=== PATIENT | male | born 1960 | race Hispanic/Latino ===

== ENCOUNTER 2018-01-20 12:41 | Emergency (ER) | payer BC ==
[2018-01-20] MEDS ORDERED: ASPIRIN 81 MG CHEWABLE TABLET ONE (13:36)
[2018-01-20] MEDS ORDERED: NA CHLORIDE 0.9% 500 ML ONE (13:36)
[2018-01-20 13:39] LABS: Absolute Lymphocytes (CBC) 4.4 K/uL (0.7-4.9); Absolute Monocytes 0.9 K/uL (0.1-1.3); Absolute Neutrophil 7.6 K/uL (1.8-8.0); Basophils % 0.7 % (0-1.3); Eosinophils % 0.7 % (0-4.4); Hematocrit 41.3 % (39.6-49.0); Lymphocytes % 33.6 % (15.3-44.8); MCH 30.2 pg (27.0-35.0); MCV 91.1 fL (80-100); MPV 8.7 fL (7.6-11.3); RBC Red Blood Cell Count 4.53 M/uL (4.33-5.43)
[2018-01-20 13:49] LABS: Bicarbonate 28 mEq/L (21-31); Glucose Level 115 mg/dL (65-120); Potassium 3.1 mEq/L (3.6-5.0); Sodium Level 141 mEq/L (135-145)
[2018-01-20 13:56] LABS: ALT/SGPT 17 IU/L (10-60); AST/SGOT 15 IU/L (10-42); Albumin 3.5 g/dL (3.2-5.5); Alkaline Phosphatase 59 IU/L (42-121); BUN Blood Urea Nitrogen 14 mg/dL (6-20); Bilirubin Direct < 0.1 mg/dL (0-0.2); Bilirubin Total 0.6 mg/dL (0.3-1.2); Creatine Phosphokinase 59 IU/L (22-269); Magnesium 1.8 mg/dL (1.8-2.5); Protein, Total 6.3 g/dL (6.0-8.3)
--- NOTE | 2018-01-20 14:26 | RAD REPORT ---
EXAM DESCRIPTION: RAD - Chest Single View - 01/20/2018 1:35 pm CLINICAL HISTORY: Chest pain COMPARISON: None. TECHNIQUE: AP portable chest image was obtained 1332 hours . FINDINGS: Lungs are clear. Heart and vasculature are normal. No measurable pleural effusion and no p neumothorax. No gross bony abnormality seen. No acute aortic findings suspected. IMPRESSION: No acute cardiopulmonary process.
[2018-01-20 16:11] LABS: Urine Blood TRACE (NEG); Urine Glucose NEGATIVE (NEG); Urine Protein NEGATIVE (NEG); Urine Specific Gravity >1.030 (1.005-1.030); Urine pH 5.5 (5.0-7.0)
--- NOTE | 2018-01-20 18:24 | ER ---
Nurse's Notes [facility] Name: Goyo Correa Jr Age: 57 yrs Sex: Male : 1960 Arrival Date: 01/20/2018 Time: 12:45 Bed 30 Private MD: None, None Diagnosis: Chest pain, unspecified;Hypertensive heart disease-not controlled Presentation: 01/20 12:49 Presenting complaint: Patient states: Chest pain that started 2 days ago after given aj steroid injection for allergic reaction. Patient reports chest pain was worse after doing yard work this AM. Transition of care: patient was not received from another setting of care. Onset of symptoms was January 20, 2018. Care prior to arrival: None. 12:49 Method Of Arrival: Ambulatory aj 12:49 Acuity: BELLE 3 aj 13:05 Risk Assessment: Do you want to hurt yourself or someone else? Patient reports no kr2 desire to harm self or others. Initial Sepsis Screen: Does the patient meet any 2 criteria? No. Patient's initial sepsis screen is negative. Does the patient have a suspected source of infection? No. Patient's initial sepsis screen is negative. Triage Assessment: 12:50 General: Appears in no apparent distress. comfortable, Behavior is calm, cooperative, aj appropriate for age. Pain: Complains of pain in right clavicle, left clavicle, anterior aspect of right upper chest and anterior aspect of left upper chest. Neuro: Level of Consciousness is awake, alert, obeys commands, Oriented to person, place, time, situation, Appropriate for age. Cardiovascular: Reports chest pain. Respiratory: Airway is patent Respiratory effort is even, unlabored, Respiratory pattern is regular, symmetrical. Derm: Skin is intact, is healthy with good turgor, Skin is pink, warm \T\ dry. normal. Historical: - Allergies: 12:50 Bees; aj - Home Meds: 12:50 prednisone Oral [Active]; aj - PMHx: 12:50 Hypertension; aj - PSHx: 12:50 None; aj - Immunization history:: Adult Immunizations up to date. - Social history:: Smoking status: Patient uses tobacco products, smokes one pack cigarettes per day. Patient uses alcohol, on a daily basis. - Ebola Screening: : No symptoms or risks identified at this time. Screenin:05 Abuse screen: Denies threats or abuse. Denies injuries from another. Nutritional kr2 screening: No deficits noted. Tuberculosis screening: No symptoms or risk factors identified. Fall Risk None identified. Assessment: 13:03 General: Appears in no apparent distress. comfortable, well groomed, well developed, kr2 well nourished, Behavior is calm, cooperative, appropriate for age. Pain: Complains of pain in anterior aspect of right upper chest, anterior aspect of left upper chest and mid-sternal area Pain does not radiate. Pain currently is 0 out of 10 on a pain scale. at worst was 8 out of 10 on a pain scale. Quality of pain is described as sharp, Pain began 1 day ago. Is intermittent, Alleviated by rest, Aggravated by increased activity. Neuro: Level of Consciousness is awake, alert, obeys commands, Oriented to person, place, time, situation. Cardiovascular: Capillary refill < 3 seconds in bilateral fingers Patient's skin is warm and dry. Rhythm is sinus rhythm. Respiratory: Airway is patent Respiratory effort is even, unlabored, Respiratory pattern is regular, symmetrical. GI: Abdomen is flat, non-distended. : No signs and/or symptoms were reported regarding the genitourinary system. EENT: Oral mucosa is moist. Derm: Skin is intact, is healthy with good turgor, Skin is pink, warm \T\ dry. Musculoskeletal: Circulation, motion, and sensation intact. 14:00 Reassessment: Patient appears in no apparent distress at this time. Patient and/or kr2 family updated on plan of care and expected duration. Pain level reassessed. Patient is alert, oriented x 3, equal unlabored respirations, skin warm/dry/pink. Patient denies pain at this time. 15:00 Reassessment: Patient appears in no apparent distress at this time. Patient and/or kr2 family updated on plan of care and expected duration. Pain level reassessed. Patient is alert, oriented x 3, equal unlabored respirations, skin warm/dry/pink. Patient states feeling better. 16:14 Reassessment: Patient appears in no apparent distress at this time. Patient and/or kr2 family updated on plan of care and expected duration. Pain level reassessed. Patient is alert, oriented x 3, equal unlabored respirations, skin warm/dry/pink. Patient denies pain at this time. 16:15 Reassessment: Called lab to check on results of blood work, laboratory tech reports they had a kr2 machine down and so they got behind on chemistries and are now working to catch up. Patient and family notified. 17:15 Reassessment: Patient appears in no apparent distress at this time. Patient and/or kr2 family updated on plan of care and expected duration. Pain level reassessed. Patient is alert, oriented x 3, equal unlabored respirations, skin warm/dry/pink. Patient denies pain at this time. Patient states feeling better. 18:39 Reassessment: Patient appears in no apparent distress at this time. Patient and/or kr2 family updated on plan of care and expected duration. Pain level reassessed. Patient is alert, oriented x 3, equal unlabored respirations, skin warm/dry/pink. Patient denies pain at this time. Patient states feeling better. Vital Signs: 12:50 BP 161 / 106; Pulse 62; Resp 19; Temp 98.3; Pulse Ox 98% on R/A; Weight 95.25 kg; aj Height 5 ft. 9 in. (175.26 cm); 13:40 BP 155 / 78; Pulse 58; Resp 18; Pulse Ox 98% on R/A; kr2 15:00 BP 132 / 77; Pulse 58; Resp 17; Pulse Ox 100% on R/A; kr2 16:16 BP 134 / 85; Pulse 63; Resp 17; Pulse Ox 99% on R/A; kr2 17:44 BP 157 / 85; Pulse 90; Resp 18; Pulse Ox 99% on R/A; mh5 12:50 Body Mass Index 31.01 (95.25 kg, 175.26 cm) ED Course: 12:45 Patient arrived in ED. mr 12:45 None, None is Private Physician. mr 12:49 Triage completed. aj 12:50 Arm band placed on right wrist. Patient placed in an exam room. EKG completed in triage. Results shown to MD. 12:55 Anthony Zamudio PA is PHCP. cp 12:55 Himanshu Aparicio MD is Attending Physician. cp 12:55 EKG done, by county program technician. reviewed by Anthony BAIRES. at1 13:03 Taylor Pa, RN is Primary Nurse. kr2 13:06 Patient has correct armband on for positive identification. Bed in low position. Call kr2 light in reach. Side rails up X 1. Adult w/ patient. bulk clerk on. Pulse ox on. NIBP on. Door closed. Warm blanket given. Head of bed elevated. 13:06 Patient maintains SpO2 saturation greater than 95% on room air. kr2 13:25 Inserted saline lock: 20 gauge in right antecubital area, using aseptic technique. kr2 Blood collected. 13:34 X-ray completed. Portable x-ray completed in exam room. Patient tolerated procedure mh1 well. 13:35 XRAY Chest (1 view) In Process Unspecified. EDMS 16:58 EKG done, by county program technician. reviewed by Anthony BAIRES. 3 18:23 Jose Raul Wu MD is Referral Physician. cp 18:39 No provider procedures requiring assistance completed. IV discontinued, intact, kr2 bleeding controlled, No redness/swelling at site. Pressure dressing applied. Administered Medications: 13:40 Drug: NS 0.9% 500 ml Route: IV; Rate: bolus; Site: right antecubital; kr2 15:00 Follow up: Response: No adverse reaction; IV Status: Completed infusion kr2 13:40 Drug: Aspirin Chewable Tablet 324 mg Route: PO; kr2 14:41 Follow up: Response: No adverse reaction kr2 18:37 Drug: Potassium Chloride 40 mEq Route: PO; kr2 18:38 Follow up: Response: Medication administered at discharge. kr2 18:37 Drug: Norvasc 10 mg Route: PO; kr2 18:38 Follow up: Response: No adverse reaction; Medication administered at discharge. kr2 Outcome: 18:23 Discharge ordered by MD. cp 18:40 Discharged to home ambulatory, with family. kr2 18:40 Condition: good 18:40 Discharge instructions given to patient, family, Instructed on discharge instructions, follow up and referral plans. medication usage, Demonstrated understanding of instructions, follow-up care, medications, Prescriptions given X 1. 18:40 Patient left the ED. kr2 Signatures: Dispatcher [employer] EDMS Gianna Torrez RN RN aj Rivera, Maria García Gloriaha mh1 Gianna correa, blanket weaver EKG Tat1 Anthony Zamudio PA PA cp Martinez, Maria 5 Taylor Pa RN RN kr2 Angélica Lawton 3 Corrections: (The following items were deleted from the chart) 12:52 12:50 Arm band placed on right wrist. Patient placed in waiting room, Patient notified aj of wait time aj
--- NOTE | 2018-01-20 18:24 | EDPHYS ---
Physician Documentation [facility] Name: Goyo Correa Jr Age: 57 yrs Sex: Male : 1960 Arrival Date: 01/20/2018 Time: 12:45 Bed 30 Private MD: None, None ED Physician Himanshu Aparicio HPI: 01/20 13:09 This 57 yrs old Male presents to ER via Ambulatory with complaints of Chest cp Pain. Historical: - Allergies: 12:50 Bees; aj - Home Meds: 12:50 prednisone Oral [Active]; aj - PMHx: 12:50 Hypertension; aj - PSHx: 12:50 None; aj - Immunization history:: Adult Immunizations up to date. - Social history:: Smoking status: Patient uses tobacco products, smokes one pack cigarettes per day. Patient uses alcohol, on a daily basis. - Ebola Screening: : No symptoms or risks identified at this time. ROS: 13:10 Constitutional: Negative for body aches, chills, fever, poor PO intake. cp 13:10 Eyes: Negative for injury, pain, redness, and discharge. cp Exam: 13:10 ECG was reviewed by the Attending Physician. cp 13:15 Constitutional: The patient appears in no acute distress, alert, awake, comfortable, cp non-diaphoretic, non-toxic, well developed, well nourished. 13:15 Head/Face: Normocephalic, atraumatic. cp 16:45 ECG was reviewed by the Attending Physician. cp Vital Signs: 12:50 BP 161 / 106; Pulse 62; Resp 19; Temp 98.3; Pulse Ox 98% on R/A; Weight 95.25 kg; aj Height 5 ft. 9 in. (175.26 cm); 13:40 BP 155 / 78; Pulse 58; Resp 18; Pulse Ox 98% on R/A; kr2 15:00 BP 132 / 77; Pulse 58; Resp 17; Pulse Ox 100% on R/A; kr2 16:16 BP 134 / 85; Pulse 63; Resp 17; Pulse Ox 99% on R/A; kr2 17:44 BP 157 / 85; Pulse 90; Resp 18; Pulse Ox 99% on R/A; mh5 12:50 Body Mass Index 31.01 (95.25 kg, 175.26 cm) aj MDM: 12:55 Patient medically screened. 18:22 Data reviewed: vital signs, nurses notes, lab test result(s), EKG, radiologic studies, cp plain films. 18:22 Test interpretation: by ED physician or midlevel provider: ECG, plain radiologic cp studies. Counseling: I had a detailed discussion with the patient and/or guardian regarding: the historical points, exam findings, and any diagnostic results supporting the discharge/admit diagnosis, lab results, radiology results, the need for outpatient follow up, a slip caster. 01/20 13:09 Order name: Basic Metabolic Panel cp 01/20 16:27 Interpretation: Normal except: K 3.1. cp 01/20 13:09 Order name: BNP; Complete Time: 15:54 cp 01/20 15:54 Interpretation: Abnormal: BNP 161. cp 01/20 13:09 Order name: CBC with Diff; Complete Time: 14:38 cp 01/20 14:39 Interpretation: Normal except: WBC 13.1. cp 01/20 13:09 Order name: Ckmb cp 01/20 13:09 Order name: CPK cp 01/20 13:09 Order name: LFT's cp 01/20 13:09 Order name: Magnesium cp 01/20 13:09 Order name: PT-INR; Complete Time: 14:38 cp 01/20 13:09 Order name: Ptt, Activated; Complete Time: 14:38 cp 01/20 13:09 Order name: Troponin (emerg Dept Use Only); Complete Time: 15:54 cp 01/20 16:27 Interpretation: TROPED < 0.03; Reviewed. 01/20 13:09 Order name: XRAY Chest (1 view); Complete Time: 14:38 cp 01/20 15:55 Order name: Urine Dipstick--Ancillary (enter results); Complete Time: 16:27 bd 01/20 16:27 Interpretation: Normal except: USPGR >1.030; UBLD TRACE. cp 01/20 16:33 Order name: Troponin I; Complete Time: 18:21 cp 01/20 12:55 Order name: EKG; Complete Time: 12:56 cp 01/20 12:55 Order name: EKG - Nurse/Tech; Complete Time: 13:31 cp 01/20 13:09 Order name: Cardiac monitoring; Complete Time: 13:31 cp 01/20 13:09 Order name: IV Saline Lock; Complete Time: 13: 01/20 13:09 Order name: Labs collected and sent; Complete Time: : 01/20 13: Order name: O2 Per Protocol; Complete Time: : 01/20 13:09 Order name: O2 Sat Monitoring; Complete Time: 13: 01/20 13:09 Order name: Urine Dipstick-Ancillary (obtain specimen); Complete Time: 16:17 01/20 16:33 Order name: EKG; Complete Time: 16:34 01/20 16:33 Order name: EKG - Nurse/Tech cp EC:10 Rate is 63 beats/min. Rhythm is regular. AR interval is normal. QRS interval is cp prolonged at 104 msec. QT interval is normal. No ST changes noted. Interpreted by me. Reviewed by me. 16:45 Rate is 49 beats/min. Rhythm is regular. AR interval is normal. QRS interval is normal. cp QT interval is normal. No ST changes noted. Interpreted by me. Reviewed by me. Administered Medications: 13:40 Drug: NS 0.9% 500 ml Route: IV; Rate: bolus; Site: right antecubital; kr2 15:00 Follow up: Response: No adverse reaction; IV Status: Completed infusion kr2 13:40 Drug: Aspirin Chewable Tablet 324 mg Route: PO; kr2 14:41 Follow up: Response: No adverse reaction kr2 18:37 Drug: Potassium Chloride 40 mEq Route: PO; kr2 18:38 Follow up: Response: Medication administered at discharge. kr2 18:37 Drug: Norvasc 10 mg Route: PO; kr2 18:38 Follow up: Response: No adverse reaction; Medication administered at discharge. kr2 Disposition: 19:21 Co-signature as Attending Physician, Himanshu Aparicio MD I agree with the assessment and kdr plan of care. Disposition: 01/20/18 18:23 Discharged to Home. Impression: Chest pain, unspecified, Hypertensive heart disease - not controlled. - Condition is Stable. - Discharge Instructions: Nonspecific Chest Pain, Hypertension, How to Take Your Blood Pressure, [id number], Aspirin and Your Heart, Managing Your High Blood Pressure. - Prescriptions for Norvasc 5 mg Oral Tablet - take 1 tablet by ORAL route once daily; 20 tablet. - Medication Reconciliation Form, Thank You Letter, Antibiotic Education, Prescription Opioid Use form. - Follow up: Jose Raul Wu MD; When: 2 - 3 days; Reason: Recheck today's complaints. - Problem is new. - Symptoms have improved. Signatures: Dispatcher [employer] EDGianna Olsen RN RN Himanshu Cuello MD MD kdr Anthony Zamudio PA PA cp Taylor Pa RN RN kr2 Corrections: (The following items were deleted from the chart) 18:40 18:23 01/20/2018 18:23 Discharged to Home. Impression: Chest pain, unspecified; kr2 Hypertensive heart disease - not controlled. Condition is Stable. Forms are Medication Reconciliation Form, Thank You Letter, Antibiotic Education, Prescription Opioid Use. Follow up: Jose Raul Wu; When: 2 - 3 days; Reason: Recheck today's complaints. Problem is new. Symptoms have improved. cp
[2018-01-20] MEDS ORDERED: POTASSIUM CL SA 10 MEQ TAB PO ONE (18:30)
[2018-01-20] MEDS ORDERED: AMLODIPINE 5 MG TAB ONE (18:30)
[2018-01-20 19:10] LABS: CKMB Creatine Kinase MB 1.3 ng/ml (0.3-4.0)
--- NOTE | 2018-01-21 06:57 | EKG ---
Test Date: 2018-01-20 Test Time: 12:55:59 Capacitor Assembler: MARIYA MEASUREMENT RESULTS: Intervals: Rate: 63 AL: 136 QRSD: 104 QT: 422 QTc: 431 [place]: P: 73 AL: 136 QRS: 53 T: 53 INTERPRETIVE STATEMENTS: Normal sinus rhythm with sinus arrhythmia Normal ECG No previous ECG available for comparison Electronically Signed On 01-21-18 06:55:27 CDT by Jose Raul Wu
--- NOTE | 2018-01-21 06:57 | EKG ---
Test Date: 2018-01-20 Test Time: 16:38:18 File Clerk: MARIYA MEASUREMENT RESULTS: Intervals: Rate: 49 NE: 142 QRSD: 98 QT: 496 QTc: 448 [place]: P: 53 NE: 142 QRS: 43 T: 48 INTERPRETIVE STATEMENTS: Sinus bradycardia Nonspecific T wave abnormality Abnormal ECG Compared to ECG 01/20/2018 12:55:59 T-wave abnormality now present Sinus rhythm no longer present Sinus arrhythmia no longer present Electronically Signed On 01-21-18 06:55:15 CDT by Jose Raul Wu
== END 2018-01-20 18:40 | disposition home or self-care (01) ==
LOC: ER 12:41
DX: I11.9 Hypertensive heart disease without heart failure (principal); F17.210 Nicotine dependence, cigarettes, uncomplicated
CPT/HCPCS: 36415; 71045; 80048; 80076; 81003; 82550; 82553; 83735; 83880; 84484; 85025; 85610; 85730; 93005; 96360; 99285

== ENCOUNTER 2018-01-26 03:04 | Emergency (ER) | payer BC ==
[2018-01-26] MEDS ORDERED: FAMOTIDINE 20 MG/2 ML VIAL IV ONE (03:38)
[2018-01-26] MEDS ORDERED: METHYLPREDNISOLONE 125 MG INJ ONE (03:38)
[2018-01-26] MEDS ORDERED: DIPHENHYDRAMINE 50 MG/ML VIAL ONE (03:38)
--- NOTE | 2018-01-26 06:15 | ER ---
Nurse's Notes [facility] Name: Goyo Correa Jr Age: 57 yrs Sex: Male : 1960 Arrival Date: 01/26/2018 Time: 03:05 Bed 7 Private MD: None, None Diagnosis: Angioedema Presentation: 01/26 03:16 Presenting complaint: Patient states: I have swelling on the left side of my mouth and tl2 my left hand. Denies difficulty breathing. Reports stopping his amlodipine yesterday due to feet swelling. Pt reports having a swollen tongue 2 weeks ago. Transition of care: patient was not received from another setting of care. Onset of symptoms was January 26, 2018 at 02:00. Risk Assessment: Do you want to hurt yourself or someone else? Patient reports no desire to harm self or others. Initial Sepsis Screen: Does the patient meet any 2 criteria? No. Patient's initial sepsis screen is negative. Does the patient have a suspected source of infection? No. Patient's initial sepsis screen is negative. Care prior to arrival: None. 03:16 Method Of Arrival: Ambulatory tl2 03:16 Acuity: BELLE 3 tl2 Triage Assessment: 03:18 General: Appears in no apparent distress. comfortable, Behavior is calm, cooperative, tl2 appropriate for age. Pain: Denies pain. Neuro: Level of Consciousness is awake, alert, obeys commands, Oriented to person, place, time, situation. Cardiovascular: Denies chest pain. Respiratory: Airway is patent Respiratory effort is even, unlabored, Respiratory pattern is regular, symmetrical. GI: No signs and/or symptoms were reported involving the gastrointestinal system. : No signs and/or symptoms were reported regarding the genitourinary system. Derm: Skin is pink, warm \T\ dry. Reports itching. Musculoskeletal: Swelling present in left hand. Historical: - Allergies: 03:18 Bees; tl2 - Home Meds: 03:18 Prednisone Oral [Active]; tl2 - PMHx: 03:18 Hypertension; tl2 - Immunization history:: Adult Immunizations up to date. - Social history:: Smoking status: Patient/guardian denies using tobacco. - Ebola Screening: : No symptoms or risks identified at this time. - Family history:: not pertinent. - Hospitalizations: : No recent hospitalization is reported. Screenin:25 Abuse screen: Denies threats or abuse. Nutritional screening: No deficits noted. tl2 Tuberculosis screening: No symptoms or risk factors identified. Fall Risk None identified. Assessment: 03:46 General: see triage assessment. tl2 04:40 Reassessment: Patient appears in no apparent distress at this time. No changes from tl2 previously documented assessment. Patient and/or family updated on plan of care and expected duration. Pain level reassessed. Patient is alert, oriented x 3, equal unlabored respirations, skin warm/dry/pink. 05:34 Reassessment: Patient appears in no apparent distress at this time. Patient and/or tl2 family updated on plan of care and expected duration. Pain level reassessed. Patient is alert, oriented x 3, equal unlabored respirations, skin warm/dry/pink. Swelling in face and hand have not changed. Pt denies any pain or breathing difficulty. MD notified. 06:43 Reassessment: Patient appears in no apparent distress at this time. Patient and/or tl2 family updated on plan of care and expected duration. Pain level reassessed. Patient is alert, oriented x 3, equal unlabored respirations, skin warm/dry/pink. Pt and family verbalized understanding of discharge instructions, need for follow up and prescription usage Patient states feeling better. Vital Signs: 03:18 BP 109 / 54; Pulse 77; Resp 18; Temp 98.3(O); Pulse Ox 100% on R/A; Weight 95.25 kg; tl2 Height 5 ft. 9 in. (175.26 cm); Pain 0/10; 04:39 BP 119 / 77; Pulse 54; Resp 18; Pulse Ox 96% on R/A; tl2 05:34 BP 111 / 73; Pulse 52; Resp 18; Pulse Ox 97% on R/A; tl2 06:43 BP 129 / 91; Pulse 56; Resp 18; Pulse Ox 97% on R/A; tl2 03:18 Body Mass Index 31.01 (95.25 kg, 175.26 cm) tl2 ED Course: 03:05 Patient arrived in ED. ds1 03:05 None, None is Private Physician. ds1 03:06 Dominic Velazquez MD is Attending Physician. rn 03:16 Shanta Carrillo RN is Primary Nurse. tl2 03:17 Triage completed. tl2 03:18 Arm band placed on right wrist. tl2 03:25 Patient has correct armband on for positive identification. Bed in low position. Call tl2 light in reach. Side rails up X 1. Adult w/ patient. 03:45 Inserted saline lock: 20 gauge in left antecubital area, using aseptic technique. tl2 06:43 No provider procedures requiring assistance completed. IV discontinued, intact, tl2 bleeding controlled, No redness/swelling at site. Pressure dressing applied. Administered Medications: 03:46 Drug: SOLU-Medrol 125 mg Route: IVP; Site: left antecubital; tl2 06:45 Follow up: Response: No adverse reaction; No change in condition tl2 03:46 Drug: Pepcid 20 mg Route: IVP; Site: left antecubital; tl2 06:46 Follow up: Response: No adverse reaction; No change in condition tl2 03:46 Drug: Benadryl 25 mg Route: IVP; Site: left antecubital; tl2 06:46 Follow up: Response: No adverse reaction; No change in condition tl2 Outcome: 06:15 Discharge ordered by . rn 06:43 Discharged to home ambulatory, with family. tl2 06:43 Condition: stable 06:43 Discharge instructions given to patient, family, Instructed on discharge instructions, follow up and referral plans. medication usage, Demonstrated understanding of instructions, follow-up care, medications, Prescriptions given X 2. 06:46 Patient left the ED. tl2 Signatures: Erin Diallo ds1 Dominic Velazquez MD MD rn Knox, Taylor, RN RN tl2
--- NOTE | 2018-01-26 06:16 | EDPHYS ---
Physician Documentation [facility] Name: Goyo Correa Jr Age: 57 yrs Sex: Male : 1960 Arrival Date: 01/26/2018 Time: 03:05 Bed 7 Private MD: None, None ED Physician Dominic Velazquez HPI: 01/26 05:15 This 57 yrs old Male presents to ER via Ambulatory with complaints of Swelling.rn 05:15 The patient or guardian reports swelling. The complaints affect the left hand rn diffusely. Onset: The symptoms/episode began/occurred yesterday. Modifying factors: The symptoms are alleviated by nothing, the symptoms are aggravated by nothing. Severity of symptoms: At their worst the symptoms were moderate, in the emergency department the symptoms are unchanged. The patient has experienced a previous episode. Reports hand and left face swelling, began today, had happen to right hand a few weeks ago, then had tongue swelling last week, felt fine when went to bed, woke up with swelling. No oral or tongue swelling. No fever. No trauma. . Historical: - Allergies: 03:18 Bees; tl2 - Home Meds: 03:18 Prednisone Oral [Active]; tl2 - PMHx: 03:18 Hypertension; tl2 - Immunization history:: Adult Immunizations up to date. - Social history:: Smoking status: Patient/guardian denies using tobacco. - Ebola Screening: : No symptoms or risks identified at this time. - Family history:: not pertinent. - Hospitalizations: : No recent hospitalization is reported. ROS: 05:15 Constitutional: Negative for fever, chills, and weight loss, Eyes: Negative for injury, rn pain, redness, and discharge, Neck: Negative for injury, pain, and swelling, Cardiovascular: Negative for chest pain, palpitations, and edema, Respiratory: Negative for shortness of breath, cough, wheezing, and pleuritic chest pain, Abdomen/GI: Negative for abdominal pain, nausea, vomiting, diarrhea, and constipation, Back: Negative for injury and pain, MS/Extremity: Negative for injury and deformity, Skin: Negative for injury, rash, and discoloration, Neuro: Negative for headache, weakness, numbness, tingling, and seizure. Exam: 05:15 Constitutional: This is a well developed, well nourished patient who is awake, alert, rn and in no acute distress. Head/Face: Mild swelling to left buccal space, no warmth or fluctuance Eyes: Pupils equal round and reactive to light, extra-ocular motions intact. Lids and lashes normal. Conjunctiva and sclera are non-icteric and not injected. Cornea within normal limits. Periorbital areas with no swelling, redness, or edema. ENT: No oral or tongue swelling, no stridor Cardiovascular: Regular rate and rhythm with a normal S1 and S2. No gallops, murmurs, or rubs. Normal PMI, no JVD. No pulse deficits. Respiratory: Lungs have equal breath sounds bilaterally, clear to auscultation and percussion. No rales, rhonchi or wheezes noted. No increased work of breathing, no retractions or nasal flaring. Abdomen/GI: Soft, non-tender, with normal bowel sounds. No distension or tympany. No guarding or rebound. No evidence of tenderness throughout. MS/ Extremity: Pulses equal, no cyanosis. Neurovascular intact. Full, normal range of motion. + mild diffuse swelling of left hand without signs of infection, no fluctuance, no break in skin. swelling extends just proximal to left wrist. Neuro: Awake and alert, GCS 15, oriented to person, place, time, and situation. Cranial nerves II-XII grossly intact. Motor strength 5/5 in all extremities. Sensory grossly intact. Cerebellar exam normal. Normal gait. Vital Signs: 03:18 BP 109 / 54; Pulse 77; Resp 18; Temp 98.3(O); Pulse Ox 100% on R/A; Weight 95.25 kg; tl2 Height 5 ft. 9 in. (175.26 cm); Pain 0/10; 04:39 BP 119 / 77; Pulse 54; Resp 18; Pulse Ox 96% on R/A; tl2 05:34 BP 111 / 73; Pulse 52; Resp 18; Pulse Ox 97% on R/A; tl2 06:43 BP 129 / 91; Pulse 56; Resp 18; Pulse Ox 97% on R/A; tl2 03:18 Body Mass Index 31.01 (95.25 kg, 175.26 cm) tl2 MDM: 03:06 Patient medically screened. rn 06:13 Differential diagnosis: angioedema. Data reviewed: vital signs, nurses notes, and as a rn result, I will discharge patient. Counseling: I had a detailed discussion with the patient and/or guardian regarding: the historical points, exam findings, and any diagnostic results supporting the discharge/admit diagnosis, the need for outpatient follow up, to return to the emergency department if symptoms worsen or persist or if there are any questions or concerns that arise at home. Response to treatment: There is no appreciated change of the patient's symptoms at this time, and as a result, I will discharge patient. Special discussion: I discussed with the patient/guardian in detail that at this point there is no indication for admission to the hospital. It is understood, however, that if the symptoms persist or worsen the patient needs to return immediately for re-evaluation. Special discussion: Based on the history and exam findings, there is no indication for further emergent testing or inpatient evaluation. I discussed with the patient/guardian the need to see the deck scaler for further evaluation of the symptoms. ED course: Pt not getting worse, + swelling to left cheek and left hand, has had separate tongue and right hand swelling in past, most likely angioedema not related to allergic reaction, return precautions given, no airway involvement like previous, will dc home with steroids. . 06:13 ED course: Has f/u appt with pcp today for reeval.. rn 01/26 03:25 Order name: IV Start; Complete Time: 03:36 rn Administered Medications: 03:46 Drug: SOLU-Medrol 125 mg Route: IVP; Site: left antecubital; tl2 06:45 Follow up: Response: No adverse reaction; No change in condition tl2 03:46 Drug: Pepcid 20 mg Route: IVP; Site: left antecubital; tl2 06:46 Follow up: Response: No adverse reaction; No change in condition tl2 03:46 Drug: Benadryl 25 mg Route: IVP; Site: left antecubital; tl2 06:46 Follow up: Response: No adverse reaction; No change in condition tl2 Disposition: 01/26/18 06:15 Discharged to Home. Impression: Angioedema. - Condition is Stable. - Discharge Instructions: Angioedema. - Prescriptions for Prednisone 20 mg Oral Tablet - take 3 tablet by ORAL route once daily for 5 days; 15 tablet. EpiPen 0.3 mg Injection auto- injector - inject 1 pen by INTRAMUSCULAR route one time Inject into the outer portion of the thigh, through clothing if necessary. Indicated in the emergency treatment of allergic reactions; 1 packet. - Medication Reconciliation Form, Thank You Letter, Antibiotic Education, Prescription Opioid Use form. - Follow up: Private Physician; When: Today; Reason: Recheck today's complaints, Re-evaluation by your physician. - Problem is new. - Symptoms have improved. Signatures: Dominic Velazquez MD MD rn Knox, Taylor, RN RN tl2 Corrections: (The following items were deleted from the chart) 06:46 06:15 01/26/2018 06:15 Discharged to Home. Impression: Angioedema. Condition is Stable. tl2 Forms are Medication Reconciliation Form, Thank You Letter, Antibiotic Education, Prescription Opioid Use. Follow up: Private Physician; When: Today; Reason: Recheck today's complaints, Re-evaluation by your physician. Problem is new. Symptoms have improved. rn
== END 2018-01-26 06:46 | disposition home or self-care (01) ==
LOC: ER 03:04
DX: T78.3XXA Angioneurotic edema, initial encounter (principal); I10 Essential (primary) hypertension; Z91.030 Bee allergy status
CPT/HCPCS: 96374; 96375; 99283; J2930

== ENCOUNTER 2018-07-27 08:18 | Emergency (ER) | payer BC ==
[2018-07-27] MEDS ORDERED: METHYLPREDNISOLONE 125 MG INJ ONE (09:47)
[2018-07-27] MEDS ORDERED: DIPHENHYDRAMINE 50 MG/ML VIAL ONE (09:47)
[2018-07-27] MEDS ORDERED: FAMOTIDINE 20 MG/2 ML VIAL IV ONE (09:48)
[2018-07-27] MEDS ORDERED: NA CHLORIDE 0.9% 1,000 ML ONE (09:48)
[2018-07-27] MEDS ORDERED: predniSONE 20 MG TAB ONE (09:48)
[2018-07-27 10:14] LABS: Absolute Lymphocytes (CBC) 2.6 K/uL (0.7-4.9); Absolute Monocytes 1.2 K/uL (0.1-1.3); Absolute Neutrophil 12.6 K/uL (1.8-8.0); Basophils % 0.4 % (0-1.3); Eosinophils % 1.5 % (0-4.4); Hematocrit 46.6 % (39.6-49.0); Lymphocytes % 15.5 % (15.3-44.8); MCH 30.8 pg (27.0-35.0); MCV 91.5 fL (80-100); MPV 8.2 fL (7.6-11.3); Monocytes % 7.2 % (3.3-12.3); RBC Red Blood Cell Count 5.09 M/uL (4.33-5.43)
[2018-07-27 10:24] LABS: Protime INR 1.01
[2018-07-27 10:33] LABS: ALT/SGPT 44 U/L (12-78); AST/SGOT 27 U/L (15-37); Albumin 4.1 g/dL (3.4-5.0); Alkaline Phosphatase 95 U/L (45-117); BUN Blood Urea Nitrogen 12 mg/dL (7-18); Bicarbonate 24 mmol/L (21-32); Bilirubin Direct 0.2 mg/dL (0-0.2); Bilirubin Total 0.5 mg/dL (0.2-1.0); Glucose Level 81 mg/dL (74-106); Magnesium 2.2 mg/dL (1.8-2.4); NT PRO-BNP 27 pg/mL (<125); Protein, Total 8.2 g/dL (6.4-8.2); Sodium Level 140 mmol/L (136-145); Troponin (Emerg Dept Use Only) < 0.02 ng/mL (0.0-0.045)
--- NOTE | 2018-07-27 11:00 | ER ---
Nurse's Notes [facility] Name: Goyo Correa Jr Age: 58 yrs Sex: Male : 1960 Arrival Date: 07/27/2018 Time: 08:23 Bed 18 Private MD: Abner Oconnor T Diagnosis: Angioneurotic edema;Elevated white blood cell count Presentation: 07/27 08:29 Presenting complaint: Patient states: yesterday evening, feet were swollen real bad, iw last night right arm swelling, this morning woke up with swollen tongue, had similar reaction in January, unknown allergen. Transition of care: patient was not received from another setting of care. Onset: The symptoms/episode began/occurred yesterday. Anaphylaxis evaluation, no signs or symptoms of anaphylaxis were noted. Onset of symptoms was July 26, 2018. Risk Assessment: Do you want to hurt yourself or someone else? Patient reports no desire to harm self or others. Initial Sepsis Screen: Does the patient meet any 2 criteria? No. Patient's initial sepsis screen is negative. Does the patient have a suspected source of infection? No. Patient's initial sepsis screen is negative. Care prior to arrival: None. 08:29 Method Of Arrival: Ambulatory iw 08:29 Acuity: BELLE 3 iw Historical: - Allergies: 08:33 Bees; iw - Home Meds: 08:33 Bactrim DS 800-160 mg Oral tab 1 tab 2 times per day [Active]; rifampin Oral 2 times iw per day [Active]; metoprolol tartrate 25 mg Oral tab 1 tab once daily [Active]; montelukast 10 mg oral tab 1 tab once daily [Active]; Clare 180 mg Oral tab 1 tab once daily [Active]; - PMHx: 08:33 Hypertension; iw - PSHx: 08:33 left knee; iw - Immunization history:: Adult Immunizations not up to date. - Social history:: Smoking status: Patient uses tobacco products, smokes one pack cigarettes per day. - Ebola Screening: : Patient negative for fever greater than or equal to 101.5 degrees Fahrenheit, and additional compatible Ebola Virus Disease symptoms Patient denies exposure to infectious person Patient denies travel to an Ebola-affected area in the 21 days before illness onset No symptoms or risks identified at this time. - Family history:: not pertinent. Screenin:15 Abuse screen: Denies threats or abuse. Denies injuries from another. Nutritional sg screening: No deficits noted. Tuberculosis screening: No symptoms or risk factors identified. Never had TB. Fall Risk None identified. Assessment: 10:13 General: Appears in no apparent distress. comfortable, well groomed, well developed, sg well nourished, Behavior is calm, cooperative, appropriate for age. Pain: Denies pain. Neuro: Level of Consciousness is awake, alert, obeys commands, Oriented to person, place, time, Project Manager Industrial are equal bilaterally Moves all extremities. Full function Speech is normal, Facial symmetry appears normal. Cardiovascular: Capillary refill is brisk in bilateral fingers Patient's skin is warm and dry. Chest pain is denied. Respiratory: Airway is patent Respiratory effort is even, unlabored, Respiratory pattern is regular, symmetrical, Breath sounds are clear. GI: No signs and/or symptoms were reported involving the gastrointestinal system. : No signs and/or symptoms were reported regarding the genitourinary system. EENT: Oral mucosa is moist. Throat is clear mild swelling noted to the tongue. Derm: Skin is pink, warm \T\ dry. Musculoskeletal: No signs and/or symptoms reported regarding the musculoskeletal system. 11:00 Reassessment: Patient appears in no apparent distress at this time. Patient and/or hb family updated on plan of care and expected duration. Pain level reassessed. Patient is alert, oriented x 3, equal unlabored respirations, skin warm/dry/pink. Patient denies pain at this time. Patient states feeling better. Patient states symptoms have improved. General: Appears. Vital Signs: 08:33 BP 151 / 77; Pulse 64; Resp 16; Temp 98.3(TE); Pulse Ox 100% on R/A; Weight 95.25 kg; iw Height 5 ft. 9 in. (175.26 cm); Pain 8/10; 10:15 BP 158 / 76; Pulse 66; Resp 17; Pulse Ox 100% on R/A; Pain 8/10; sg 08:33 Body Mass Index 31.01 (95.25 kg, 175.26 cm) iw ED Course: 08:23 Patient arrived in ED. mr 08:23 Abner Oconnor MD is Private Physician. mr 08:31 Triage completed. iw 08:33 Arm band placed on. iw 09:05 Anthony Malone MD is Attending Physician. kalli 09:36 Lillian Blair, ZOË is Primary Nurse. hb 09:45 Patient has correct armband on for positive identification. Placed in gown. Bed in low hb position. Call light in reach. Side rails up X 1. 09:45 Inserted saline lock: 20 gauge in left antecubital area, using aseptic technique. Blood hb collected. 09:49 EKG done, by emergency medical technician basic. reviewed by Anthony Malone MD. at1 10:13 Missed attempt(s): 20 gauge in right antecubital area. Bleeding controlled, band aid sg applied, catheter tip intact. 10:59 Abner Oconnor MD is Referral Physician. kalli 11:06 X-ray completed. Portable x-ray completed in exam room. Patient tolerated procedure jb2 well. 11:10 XRAY Chest (1 view) In Process Unspecified. EDMS 11:17 No provider procedures requiring assistance completed. IV discontinued, intact, hb bleeding controlled, No redness/swelling at site. Pressure dressing applied. Administered Medications: 10:15 Drug: NS 0.9% 1000 ml Route: IV; Rate: 1 bolus; Site: left antecubital; hb 11:17 Follow up: Response: No change in condition; IV Status: Completed infusion hb 10:15 Drug: Pepcid 40 mg Route: IVP; Site: left antecubital; hb 10:33 Follow up: Response: No adverse reaction hb 10:15 Drug: SOLU-Medrol 125 mg Route: IVP; Site: left antecubital; hb 10:33 Follow up: Response: No adverse reaction hb 10:15 Drug: predniSONE 60 mg Route: PO; hb 10:33 Follow up: Response: No adverse reaction hb 10:15 Drug: Benadryl 50 mg Route: IVP; Site: left antecubital; hb 10:45 Follow up: Response: No adverse reaction hb Outcome: 11:00 Discharge ordered by . kalli 11:17 Discharged to home ambulatory. hb 11:17 Condition: stable 11:17 Discharge instructions given to patient, Instructed on discharge instructions, follow up and referral plans. medication usage, Demonstrated understanding of instructions, follow-up care, medications, Prescriptions given X 4. 11:18 Patient left the ED. hb Signatures: Dispatcher [employer] EDMS Jose Dubon RN RN sg Anderson, Corey, MD MD cha Rivera, Emily mr Yanethnoelle, Jean jb2 Maureen Ordonez, RN RN iw Gianna Correa, air pollution control engineer EKG Tat1 Lillian Blair, ZOË RN hb
--- NOTE | 2018-07-27 11:01 | EDPHYS ---
Physician Documentation [facility] Name: Goyo Correa Jr Age: 58 yrs Sex: Male : 1960 Arrival Date: 07/27/2018 Time: 08:23 Bed 18 Private MD: Abner Oconnor T ED Physician Anthony Malone HPI: 07/27 09:22 This 58 yrs old Male presents to ER via Ambulatory with complaints of Allergic kalli Reaction. 09:22 The patient presents with itching, localized swelling, redness of skin, swelling of the kalli tongue. Onset: The symptoms/episode began/occurred 2 day(s) ago. Associated signs and symptoms: The patient has no apparent associated signs or symptoms. Possible causes: The patient has no known obvious cause for the symptoms. At home the patient or guardian has treated the symptoms with nothing. Severity of symptoms: At their worst the symptoms were mild in the emergency department the symptoms are unchanged. The patient has experienced a previous episode, last year, but today's symptoms are worse. Historical: - Allergies: 08:33 Bees; iw - Home Meds: 08:33 Bactrim DS 800-160 mg Oral tab 1 tab 2 times per day [Active]; rifampin Oral 2 times iw per day [Active]; metoprolol tartrate 25 mg Oral tab 1 tab once daily [Active]; montelukast 10 mg oral tab 1 tab once daily [Active]; Clare 180 mg Oral tab 1 tab once daily [Active]; - PMHx: 08:33 Hypertension; iw - PSHx: 08:33 left knee; iw - Immunization history:: Adult Immunizations not up to date. - Social history:: Smoking status: Patient uses tobacco products, smokes one pack cigarettes per day. - Ebola Screening: : Patient negative for fever greater than or equal to 101.5 degrees Fahrenheit, and additional compatible Ebola Virus Disease symptoms Patient denies exposure to infectious person Patient denies travel to an Ebola-affected area in the 21 days before illness onset No symptoms or risks identified at this time. - Family history:: not pertinent. ROS: 09:22 Constitutional: Negative for fever, chills, and weight loss, Eyes: Negative for injury, kalli pain, redness, and discharge, Neck: Negative for injury, pain, and swelling, Cardiovascular: Negative for chest pain, palpitations, and edema, Respiratory: Negative for shortness of breath, cough, wheezing, and pleuritic chest pain, Abdomen/GI: Negative for abdominal pain, nausea, vomiting, diarrhea, and constipation, Back: Negative for injury and pain, : Negative for injury, bleeding, discharge, and swelling, MS/Extremity: Negative for injury and deformity, Skin: Negative for injury, rash, and discoloration, Neuro: Negative for headache, weakness, numbness, tingling, and seizure. 09:22 ENT: Positive for difficulty swallowing, of the tongue. Exam: :22 Constitutional: This is a well developed, well nourished patient who is awake, alert, kalli and in no acute distress. Head/Face: Normocephalic, atraumatic. Eyes: Pupils equal round and reactive to light, extra-ocular motions intact. Lids and lashes normal. Conjunctiva and sclera are non-icteric and not injected. Cornea within normal limits. Periorbital areas with no swelling, redness, or edema. Neck: Trachea midline, no thyromegaly or masses palpated, and no cervical lymphadenopathy. Supple, full range of motion without nuchal rigidity, or vertebral point tenderness. No Meningismus. Chest/axilla: Normal chest wall appearance and motion. Nontender with no deformity. No lesions are appreciated. Cardiovascular: Regular rate and rhythm with a normal S1 and S2. No gallops, murmurs, or rubs. Normal PMI, no JVD. No pulse deficits. Respiratory: Lungs have equal breath sounds bilaterally, clear to auscultation and percussion. No rales, rhonchi or wheezes noted. No increased work of breathing, no retractions or nasal flaring. Abdomen/GI: Soft, non-tender, with normal bowel sounds. No distension or tympany. No guarding or rebound. No evidence of tenderness throughout. Back: No spinal tenderness. No costovertebral tenderness. Full range of motion. Male : Normal genitalia with no discharge or lesions. Skin: Warm, dry with normal turgor. Normal color with no rashes, no lesions, and no evidence of cellulitis. MS/ Extremity: Pulses equal, no cyanosis. Neurovascular intact. Full, normal range of motion. Neuro: Awake and alert, GCS 15, oriented to person, place, time, and situation. Cranial nerves II-XII grossly intact. Motor strength 5/5 in all extremities. Sensory grossly intact. Cerebellar exam normal. Normal gait. Psych: Awake, alert, with orientation to person, place and time. Behavior, mood, and affect are within normal limits. 09:22 ENT: Mouth: Oral mucosa: normal, Gums: normal with healthy appearance, Tongue: is swollen, abscess, is not appreciated, drooling, is not appreciated. Vital Signs: 08:33 BP 151 / 77; Pulse 64; Resp 16; Temp 98.3(TE); Pulse Ox 100% on R/A; Weight 95.25 kg; iw Height 5 ft. 9 in. (175.26 cm); Pain 8/10; 10:15 BP 158 / 76; Pulse 66; Resp 17; Pulse Ox 100% on R/A; Pain 8/10; sg 08:33 Body Mass Index 31.01 (95.25 kg, 175.26 cm) iw MDM: 09:05 Patient medically screened. [facility] 09:22 Data reviewed: vital signs, nurses notes, lab test result(s), EKG, radiologic studies, kalli plain films. 07/27 09:22 Order name: Basic Metabolic Panel; Complete Time: 10:58 [facility] 07/27 09:22 Order name: CBC with Diff; Complete Time: 10:58 [facility] 07/27 09:22 Order name: LFT's; Complete Time: 10:58 [facility] 07/27 09:22 Order name: Magnesium; Complete Time: 10:58 [facility] 07/27 09:22 Order name: NT PRO-BNP; Complete Time: 10:58 [facility] 07/27 09:22 Order name: PT-INR; Complete Time: 10:58 [facility] 07/27 09:22 Order name: Troponin (emerg Dept Use Only); Complete Time: 10:58 [facility] 07/27 09:22 Order name: XRAY Chest (1 view) [facility] 07/27 11:01 Order name: Urine Dipstick--Ancillary (enter results) 07/27 09:22 Order name: EKG; Complete Time: 09:23 [facility] 07/27 09:22 Order name: Cardiac monitoring; Complete Time: 10:16 [facility] 07/27 09:22 Order name: EKG - Nurse/Tech; Complete Time: 10:16 [facility] 07/27 09:22 Order name: IV Saline Lock; Complete Time: 10:16 [facility] 07/27 09:22 Order name: Labs collected and sent; Complete Time: 10:16 [facility] 07/27 09:22 Order name: O2 Per Protocol; Complete Time: 10:16 [facility] 07/27 09:22 Order name: O2 Sat Monitoring; Complete Time: 10:16 [facility] 07/27 09:22 Order name: Urine Dipstick-Ancillary (obtain specimen); Complete Time: 11:17 [facility] Administered Medications: 10:15 Drug: NS 0.9% 1000 ml Route: IV; Rate: 1 bolus; Site: left antecubital; hb 11:17 Follow up: Response: No change in condition; IV Status: Completed infusion hb 10:15 Drug: Pepcid 40 mg Route: IVP; Site: left antecubital; hb 10:33 Follow up: Response: No adverse reaction hb 10:15 Drug: SOLU-Medrol 125 mg Route: IVP; Site: left antecubital; hb 10:33 Follow up: Response: No adverse reaction hb 10:15 Drug: predniSONE 60 mg Route: PO; hb 10:33 Follow up: Response: No adverse reaction hb 10:15 Drug: Benadryl 50 mg Route: IVP; Site: left antecubital; hb 10:45 Follow up: Response: No adverse reaction hb Disposition: 07/27/18 11:00 Discharged to Home. Impression: Angioneurotic edema, Elevated white blood cell count. - Condition is Stable. - Discharge Instructions: Allergies, Adult, Angioedema, Angioedema, [id number]. - Prescriptions for Benadryl 25 mg Oral Capsule - take 1 capsule by ORAL route every 6 hours As needed; 30 tablet. Pepcid 20 mg Oral Tablet - take 1 tablet by ORAL route every 12 hours for 10 days; 20 tablet. Prednisone 20 mg Oral Tablet - take 2 tablet by ORAL route once daily for 5 days; 10 tablet. EpiPen 0.3 mg Injection auto- injector - inject 1 pen by INTRAMUSCULAR route one time Inject into the outer portion of the thigh, through clothing if necessary. Indicated in the emergency treatment of allergic reactions; 1 Container. - Medication Reconciliation Form, Thank You Letter, Antibiotic Education, Prescription Opioid Use form. - Follow up: Abner Oconnor; When: 2 - 3 days; Reason: Recheck today's complaints, Continuance of care, Re-evaluation by your physician. - Problem is new. - Symptoms have improved. Signatures: Dispatcher [employer] EDMS Anthony Malone MD MD cha Williams, Irene, RN RN Lillian Pradhan, RN RN hb Corrections: (The following items were deleted from the chart) 11:18 11:00 07/27/2018 11:00 Discharged to Home. Impression: Angioneurotic edema; Elevated hb white blood cell count. Condition is Stable. Discharge Instructions: Allergies, Adult, Angioedema, Angioedema, [id number]. Prescriptions for Benadryl 25 mg Oral Capsule - take 1 capsule by ORAL route every 6 hours As needed; 30 tablet, Pepcid 20 mg Oral Tablet - take 1 tablet by ORAL route every 12 hours for 10 days; 20 tablet, Prednisone 20 mg Oral Tablet - take 2 tablet by ORAL route once daily for 5 days; 10 tablet, EpiPen 0.3 mg Injection auto-injector - inject 1 pen by INTRAMUSCULAR route one time Inject into the outer portion of the thigh, through clothing if necessary. Indicated in the emergency treatment of allergic reactions; 1 Container. and Forms are Medication Reconciliation Form, Thank You Letter, Antibiotic Education, Prescription Opioid Use. Follow up: Abner Oconnor; When: 2 - 3 days; Reason: Recheck today's complaints, Continuance of care, Re-evaluation by your physician. Problem is new. Symptoms have improved. kalli
[2018-07-27 11:31] LABS: Urine Blood NEGATIVE (NEG); Urine Glucose NEGATIVE (NEG); Urine Protein NEGATIVE (NEG); Urine Specific Gravity 1.015 (1.005-1.030)
--- NOTE | 2018-07-27 11:45 | EKG ---
Test Date: 2018-07-27 Test Time: 09:39:30 Tourist Guide: BLANCA MEASUREMENT RESULTS: Intervals: Rate: 59 OR: 140 QRSD: 98 QT: 462 QTc: 457 [place]: P: 60 OR: 140 QRS: 33 T: 54 INTERPRETIVE STATEMENTS: Sinus bradycardia Otherwise normal ECG Compared to ECG 01/20/2018 16:38:18 T-wave abnormality no longer present Electronically Signed On 07-27-18 11:44:15 ANALYTICS LEADER by Billy Jett
--- NOTE | 2018-07-27 13:14 | RAD REPORT ---
EXAM DESCRIPTION: Peter Single View07/27/2018 11:09 am CLINICAL HISTORY: Cough COMPARISON: none FINDINGS: A 6 millimeter nodular opacity overlies the left lung base. Right lung appears clear. Hear t is normal size IMPRESSION: 6 millimeter nodular opacity overlying the left lung base may represent a nipple shadow or pulmonary nodule. Follow-up chest film in 6 months is recommended for re-evaluation
== END 2018-07-27 11:18 | disposition home or self-care (01) ==
LOC: ER 08:18
DX: T78.3XXA Angioneurotic edema, initial encounter (principal); D72.829 Elevated white blood cell count, unspecified; I10 Essential (primary) hypertension; F17.210 Nicotine dependence, cigarettes, uncomplicated; Z91.030 Bee allergy status
CPT/HCPCS: 36415; 71045; 80048; 80076; 81003; 83735; 83880; 84484; 85025; 85610; 93005; 96361; 96374; 96375; 99284; J2930; J7030; J7512

== ENCOUNTER 2018-10-31 21:23 | Emergency (ER) | payer BC ==
[2018-10-31] MEDS ORDERED: NA CHLORIDE 0.9% 1,000 ML ONE (21:56)
[2018-10-31] MEDS ORDERED: METHYLPREDNISOLONE 125 MG INJ ONE (21:56)
[2018-10-31] MEDS ORDERED: DIPHENHYDRAMINE 50 MG/ML VIAL ONE (21:56)
[2018-10-31] MEDS ORDERED: FAMOTIDINE 20 MG/2 ML VIAL IV ONE (21:57)
[2018-10-31] MEDS ORDERED: predniSONE 20 MG TAB ONE (22:09)
[2018-10-31 22:18] LABS: Basophils % 0.3 % (0-1.3); Eosinophils % 1.5 % (0-4.4); Hematocrit 41.9 % (39.6-49.0); MPV 8.5 fL (7.6-11.3); Monocytes % 9.9 % (3.3-12.3); RBC Red Blood Cell Count 4.69 M/uL (4.33-5.43)
[2018-10-31 22:38] LABS: ALT/SGPT 20 U/L (12-78); AST/SGOT 11 U/L (15-37); Albumin 3.5 g/dL (3.4-5.0); Alkaline Phosphatase 110 U/L (45-117); BUN Blood Urea Nitrogen 15 mg/dL (7-18); Bicarbonate 25 mmol/L (21-32); Bilirubin Total 0.2 mg/dL (0.2-1.0); Glucose Level 119 mg/dL (74-106); Potassium 3.8 mmol/L (3.5-5.1); Protein, Total 7.7 g/dL (6.4-8.2); Sodium Level 141 mmol/L (136-145)
--- NOTE | 2018-10-31 22:54 | EDPHYS ---
Physician Documentation [facility] Name: Goyo Correa Jr Age: 58 yrs Sex: Male : 1960 Arrival Date: 10/31/2018 Time: 21:26 Bed 6 Private MD: Abner Oconnor T ED Physician Anthony Malone HPI: 10/31 22:00 This 58 yrs old Male presents to ER via Unassigned with complaints of Allergic kalli Reaction. 22:00 The patient presents with diffuse swelling, rash, redness of skin, swelling of the kalli lips. Onset: The symptoms/episode began/occurred just prior to arrival. Associated signs and symptoms: The patient has no apparent associated signs or symptoms. Possible causes: zithromax. At home the patient or guardian has treated the symptoms with nothing. The patient has not experienced similar symptoms in the past. Historical: - Allergies: 22:08 Bees; lp1 22:08 Cefuroxime; lp1 - Home Meds: 22:08 metoprolol tartrate 25 mg Oral tab 1 tab once daily [Active]; montelukast 10 mg Oral lp1 tab 1 tab once daily [Active]; - PMHx: 22:08 Hypertension; lp1 - PSHx: 22:08 Knee surgery; lp1 - Immunization history:: Adult Immunizations up to date. - Family history:: not pertinent. - Social history:: Smoking status: Patient/guardian denies using tobacco. - Ebola Screening: : No symptoms or risks identified at this time. ROS: 22:00 Constitutional: Negative for fever, chills, and weight loss, Eyes: Negative for injury, kalli pain, redness, and discharge, Neck: Negative for injury, pain, and swelling, Cardiovascular: Negative for chest pain, palpitations, and edema, Respiratory: Negative for shortness of breath, cough, wheezing, and pleuritic chest pain, Abdomen/GI: Negative for abdominal pain, nausea, vomiting, diarrhea, and constipation, Back: Negative for injury and pain, : Negative for injury, bleeding, discharge, and swelling, MS/Extremity: Negative for injury and deformity, Neuro: Negative for headache, weakness, numbness, tingling, and seizure. 22:00 ENT: Positive for lip swelling. 22:00 Skin: Positive for rash. Exam: 22:00 Constitutional: This is a well developed, well nourished patient who is awake, alert, kalli and in no acute distress. Head/Face: Normocephalic, atraumatic. Eyes: Pupils equal round and reactive to light, extra-ocular motions intact. Lids and lashes normal. Conjunctiva and sclera are non-icteric and not injected. Cornea within normal limits. Periorbital areas with no swelling, redness, or edema. Neck: Trachea midline, no thyromegaly or masses palpated, and no cervical lymphadenopathy. Supple, full range of motion without nuchal rigidity, or vertebral point tenderness. No Meningismus. Chest/axilla: Normal chest wall appearance and motion. Nontender with no deformity. No lesions are appreciated. Cardiovascular: Regular rate and rhythm with a normal S1 and S2. No gallops, murmurs, or rubs. Normal PMI, no JVD. No pulse deficits. Respiratory: Lungs have equal breath sounds bilaterally, clear to auscultation and percussion. No rales, rhonchi or wheezes noted. No increased work of breathing, no retractions or nasal flaring. Abdomen/GI: Soft, non-tender, with normal bowel sounds. No distension or tympany. No guarding or rebound. No evidence of tenderness throughout. Back: No spinal tenderness. No costovertebral tenderness. Full range of motion. Skin: Warm, dry with normal turgor. Normal color with no rashes, no lesions, and no evidence of cellulitis. MS/ Extremity: Pulses equal, no cyanosis. Neurovascular intact. Full, normal range of motion. Neuro: Awake and alert, GCS 15, oriented to person, place, time, and situation. Cranial nerves II-XII grossly intact. Motor strength 5/5 in all extremities. Sensory grossly intact. Cerebellar exam normal. Normal gait. Psych: Awake, alert, with orientation to person, place and time. Behavior, mood, and affect are within normal limits. 22:00 ENT: Mouth: Lips: moist, Oral mucosa: normal, Gums: normal with healthy appearance, Tongue: is normal, abscess, is not appreciated. Vital Signs: 21:45 BP 147 / 75; Pulse 81; Resp 20; Temp 97.9(O); Pulse Ox 99% on R/A; Weight 89.36 kg; lp1 Height 5 ft. 9 in. (175.26 cm); Pain 0/10; 23:00 BP 117 / 76; Pulse 76; Resp 16; Pulse Ox 97% on R/A; lp1 21:45 Body Mass Index 29.09 (89.36 kg, 175.26 cm) lp1 MDM: 21:52 Patient medically screened. [facility] 22:04 Data reviewed: vital signs, nurses notes, lab test result(s). [facility] 10/31 22:00 Order name: CBC with Diff; Complete Time: 22:54 [facility] 10/31 22:00 Order name: Comprehensive Metabolic Panel; Complete Time: 22:54 [facility] Administered Medications: 21:50 Drug: NS 0.9% 1000 ml Route: IV; Rate: 1 bolus; Site: left hand; lp1 23:00 Follow up: IV Status: Completed infusion; IV Intake: 1000ml lp1 21:50 Drug: Benadryl 50 mg Route: IVP; Site: left hand; lp1 23:00 Follow up: Response: Marked relief of symptoms lp1 21:50 Drug: Pepcid 40 mg Route: IVP; Site: left hand; lp1 23:00 Follow up: Response: Marked relief of symptoms lp1 21:50 Drug: SOLU-Medrol 125 mg Route: IVP; Site: left hand; lp1 23:00 Follow up: Response: Marked relief of symptoms lp1 22:00 Drug: predniSONE 60 mg Route: PO; lp1 23:00 Follow up: Response: No adverse reaction lp1 Disposition: 10/31/18 22:54 Discharged to Home. Impression: Angioneurotic edema. - Condition is Stable. - Discharge Instructions: Allergies, Adult, Angioedema, Angioedema, [id number]. - Prescriptions for Benadryl 25 mg Oral Capsule - take 2 capsule by ORAL route every 6 hours As needed; 45 tablet. Pepcid 20 mg Oral Tablet - take 1 tablet by ORAL route every 12 hours for 10 days; 20 tablet. Prednisone 20 mg Oral Tablet - take 2 tablet by ORAL route once daily for 5 days; 10 tablet. EpiPen 0.3 mg Injection auto- injector - inject 1 pen by INTRAMUSCULAR route one time Inject into the outer portion of the thigh, through clothing if necessary. Indicated in the emergency treatment of allergic reactions; 1 Container. - Medication Reconciliation Form, Thank You Letter, Antibiotic Education, Prescription Opioid Use, Work release form form. - Follow up: Abner Oconnor; When: 1 - 2 days; Reason: Recheck today's complaints, Continuance of care, Re-evaluation by your physician. - Problem is new. - Symptoms have improved. Signatures: Dispatcher [employer] EDAnthony Campos MD MD cha Pena, Laura RN RN lp1 Corrections: (The following items were deleted from the chart) 23:55 22:54 10/31/2018 22:54 Discharged to Home. Impression: Angioneurotic edema. Condition lp1 is Stable. Discharge Instructions: Allergies, Adult, Angioedema, Angioedema, [id number]. Prescriptions for Benadryl 25 mg Oral Capsule - take 2 capsule by ORAL route every 6 hours As needed; 45 tablet, Pepcid 20 mg Oral Tablet - take 1 tablet by ORAL route every 12 hours for 10 days; 20 tablet, Prednisone 20 mg Oral Tablet - take 2 tablet by ORAL route once daily for 5 days; 10 tablet, EpiPen 0.3 mg Injection auto-injector - inject 1 pen by INTRAMUSCULAR route one time Inject into the outer portion of the thigh, through clothing if necessary. Indicated in the emergency treatment of allergic reactions; 1 Container. and Forms are Medication Reconciliation Form, Thank You Letter, Antibiotic Education, Prescription Opioid Use. Follow up: Abner Oconnor; When: 1 - 2 days; Reason: Recheck today's complaints, Continuance of care, Re-evaluation by your physician. Problem is new. Symptoms have improved. kalli
--- NOTE | 2018-10-31 22:54 | ER ---
Nurse's Notes [facility] Name: Goyo Correa Jr Age: 58 yrs Sex: Male : 1960 Arrival Date: 10/31/2018 Time: 21:26 Bed 6 Private MD: Abner Oconnor T Diagnosis: Angioneurotic edema Presentation: 10/31 21:45 Presenting complaint: Patient states: Swelling to hands, lips, rash to abdomen that lp1 began BUTTON SEWER; Patient states taking first dose of Azithromycin at 1700; States some chest tightness,"feels like I can't take a deep breath". Transition of care: patient was not received from another setting of care. Onset: The symptoms/episode began/occurred just prior to arrival. Anaphylaxis evaluation, chest pain. Onset of symptoms was October 31, 2018 at 21:00. Risk Assessment: Do you want to hurt yourself or someone else? Patient reports no desire to harm self or others. Initial Sepsis Screen: Does the patient meet any 2 criteria? No. Patient's initial sepsis screen is negative. Does the patient have a suspected source of infection? No. Patient's initial sepsis screen is negative. Care prior to arrival: None. 21:45 Method Of Arrival: Wheelchair lp1 21:45 Acuity: BELLE 2 lp1 Historical: - Allergies: 22:08 Bees; lp1 22:08 Cefuroxime; lp1 - Home Meds: 22:08 metoprolol tartrate 25 mg Oral tab 1 tab once daily [Active]; montelukast 10 mg Oral lp1 tab 1 tab once daily [Active]; - PMHx: 22:08 Hypertension; lp1 - PSHx: 22:08 Knee surgery; lp1 - Immunization history:: Adult Immunizations up to date. - Family history:: not pertinent. - Social history:: Smoking status: Patient/guardian denies using tobacco. - Ebola Screening: : No symptoms or risks identified at this time. Screenin:09 Abuse screen: Denies threats or abuse. Denies injuries from another. Nutritional lp1 screening: No deficits noted. Tuberculosis screening: No symptoms or risk factors identified. Fall Risk None identified. Assessment: 22:00 General: Appears uncomfortable, Behavior is appropriate for age. Pain: Denies pain. lp1 Neuro: Level of Consciousness is awake, alert, obeys commands, Oriented to person, place, time, situation. Cardiovascular: Patient's skin is warm and dry. Respiratory: Airway is patent Trachea midline Respiratory effort is even, Respiratory pattern is regular, Breath sounds are clear bilaterally. GI: No signs and/or symptoms were reported involving the gastrointestinal system. : No signs and/or symptoms were reported regarding the genitourinary system. EENT: Throat is clear swelling noted to upper lip. Derm: Rash noted that is itchy, urticaria, on abdomen swelling to bilateral hands. Musculoskeletal: Circulation, motion, and sensation intact. 23:00 Reassessment: Patient resting, eyes closed, respirations unlabored; swelling to lip lp1 improved; Patient states relief from chest tightness at this time; States itching improved Patient denies pain at this time. Patient states feeling better. 23:30 Reassessment: Patient appears in no apparent distress at this time. rash to abdomen lp1 absent at this time Patient denies pain at this time. Patient states feeling better. Patient states symptoms have improved. Vital Signs: 21:45 BP 147 / 75; Pulse 81; Resp 20; Temp 97.9(O); Pulse Ox 99% on R/A; Weight 89.36 kg; lp1 Height 5 ft. 9 in. (175.26 cm); Pain 0/10; 23:00 BP 117 / 76; Pulse 76; Resp 16; Pulse Ox 97% on R/A; lp1 21:45 Body Mass Index 29.09 (89.36 kg, 175.26 cm) lp1 ED Course: 21:26 Patient arrived in ED. es 21:26 Abner Oconnor MD is Private Physician. es 21:52 Anthony Mlaone MD is Attending Physician. kalli 21:54 Missed attempt(s): 20 gauge Bleeding controlled, band aid applied, catheter tip intact. oe 21:54 Inserted saline lock: 22 gauge in left hand, using aseptic technique. EJ, using aseptic oe technique. Blood collected. 22:00 Saundra Hernandez, ZOË is Primary Nurse. lp1 22:00 Patient has correct armband on for positive identification. panel monitor on. Pulse lp1 ox on. NIBP on. 22:05 Triage completed. lp1 22:05 Arm band placed on left wrist. lp1 22:54 Abner Oconnor MD is Referral Physician. kalli 23:33 No provider procedures requiring assistance completed. lp1 23:52 IV discontinued, No redness/swelling at site. Pressure dressing applied. lp1 Administered Medications: 21:50 Drug: NS 0.9% 1000 ml Route: IV; Rate: 1 bolus; Site: left hand; lp1 23:00 Follow up: IV Status: Completed infusion; IV Intake: 1000ml lp1 21:50 Drug: Benadryl 50 mg Route: IVP; Site: left hand; lp1 23:00 Follow up: Response: Marked relief of symptoms lp1 21:50 Drug: Pepcid 40 mg Route: IVP; Site: left hand; lp1 23:00 Follow up: Response: Marked relief of symptoms lp1 21:50 Drug: SOLU-Medrol 125 mg Route: IVP; Site: left hand; lp1 23:00 Follow up: Response: Marked relief of symptoms lp1 22:00 Drug: predniSONE 60 mg Route: PO; lp1 23:00 Follow up: Response: No adverse reaction lp1 Intake: 23:00 IV: 1000ml; Total: 1000ml. lp1 Outcome: 22:54 Discharge ordered by . kalli 23:53 Discharged to home ambulatory, with family. lp1 23:53 Condition: good 23:53 Discharge instructions given to patient, family, Instructed on discharge instructions, follow up and referral plans. medication usage, Demonstrated understanding of instructions, follow-up care, medications, Prescriptions given X 4. 23:55 Patient left the ED. lp1 Signatures: Anthony Malone MD MD cha Salyer, Edna es Pena, Laura RN RN lp1 Ervin Coto Corrections: (The following items were deleted from the chart) 23:33 22:00 EENT: Throat is clear lp1 lp1 23:33 22:00 Derm: Rash noted that is itchy, urticaria, on abdomen lp1 lp1
[2018-11-01 00:21] VITALS: TEMP 97.9
[2018-11-01 00:22] VITALS: BP 117/76; O2SAT 97
== END 2018-10-31 23:55 | disposition home or self-care (01) ==
LOC: ER 21:23
DX: T78.3XXA Angioneurotic edema, initial encounter (principal); I10 Essential (primary) hypertension; Z88.1 Allergy status to other antibiotic agents; Z91.030 Bee allergy status
CPT/HCPCS: 36415; 80053; 85025; 96361; 96374; 96375; 99284; J2930; J7030; J7512

== ENCOUNTER 2018-11-01 16:24 | Inpatient (IN) | payer BC ==
--- NOTE | 2018-11-01 17:40 | RAD REPORT ---
EXAM DESCRIPTION: Peter Single View11/01/2018 5:30 pm CLINICAL HISTORY: Chest pain COMPARISON: June 2018 FINDINGS: The lungs appear clear of acute infiltrate. The heart is normal size. Previously describe d nodular opacity overlying the left base is not seen on this exam IMPRESSION: No acute abnormalities displayed
[2018-11-01 18:00] LABS: Absolute Lymphocytes (CBC) 1.2 K/uL (0.7-4.9); Absolute Monocytes 0.6 K/uL (0.1-1.3); Absolute Neutrophil 10.3 K/uL (1.8-8.0); Basophils % 0.2 % (0-1.3); Hematocrit 39.4 % (39.6-49.0); Lymphocytes % 10.2 % (15.3-44.8); MPV 8.3 fL (7.6-11.3); RBC Red Blood Cell Count 4.37 M/uL (4.33-5.43)
[2018-11-01] MEDS ORDERED: ASPIRIN 81 MG CHEWABLE TABLET ONE (18:16)
[2018-11-01 18:22] LABS: Protime INR 1.05
[2018-11-01 18:26] LABS: ALT/SGPT 18 U/L (12-78); AST/SGOT 12 U/L (15-37); Albumin 3.1 g/dL (3.4-5.0); Alkaline Phosphatase 97 U/L (45-117); BUN Blood Urea Nitrogen 15 mg/dL (7-18); Bicarbonate 23 mmol/L (21-32); Bilirubin Direct < 0.1 mg/dL (0-0.2); Bilirubin Total 0.2 mg/dL (0.2-1.0); Glucose Level 237 mg/dL (74-106); Magnesium 1.8 mg/dL (1.8-2.4); NT PRO-BNP 204 pg/mL (<125); Potassium 3.9 mmol/L (3.5-5.1); Protein, Total 7.1 g/dL (6.4-8.2); Sodium Level 144 mmol/L (136-145); Troponin (Emerg Dept Use Only) < 0.02 ng/mL (0.0-0.045)
--- NOTE | 2018-11-01 18:43 | EDPHYS ---
Physician Documentation [facility] Name: Goyo Correa Jr Age: 58 yrs Sex: Male : 1960 Arrival Date: 11/01/2018 Time: 16:26 Bed 5 Private MD: Abner Oconnor T ED Physician Dominic Velazquez HPI: 11/01 17:14 This 58 yrs old Male presents to ER via Ambulatory with complaints of Chest cp Pain, Shortness Of Breath, Arm Pain, High Blood Pressure. 17:15 The patient or guardian reports chest pain that is located primarily in the anterior cp chest wall, bilaterally. 17:15 Onset: 1 hour(s) ago. cp 17:15 The pain radiates to both arms, neck. Associated signs and symptoms: Pertinent cp positives: shortness of breath, Pertinent negatives: abdominal pain, cough, diaphoresis, lower extremity pain, lower extremity swelling, recent travel, syncope, vomiting. The chest pain is described as a pressure. Duration: The patient or guardian reports a single episode, that is still ongoing, but improving. The patient has been recently seen at the [facility] Emergency Department, yesterday, for unrelated complaints, Patient was seen last night with concerns for an allergic reaction to taking Zithromax. Patient was given IV steroids and took oral steroids this morning. Historical: - Allergies: 16:38 Bees; ch 16:38 Cefuroxime; ch 16:38 Zithromax; ch - PMHx: 16:38 Hypertension; ch - PSHx: 16:38 Knee surgery; ch - Immunization history:: Adult Immunizations up to date. - Ebola Screening: : Patient negative for fever greater than or equal to 101.5 degrees Fahrenheit, and additional compatible Ebola Virus Disease symptoms Patient denies exposure to infectious person Patient denies travel to an Ebola-affected area in the 21 days before illness onset No symptoms or risks identified at this time. ROS: 17:20 Constitutional: Negative for body aches, chills, fever, poor PO intake. cp 17:20 Eyes: Negative for injury, pain, redness, and discharge. cp 17:20 ENT: Negative for drainage from ear(s), ear pain, sore throat, difficulty swallowing, difficulty handling secretions. 17:20 Cardiovascular: Positive for chest pain, Negative for edema, palpitations. 17:20 Respiratory: Positive for shortness of breath, Negative for cough, wheezing. 17:20 Abdomen/GI: Negative for abdominal pain, nausea, vomiting, and diarrhea. 17:20 Back: Negative for pain at rest, pain with movement, radiated pain. 17:20 : Negative for urinary symptoms. 17:20 Skin: Negative for cellulitis, rash. 17:20 Neuro: Negative for altered mental status, headache, weakness. 17:20 All other systems are negative. Exam: 16:55 ECG was reviewed by the Attending Physician. cp 17:25 Constitutional: The patient appears in no acute distress, alert, awake, comfortable, cp non-diaphoretic, non-toxic, well developed, well nourished. 17:25 Head/Face: Normocephalic, atraumatic. cp 17:25 Eyes: Periorbital structures: appear normal, Conjunctiva: normal, no exudate, no injection, Sclera: no appreciated abnormality, Lids and lashes: appear normal, bilaterally. 17:25 ENT: External ear(s): are unremarkable, Ear canal(s): are normal, clear, TM's: bulging, is not appreciated, bilaterally, dullness, bilaterally, erythema, is not appreciated, bilaterally, Nose: is normal, Mouth: Lips: moist, Oral mucosa: pink and intact, moist, Posterior pharynx: is normal, airway is patent, no erythema, no exudate, Voice: is normal. 17:25 Neck: ROM/movement: is normal, is supple, without pain, no range of motions limitations, no meningismus, no nuchal rigidity. 17:25 Chest/axilla: Inspection: normal, Palpation: is normal, no crepitus, no tenderness. 17:25 Cardiovascular: Rate: normal, Rhythm: regular, Pulses: Pulses are 2+ in right radial artery and left radial artery. Edema: is not appreciated, JVD: is not appreciated. 17:25 Respiratory: the patient does not display signs of respiratory distress, Respirations: normal, no use of accessory muscles, no retractions, no splinting, no tachypnea, labored breathing, is not present, Breath sounds: are clear throughout, no decreased breath sounds, no stridor, no wheezing. 17:25 Abdomen/GI: Inspection: abdomen appears normal, Palpation: abdomen is soft and non-tender, in all quadrants. 17:25 Back: pain, is absent, ROM is normal. 17:25 Skin: cellulitis, is not appreciated, no rash present. 17:25 Neuro: Orientation: to person, place \T\ time. Mentation: is normal, Cerebellar function: is grossly normal, Motor: moves all fours, strength is normal, Sensation: is normal. Vital Signs: 16:38 BP 134 / 77; Pulse 93; Resp 16; Temp 98.5; Pulse Ox 98% on R/A; Weight 89.36 kg; Height ch 5 ft. 9 in. (175.26 cm); Pain 7/10; 19:55 BP 130 / 70; Pulse 88; Resp 18; Pulse Ox 99% on R/A; ea 20:50 Pulse 77; Resp 17; Pulse Ox 97% on R/A; ea 21:57 BP 128 / 60; Pulse 70; Resp 18; Pulse Ox 99% ; ea 16:38 Body Mass Index 29.09 (89.36 kg, 175.26 cm) MDM: 17:09 Patient medically screened. cp 18:00 Differential diagnosis: abnormal EKG, acute myocardial infarction, acute pericarditis, cp anxiety, chest wall pain, pulmonary embolus, stable angina, unstable angina. 18:39 The patient was given aspirin in the Emergency Department. Data reviewed: vital signs, cp nurses notes, lab test result(s), EKG, radiologic studies, plain films. Test interpretation: by ED physician or midlevel provider: ECG, plain radiologic studies. Physician consultation: Douglas Montalvo DO was called at 18:35, was contacted at 18:35, regarding admission, to the telemetry unit. patient's condition. 11/01 17:14 Order name: Basic Metabolic Panel; Complete Time: 18:30 cp 11/01 18:30 Interpretation: Normal except: CL 112; GLUC 237; GFR 68. cp 11/01 17:14 Order name: CBC with Diff; Complete Time: 18:16 cp 11/01 18:16 Interpretation: Normal except: WBC 12.2; HGB 13.1; HCT 39.4; YOLY% 84.6; LYM% 10.2; NEUT cp A 10.3. 11/01 17:14 Order name: LFT's; Complete Time: 18:30 cp 11/01 18:31 Interpretation: Normal except: AST 12; ALB 3.1; GLOB 4.0; A/G 0.8. cp 03 17:14 Order name: Magnesium; Complete Time: 18:30 cp 11/01 17:14 Order name: NT PRO-BNP; Complete Time: 18:30 cp 11/01 17:14 Order name: PT-INR; Complete Time: 18:30 cp 11/01 16:54 Order name: EKG; Complete Time: 16:55 ss 11/01 16:54 Order name: EKG - Nurse/Tech; Complete Time: 16:54 ss 11/01 17:14 Order name: Troponin (emerg Dept Use Only); Complete Time: 18:30 cp 11/01 17:14 Order name: XRAY Chest (1 view); Complete Time: 18:16 cp 11/01 17:14 Order name: Cardiac monitoring; Complete Time: 18:22 cp 11/01 17:14 Order name: IV Saline Lock; Complete Time: 17:50 cp 11/01 17:14 Order name: Labs collected and sent; Complete Time: 17:50 cp 11/01 17:14 Order name: O2 Per Protocol; Complete Time: 18:00 cp 11/01 17:14 Order name: O2 Sat Monitoring; Complete Time: 18:00 cp EC:55 Rate is 94 beats/min. Rhythm is regular. GA interval is normal. QRS interval is normal. cp QT interval is normal. Q waves are Present in leads II, aVF. Interpreted by me. Reviewed by me. Administered Medications: 18:10 Drug: Aspirin Chewable Tablet 324 mg Route: PO; sg 18:47 Follow up: Response: No adverse reaction sg Disposition: 11/01/18 18:42 Hospitalization ordered by Douglas Montalvo for Observation. Preliminary diagnosis is Chest pain, unspecified. - Bed requested for Telemetry/MedSurg (observation). - Status is Observation. ea - Condition is Stable. - Problem is new. - Symptoms have improved. UTI on Admission? No Addendum: 11/07/2018 07:16 Co-signature as Attending Physician, Dominic Velazquez MD. r n Signatures: Dispatcher [employer] EDIvon Azul RN RN ch Gay, Steven RN Dominic Brian MD MD rn Smirch, Shelby, RN RN ss Page, Corey, PA PA cp Blake, Marilee, RN RN jas Jose Luis Rodriguezdinorah mw2 Corrections: (The following items were deleted from the chart) 11/01 21:36 18:42 Hospitalization Ordered by Douglas Montalvo DO for Observation. Preliminary mw2 diagnosis is Chest pain, unspecified. Bed requested for Telemetry/MedSurg (observation). Status is Observation. Condition is Stable. Problem is new. Symptoms have improved. UTI on Admission? No. cp 22:15 21:36 11/01/2018 18:42 Hospitalization Ordered by Douglas Montalvo DO for Observation. jas Preliminary diagnosis is Chest pain, unspecified. Bed requested for Telemetry/MedSurg (observation). Status is Observation. Condition is Stable. Problem is new. Symptoms have improved. UTI on Admission? No. mw2
--- NOTE | 2018-11-01 18:43 | ER ---
Nurse's Notes [facility] Name: Goyo Correa Jr Age: 58 yrs Sex: Male : 1960 Arrival Date: 11/01/2018 Time: 16:26 Bed 5 Private MD: Abner Oconnor T Diagnosis: Chest pain, unspecified Presentation: 11/01 16:37 Presenting complaint: Patient states: I think I am having a heart attack. chest pian, L ch arm pain, SOB. i was seen here last night for an allergic reaction. Transition of care: patient was not received from another setting of care. Onset of symptoms was November 01, 2018 at 15:50. Risk Assessment: Do you want to hurt yourself or someone else? Patient reports no desire to harm self or others. Initial Sepsis Screen: Does the patient meet any 2 criteria? No. Patient's initial sepsis screen is negative. Does the patient have a suspected source of infection? No. Patient's initial sepsis screen is negative. Care prior to arrival: None. 16:37 Method Of Arrival: Ambulatory 16:37 Acuity: BELLE 3 ch Historical: - Allergies: 16:38 Bees; ch 16:38 Cefuroxime; ch 16:38 Zithromax; ch - PMHx: 16:38 Hypertension; ch - PSHx: 16:38 Knee surgery; ch - Immunization history:: Adult Immunizations up to date. - Ebola Screening: : Patient negative for fever greater than or equal to 101.5 degrees Fahrenheit, and additional compatible Ebola Virus Disease symptoms Patient denies exposure to infectious person Patient denies travel to an Ebola-affected area in the 21 days before illness onset No symptoms or risks identified at this time. Screenin:15 Abuse screen: Denies threats or abuse. Denies injuries from another. Nutritional sg screening: No deficits noted. Tuberculosis screening: No symptoms or risk factors identified. Never had TB. Fall Risk None identified. Assessment: 17:15 General: Appears in no apparent distress. comfortable, well groomed, well developed, sg well nourished, Behavior is calm, cooperative, appropriate for age. Pain: Complains of pain in chest and left arm Pain does not radiate. Quality of pain is described as aching, sharp. Neuro: Level of Consciousness is awake, alert, obeys commands, Oriented to person, place, time, Speech is normal, Facial symmetry appears normal, Pupils are PERRLA. Cardiovascular: Capillary refill is brisk in bilateral fingers Patient's skin is warm and dry. Chest pain is described as mild. Respiratory: Airway is patent Respiratory effort is even, unlabored, Respiratory pattern is regular, symmetrical. 19:50 General: Appears in no apparent distress. comfortable, Behavior is calm, cooperative, ea appropriate for age. Pain: Denies pain. Neuro: Level of Consciousness is awake, alert, obeys commands, Oriented to person, place, time. Cardiovascular: No deficits noted. Respiratory: Airway is patent Respiratory effort is even, unlabored, Respiratory pattern is regular, symmetrical. Derm: Skin is pink, warm \T\ dry. 20:50 Reassessment: Patient and/or family updated on plan of care and expected duration. Pain ea level reassessed. Patient is alert, oriented x 3, equal unlabored respirations, skin warm/dry/pink. 21:42 Reassessment: Patient and/or family updated on plan of care and expected duration. Pain ea level reassessed. Patient is alert, oriented x 3, equal unlabored respirations, skin warm/dry/pink. 21:56 Reassessment: Report called to receiving nurse on fourth floor. ea Vital Signs: 16:38 BP 134 / 77; Pulse 93; Resp 16; Temp 98.5; Pulse Ox 98% on R/A; Weight 89.36 kg; Height ch 5 ft. 9 in. (175.26 cm); Pain 7/10; 19:55 BP 130 / 70; Pulse 88; Resp 18; Pulse Ox 99% on R/A; ea 20:50 Pulse 77; Resp 17; Pulse Ox 97% on R/A; ea 21:57 BP 128 / 60; Pulse 70; Resp 18; Pulse Ox 99% ; ea 16:38 Body Mass Index 29.09 (89.36 kg, 175.26 cm) ED Course: 16:26 Patient arrived in ED. mr 16:27 Abner Oconnor MD is Private Physician. mr 16:37 Triage completed. 16:38 Arm band placed on left wrist. Patient placed in an exam room, on a stretcher. EKG ch completed in triage. Results shown to MD. 16:59 EKG done, by helpdesk technician. reviewed by Dominic Velazquez MD. sm3 17:09 Page, Anthony, PA is PHCP. cp 17:09 Dominic Velazquez MD is Attending Physician. cp 17:36 XRAY Chest (1 view) In Process Unspecified. EDMS 17:50 Initial lab(s) drawn, by me, sent to lab. Inserted saline lock: 20 gauge in left wrist, em1 using aseptic technique. Blood collected. 17:59 Jose Dubon, RN is Primary Nurse. sg 18:40 Douglas Montalvo DO is Hospitalizing Provider. cp 19:50 Patient has correct armband on for positive identification. Bed in low position. Call ea light in reach. Side rails up X2. cafeteria monitor on. Pulse ox on. NIBP on. 21:47 No provider procedures requiring assistance completed. Patient admitted, IV remains in ea place. Patient maintains SpO2 saturation greater than 95% on room air. Administered Medications: 18:10 Drug: Aspirin Chewable Tablet 324 mg Route: PO; sg 18:47 Follow up: Response: No adverse reaction sg Outcome: 18:42 Decision to Hospitalize by Provider. cp 21:47 Instructed on the need for admit. ea 21:58 Admitted to Med/surg accompanied by [facility], room 413, with chart, Report called to ea Receiving nurse on fourth floor. 21:58 Condition: stable 22:15 Patient left the ED. ea Signatures: Dispatcher [employer] EDMS Ivon Martin, RN RN Jose Dubon, RN RN sandeep Wigginsa Emily Phipps, Marcio em1 Anthony Zamudio PA PA cp Antunez, Elena, ZOË RN Angélica Thrasher sm3
--- NOTE | 2018-11-01 21:40 | P.HP ---
Certification for Inpatient Patient admitted to: Observation With expected LOS: <2 Midnights Practitioner: I am a practitioner with admitting privileges, knowledge of patient current condition, hospital course, and medical plan of care. Services: Services provided to patient in accordance with Admission requirements found in Title 42 Section 412.3 of the Code of Federal Regulations Patient History Date of Service: 11/01/18 Reason for admission: chest pain History of Present Illness: Mr Rutherford is a 58 years old male with history of HTN, tobacco abuse, who came to ED last night due to an allergic reaction believed to be due to Azithromycin. He came to ED today, complaining of chest pain. He describe a pressure like substernal chest pain, lasting for 30 minutes, associated with SOB. He denied nausea, vomiting, or diaphoretic episode. The pain radiated to both arms and neck. He has had this kind of pain before, but last only for 5 minutes. At my encounter he was chest pain free in non-distress. Initial trop I negative. EKG shows Q waves on inferior leads, but no acute ST-T abnormalities. Allergies Bees Allergy (Uncoded 01/20/18 18:44) Unknown Home medications list reviewed: Yes - Past Medical/Surgical History -: HTN -: tobacco abuse -: Knee surgery - Family History Family History: Reviewed- Non-Contributory - Social History Smoking Status: Current every day smoker Counseled patient to stop smoking for: less than 10 minutes Smoking therapy provided: Yes Patient receptive to therapy: No CD- Drugs: No Place of Residence: Home Review of Systems 10-point ROS is otherwise unremarkable Physical Examination - Physical Exam General: Alert, In no apparent distress HEENT: Atraumatic, PERRLA, Mucous membr. moist/pink, EOMI, Sclerae nonicteric Neck: Supple, 2+ carotid pulse no bruit, No LAD, Without JVD or thyroid abnormality Respiratory: Clear to auscultation bilaterally, Normal air movement Cardiovascular: Regular rate/rhythm, Normal S1 S2 Gastrointestinal: Normal bowel sounds, No tenderness Musculoskeletal: No tenderness Integumentary: No rashes Neurological: Normal gait, Normal speech, Normal strength at 5/5 x4 extr, Normal tone, Normal affect Lymphatics: No axilla or inguinal lymphadenopathy - Studies Laboratory Data (last 24 hrs) 11/01/18 17:45: PT 12.4, INR 1.05 11/01/18 17:45: WBC 12.2 H D, Hgb 13.1 L, Hct 39.4 L, Plt Count 294 11/01/18 17:45: Sodium 144, Potassium 3.9, BUN 15, Creatinine 1.11, Glucose 237 H, Magnesium 1.8, Total Bilirubin 0.2, AST 12 L, ALT 18, Alkaline Phosphatase 97 Assessment and Plan - Problems (Diagnosis) (1) Chest pain Current Visit: Yes Status: Acute Qualifiers: Chest pain type: precordial pain Qualified Code(s): R07.2 - Precordial pain (2) HTN (hypertension) Current Visit: Yes Status: Acute Qualifiers: Hypertension type: essential hypertension Qualified Code(s): I10 - Essential (primary) hypertension (3) Tobacco abuse Current Visit: Yes Status: Acute - Plan Will admit the patient due to chest pain. Will order serial cardica enzymes, EKG , ECHO in AM, cardiology consult. - Advance Directives Does patient have a Living Will: No Does patient have a Durable POA for Healthcare: No - Code Status/Comfort Care Code Status Assessed: Yes Code Status: Full Code
[2018-11-01] MEDS ORDERED: NITROGLYCERIN 0.4 MG/TAB SL PRN (22:55)
[2018-11-02 01:42] VITALS: BMI 30.9
--- NOTE | 2018-11-02 06:04 | EKG ---
Test Date: 2018-11-01 Test Time: 16:43:12 Tree Tapping Laborer: WAYNE MEASUREMENT RESULTS: Intervals: Rate: 94 DC: 156 QRSD: 98 QT: 378 QTc: 472 Tell: P: 65 DC: 156 QRS: 65 T: 11 INTERPRETIVE STATEMENTS: Normal sinus rhythm Inferior infarct, age undetermined Abnormal ECG Compared to ECG 07/27/2018 09:39:30 Myocardial infarct finding now present Sinus bradycardia no longer present Electronically Signed On 11-02-18 06:04:12 CONTINUITY PERSON by Jose Raul Wu
[2018-11-02] MEDS: ASPIRIN EC 81 MG TAB PO SCH (08:49)
[2018-11-02] MEDS: CETIRIZINE HCL 5 MG TABLET PO SCH (08:49)
[2018-11-02] MEDS: FAMOTIDINE 20 MG TAB PO SCH ×2 (08:49→21:55)
[2018-11-02] MEDS: METOPROLOL TAR 25 MG TAB PO SCH (08:59)
[2018-11-02] MEDS ORDERED: ENOXAPARIN 100 MG/ML SYR SQ SCH (09:00)
[2018-11-02] MEDS ORDERED: ENOXAPARIN 40 MG/0.4 ML SQ SCH (09:00)
[2018-11-02] MEDS ORDERED: HEPA 1000U/500MLS 2,000 UNIT/1,000 ML BAG IV ONE (10:16)
--- NOTE | 2018-11-02 11:47 | ECHO ---
HEIGHT: 5 ft 9 in WEIGHT: 209 lb 3.2 oz DATE OF STUDY: 11/02/[address]: Isac Jin MD 2-DIMENSIONAL: YES M.MODE: YES DOPPLER: YES COLOR FLOW: YES TDS: NO PORTABLE: NO DEFINITY: NO BUBBLE STUDY: NO DIAGNOSIS: CHEST PAIN CARDIAC HISTORY: CATHERIZATION: NO SURGERY: NO PROSTHETIC VALVE: NO PACEMAKER: NO MEASUREMENTS (cm) DIASTOLIC (NORMALS) SYSTOLIC (NORMALS) IVSd 0.9 (0.6-1.2) LA Diam 3.6 (1.9-4.0) LVEF 55-59% LVIDd 4.7 (3.5-5.7) LVIDs 3.5 (2.0-3.5) %FS 25% LVPWd 1.1 (0.6-1.2) Ao Diam 2.7 (2.0-3.7) 2 DIMENSIONAL ASSESSMENT: RIGHT ATRIUM: NORMAL LEFT ATRIUM: NORMAL RIGHT VENTRICLE: NORMAL LEFT VENTRICLE: NORMAL TRICUSPID VALVE: NORMAL MITRAL VALVE: NORMAL PULMONIC VALVE: NORMAL AORTIC VALVE: NORMAL PERICARDIAL EFFUSION: NONE AORTIC ROOT: NORMAL LEFT VENTRICULAR WALL MOTION: NORMAL. DOPPLER/COLOR FLOW: MILD MITRAL AND TRICUSPID REGURGITATION. NORMAL RIGHT VENTRICULAR SYSTOLIC PRESSURE. COMMENTS: NORMAL 2D ECHO WITH DOPPLER. MILD MITRAL AND TRICUSPID REGURGITATION. TECHNOLOGIST: KYLE UGALDE
[2018-11-02] MEDS ORDERED: LIDOCAINE 1% MPF 5 ML VIAL ONE (12:14)
[2018-11-02] MEDS ORDERED: MIDAZOLAM HCL 2 MG/2 ML INJ ONE (12:33)
[2018-11-02] MEDS ORDERED: HEPARIN 5000 UNIT/ML 1 ML VIAL ONE (12:33)
[2018-11-02] MEDS ORDERED: FENTANYL CITR 100 MCG/2 ML ONE (12:33)
[2018-11-02] MEDS ORDERED: NA CHLORIDE 0.9% 500 ML ONE (12:33)
[2018-11-02] MEDS ORDERED: NA CHLORIDE 0.9% 0 ML ONE (12:34)
[2018-11-02] MEDS ORDERED: ATROPINE SULF 1 MG/10 ML SYR IV ONE (12:34)
[2018-11-02] MEDS ORDERED: NICARDIPINE HCL 25 MG/10 ML IV ONE (12:34)
[2018-11-02] MEDS ORDERED: NITROGLYCERIN 100 MCG/ML SYR (for cath lab use only) IV ONE (12:34)
[2018-11-02] MEDS ORDERED: NITROGLYCERIN/D5W 25 MG/250 ML BTL IV ONE (12:34)
[2018-11-02] MEDS ORDERED: METHYLPREDNISOLONE 125 MG INJ ONE (12:49)
--- NOTE | 2018-11-02 13:52 | P.PN ---
Subjective Date of Service: 11/02/18 Primary Care Provider: Dr. Oconnor Chief Complaint: chest pain Subjective: Doing well Physical Examination - Vital Signs Temperature: 97.4 F Blood Pressure: 159/69 Pulse: 58 Respirations: 16 Pulse Ox (%): 96 - Physical Exam General: Alert, In no apparent distress, Oriented x3, Cooperative HEENT: Atraumatic Neck: Supple Respiratory: Clear to auscultation bilaterally, Normal air movement Cardiovascular: Normal pulses, Regular rate/rhythm Gastrointestinal: Normal bowel sounds, Soft and benign, Non-distended, No tenderness, No masses, No rebound, No guarding Musculoskeletal: No erythema, No tenderness, No warmth Integumentary: No tenderness/swelling, No erythema, No warmth, No cyanosis Neurological: Normal speech, Normal strength at 5/5 x4 extr, Normal tone, Normal affect - Studies Laboratory Data (last 24 hrs) 11/01/18 17:45: PT 12.4, INR 1.05 11/01/18 17:45: WBC 12.2 H D, Hgb 13.1 L, Hct 39.4 L, Plt Count 294 11/01/18 17:45: Sodium 144, Potassium 3.9, BUN 15, Creatinine 1.11, Glucose 237 H, Magnesium 1.8, Total Bilirubin 0.2, AST 12 L, ALT 18, Alkaline Phosphatase 97 Medications List Reviewed: Yes Assessment & Plan Discharge Plan: Transfer Plan to discharge in: 24 Hours Physician Review Additional Text: Impression: Chest pain secondary to NSTEMI status post heart catheterization showing left main disease with3 vessel disease Hypertension Hyperlipidemia Hyperglycemia likely underlying diabetes mellitus type 2 Tobacco abuse History of chronic allergies with recent angioedema related to Zithromax Obesity, BMI 30 Plan: Chest pain secondary to NSTEMI status post heart catheterization showing left main disease with3 vessel disease: Patient had elevated troponin early this morning, indicative of NSTEMI. Patient had heart catheterization. Case discussed with cardiology. Patient has left main disease with 3 vessel disease. Cardiology plans to transfer patient to higher level center for CABG. Arrangements to be made. Plan for transfer. Hypertension: Continue with medication. Hyperlipidemia: Continue medication. Hyperglycemia likely underlying diabetes mellitus type 2: Will place on sliding scale. Will check A1c. This may be related to recent use of prednisone. Will monitor closely. Tobacco abuse: Tobacco cessation addressed. History of chronic allergies with recent angioedema related to Zithromax: Zithromax has been discontinued. Patient recently on prednisone but had agitation. Will continue with Zyrtec and Pepcid. Patient will likely require allergy evaluation as an outpatient with clay structure builder and servicer to further address. Obesity, BMI 30: Address lifestyle modification education. Time Spent Managing Pts Care (In Minutes): 55
--- NOTE | 2018-11-02 14:26 | CON ---
A 58-year-old man. Additional Attending Physician: Dr. Jin. Chief Complaint: Chest pain. History Of Present Illness: Mr. Correa took a dose of prednisone because of an allergic reaction t o azithromycin and after that he started having pain in the chest. Pain was central. He said it fel t like he was having a heart attack. It went away after about 45 minutes. He came to the ER, where an EKG was unremarkable, but enzymes were initially normal and later are abnormal. Troponin has gone from a normal range to 0.3 over a 5-hour period of time. The patient has never had myocardial infar ction or stroke before. He has seen Dr. Wu recently, was started on a lipid medication. Allergies: HE IS ALLERGIC TO AZITHROMYCIN, CEFUROXIME, AND BEE STINGS. NO CONTRAST ALLERGY. Physical Examination: General: He is alert, oriented, pleasant, not in distress. Lungs: Clear. Carotids: No bruit. Heart exam: Normal. Extremities: Normal. Radial pulses . His electrocardiogram shows sinus rhythm, old inferior infarct, a new finding compared to last Novemb er. He is a regular tobacco user. We will put him through tobacco cessation program. He has commit mc himself to quit, and I had recommended cardiac cath and possible stent. He seems to understand the procedure, potential benefits, indications, risks, and agrees to ray calero. KISHA/STELLA Voice ID: [id number] Report ID: [id number]
[2018-11-02 16:16] LABS: Thyroid Stimulating Hormone 0.795 uIU/mL (0.360-3.740)
[2018-11-02] MEDS ORDERED: GLUCAGON 1 MG/VIAL IM PRN (16:47)
[2018-11-02] MEDS: INSULIN -REGULAR HUMAN 50 UNIT/0.5 ML ML SQ SCH ×2 (16:47→21:00)
[2018-11-02] MEDS ORDERED: D50W 25 GM/50 ML SYRINGE IV PRN (16:47)
[2018-11-02] MEDS ORDERED: ATORVASTATIN 40 MG TAB PO SCH (21:00)
[2018-11-02] MEDS ORDERED: MAGNESIUM SULFATE 1 gm IVPB 1 GM/100 ML BAG IV ONE (21:39)
--- NOTE | 2018-11-02 23:05 | OP ---
Surgeon: Billy Jett MD Procedures: Left heart catheterization, coronary left ventricular angiography. Procedure Findings: The patient has a 70% ostial left main stenosis. His mid LAD is 90% stenotic. His right coronary is diffusely diseased. Mid section has a long 70% stenosis. The circumflex has a 60% stenosis. His ejection fraction is normal. Left ventricular end-diastolic pressure 12. All ot her pressures were normal. No aortic valve gradient on pullback. Our recommendation is that he unde rgo bypass surgery. Procedure In Detail: The patient had evidence of a non-ST elevation VT, brought to the cardiac micro lab analyst in a fasting state, sedated with Versed and fentanyl, prepared and draped in usual sterile fashio n. Right radial artery was identified through palpation. Tissues around the artery were anesthetize d with 1% lidocaine. The artery was entered using a 21-gauge needle, cannulated with a 0.021 inch di ameter guidewire, and then a 6-Armenian Terumo radial sheath was placed. As soon as it was in place, w yin gave nicardipine, heparin, and nitroglycerin through the sheath. We were able to guide a TIG sherrill ter into the ascending aorta using fluoroscopy, a Glidewire, and a J-wire. We were able to angiogram the left coronary, right coronary, and left ventricle; all with a TIG catheter. At the end of the p rocedure, catheter was withdrawn over a wire. The sheath was flushed, removed, and the arteriotomy c losed with a TR band. Estimated Blood Loss: 5 cc. Complications From The Procedure: None. KISHA/STELLA Voice ID: [id number] Report ID: [id number]
[2018-11-03 01:42] VITALS: O2SAT 95
[2018-11-03 04:15] LABS: Absolute Lymphocytes (CBC) 2.2 K/uL (0.7-4.9); Absolute Monocytes 0.9 K/uL (0.1-1.3); Absolute Neutrophil 11.2 K/uL (1.8-8.0); Basophils % 0.2 % (0-1.3); Hematocrit 40.5 % (39.6-49.0); Lymphocytes % 15.7 % (15.3-44.8); MPV 8.6 fL (7.6-11.3); Monocytes % 6.4 % (3.3-12.3); RBC Red Blood Cell Count 4.49 M/uL (4.33-5.43)
[2018-11-03 04:26] LABS: BUN Blood Urea Nitrogen 16 mg/dL (7-18); Bicarbonate 26 mmol/L (21-32); Glucose Level 114 mg/dL (74-106); Magnesium 2.4 mg/dL (1.8-2.4); Potassium 4.1 mmol/L (3.5-5.1); Sodium Level 144 mmol/L (136-145)
[2018-11-03] MEDS: INSULIN -REGULAR HUMAN 50 UNIT/0.5 ML ML SQ SCH (07:30)
[2018-11-03 08:41] VITALS: BP 153/73; TEMP 98.5
[2018-11-03] MEDS: ASPIRIN EC 81 MG TAB PO SCH (09:00)
[2018-11-03] MEDS: FAMOTIDINE 20 MG TAB PO SCH (09:00)
[2018-11-03] MEDS: CETIRIZINE HCL 5 MG TABLET PO SCH (09:00)
[2018-11-03] MEDS: METOPROLOL TAR 25 MG TAB PO SCH (09:00)
--- NOTE | 2018-11-03 10:14 | P.DS ---
Admission Date: 11/02/18 Discharge Date: 11/03/18 Primary Care Provider: Dr. Oconnor Disposition: TRANSFER TO [facility] Discharge Condition: GOOD Reason for Admission: chest pain Consultations: Cardiology-Dr. Jett Procedures: CXR: COMPARISON: June 2018 FINDINGS: The lungs appear clear of acute infiltrate. The heart is normal size. Previously described nodular opacity overlying the left base is not seen on this exam IMPRESSION: No acute abnormalities displayed ECHO: Ejection fraction 55% LEFT VENTRICULAR WALL MOTION: NORMAL. DOPPLER/COLOR FLOW: MILD MITRAL AND TRICUSPID REGURGITATION. NORMAL RIGHT VENTRICULAR SYSTOLIC PRESSURE. COMMENTS: NORMAL 2D ECHO WITH DOPPLER. MILD MITRAL AND TRICUSPID REGURGITATION. Heart Catheterization: Surgeon: Billy Jett MD Procedures: Left heart catheterization, coronary left ventricular angiography. Procedure Findings: The patient has a 70% ostial left main stenosis. His mid LAD is 90% stenotic. His right coronary is diffusely diseased. Mid section has a long 70% stenosis. The circumflex has a 60% stenosis. His ejection fraction is normal. Left ventricular end-diastolic pressure 12. All other pressures were normal. No aortic valve gradient on pullback. Our recommendation is that he undergo bypass surgery. Estimated Blood Loss: 5 cc. Complications From The Procedure: None. Medical problem list: Chest pain secondary to NSTEMI status post heart catheterization showing 70% ostial left main stenosis, mild LAD 90% stenosis, right coronary diffusely diseased with mid section having long 70% stenosis, and circumflex with 60% stenosis Hypertension Hyperlipidemia Hyperglycemia likely underlying diabetes mellitus type 2 Tobacco abuse History of chronic allergies with recent angioedema related to Zithromax Obesity, BMI 30 Suspect obstructive sleep apnea Brief History of Present Illness: 58-year-old male presented to the emergency room with chest pain. Initial cardiac enzymes unremarkable but 2nd set abnormal. Patient was admitted for further evaluation and treatment. Hospital Course: Patient presented with chest pain. Patient with abnormal troponin secondary to NSTEMI. Patient seen and evaluated by Cardiology. Patient had a heart catheterization showing 70% ostial left main stenosis, mild LAD 90% stenosis, right coronary diffusely diseased with mid section having long 70% stenosis, and circumflex with 60% stenosis. CABG was recommended. Case discussed with cardiology. Cardiology contacted CV surgery at [facility]. Patient was accepted. Patient transferred to [facility] for CABG. Patient with hypertension, hyperlipidemia. Patient will continue with current medication. Further adjustment can be done by CV surgery team. Patient with hyperglycemia without diabetes mellitus. Hemoglobin A1c 5.9. Recommend to monitor blood blood sugars closely. Recommend to recheck hemoglobin A1c in 3 months. If greater than 6.5 then patient will need to start diabetic medication. This can be further addressed by CV surgery team and his PCP as an outpatient. Patient with tobacco abuse. Tobacco cessation addressed in detail. Patient plans to quit. Patient with history of chronic allergies with recent angioedema related to Zithromax. Zithromax discontinued. Patient had agitation with prednisone. Recommend to continue Zyrtec and Pepcid. Recommend for allergy evaluation either as inpatient or outpatient to further address. Will recommend not to use any Juels or Arb inhibitors as patient has had angioedema with lisinopril in the past. Patient with obesity. Lifestyle modification education addressed. Patient likely has underlying obstructive sleep apnea. Will recommend sleep study to be done as an outpatient to further address. Vital Signs/Physical Exam: Temp Pulse Resp BP Pulse Ox 98.5 F 55 16 153/73 H 98 11/03/18 08:00 11/03/18 08:00 11/03/18 08:00 11/03/18 08:00 11/03/18 08:00 General: Alert, In no apparent distress, Oriented x3, Cooperative HEENT: Atraumatic Neck: Supple Respiratory: Clear to auscultation bilaterally, Normal air movement Cardiovascular: Normal pulses, Regular rate/rhythm Gastrointestinal: Normal bowel sounds, Soft and benign, Non-distended, No tenderness, No masses, No rebound, No guarding Musculoskeletal: No erythema, No tenderness, No warmth Integumentary: No tenderness/swelling, No erythema, No warmth, No cyanosis Neurological: Normal speech, Normal strength at 5/5 x4 extr, Normal tone, Normal affect Laboratory Data at Discharge: WBC 14.4 K/uL (4.3-10.9) H D 11/03/18 03:32 Hgb 13.3 g/dL (13.6-17.9) L 11/03/18 03:32 Hct 40.5 % (39.6-49.0) 11/03/18 03:32 Plt Count 287 K/uL (152-406) 11/03/18 03:32 PT 12.4 SECONDS (9.5-12.5) 11/01/18 17:45 INR 1.05 11/01/18 17:45 Sodium 144 mmol/L (136-145) 11/03/18 03:32 Potassium 4.1 mmol/L (3.5-5.1) 11/03/18 03:32 BUN 16 mg/dL (7-18) 11/03/18 03:32 Creatinine 0.67 mg/dL (0.55-1.3) 11/03/18 03:32 Glucose 114 mg/dL (74-106) H 11/03/18 03:32 Magnesium 2.4 mg/dL (1.8-2.4) D 11/03/18 03:32 Total Bilirubin 0.2 mg/dL (0.2-1.0) 11/01/18 17:45 AST 12 U/L (15-37) L 11/01/18 17:45 ALT 18 U/L (12-78) 11/01/18 17:45 Alkaline Phosphatase 97 U/L (45-117) 11/01/18 17:45 Troponin I 0.26 ng/mL (0.0-0.045) H 11/02/18 15:44 Triglycerides 91 mg/dL (<150) 11/02/18 01:15 Cholesterol 222 mg/dL (<200) H 11/02/18 01:15 HDL Cholesterol 45 mg/dL (40-60) 11/02/18 01:15 Cholesterol/HDL Ratio 4.93 11/02/18 01:15 Home Medications: Atorvastatin Calcium 20 mg PO DAILY 11/01/18 Diphenhydramine [Benadryl Tab/Cap] 50 mg PO Q6HP PRN 11/01/18 Famotidine [Pepcid] 20 mg PO DAILY 11/01/18 Metoprolol Succinate 25 mg PO DAILY 11/01/18 Montelukast [Singulair] 10 mg PO DAILY 11/01/18 predniSONE [Deltasone] 40 mg PO DAILY 11/01/18 Patient Discharge Instructions: 1. Transfer to [facility] for CABG. 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 2. Continue with current meds. 3. Remain NPO Diet: NPO Activity: Bedrest Followup: Abner Oconnor MD [Primary Care Provider] - Billy Jett MD [ACTIVE - CAN ADMIT] - Time spent managing pt's care (in minutes): 55
== END 2018-11-03 09:15 | disposition short-term general hospital (02) | DRG 282 ==
LOC: ER 16:24 → ERHOLD 21:54 → 4TH 21:57 → OBSVTOIN 11-02 09:00
PROVIDERS: ADMIT Internal Medicine; ATTEND Family Medicine
PROC: 4A023N7 Measurement of Cardiac Sampling and Pressure, Left Heart, Percutaneous Approach (ICD-10-PCS; principal; 2018-11-02)
PROC: B211YZZ Fluoroscopy of Multiple Coronary Arteries using Other Contrast (ICD-10-PCS; 2018-11-02)
PROC: B215YZZ Fluoroscopy of Left Heart using Other Contrast (ICD-10-PCS; 2018-11-02)
DX: I21.4 Non-ST elevation (NSTEMI) myocardial infarction (principal); I10 Essential (primary) hypertension; F17.210 Nicotine dependence, cigarettes, uncomplicated; I25.10 Atherosclerotic heart disease of native coronary artery without angina pectoris; E78.5 Hyperlipidemia, unspecified; E66.9 Obesity, unspecified; Z68.30 Body mass index [BMI] 30.0-30.9, adult; R07.9 Chest pain, unspecified; T36.3X5A Adverse effect of macrolides, initial encounter; Y92.019 Unspecified place in single-family (private) house as the place of occurrence of the external cause; G47.33 Obstructive sleep apnea (adult) (pediatric); R73.9 Hyperglycemia, unspecified
CPT/HCPCS: 36415; 71045; 80048; 80061; 80076; 82962; 83036; 83735; 83880; 84439; 84443; 84484; 85025; 85610; 93005; 93306; 93458; 99285; C1893; G0378; J0583; J1644; J1650; J2250; J2930; J3010; J3475

== ENCOUNTER 2018-11-10 20:27 | Emergency (ER) | payer BC ==
--- OUTSIDE RECORDS SUMMARY | 2018-11-10 20:31 | XMS REPORT | Clinical Summary ---
:1960 Author Organization [facility] Address [address] [place] [address] Care Team Providers Name Role Phone Pcp, No Primary Care Provider Unavailable Allergies Active Allergy Reactions Severity Noted Date Comments Azithromycin Swelling High 11/03/2018 Lips tongue throat hand feet swell Cefuroxime Swelling High 11/03/2018 Throat swells carries epi pen feet hands lips throat swells shut Medications Medication Sig Dispensed Refills Start Date End Date Status famotidine (PEPCID) Take 20 mg by 0 Active 20 MG tablet mouth daily. montelukast Take 10 mg by 0 Active (SINGULAIR) 10 mg mouth nightly. tablet metoprolol Take 25 mg by 0 Active (TOPROL-XL) 25 MG mouth daily. 24 hr tablet atorvastatin Take 1 tablet 90 tablet 0 11/08/2018 11/08/2019 Active (LIPITOR) 80 MG (80 mg total) tablet by mouth nightly. aspirin 81 MG EC Take 1 tablet 90 tablet 0 11/09/2018 11/09/2019 Active tablet (81 mg total) by mouth daily. bumetanide (BUMEX) Take 1 tablet 90 tablet 0 11/09/2018 11/09/2019 Active 1 MG tablet (1 mg total) by mouth daily. clopidogrel Take 1 tablet 90 tablet 0 11/09/2018 11/09/2019 Active (PLAVIX) 75 mg (75 mg total) tablet by mouth daily. potassium chloride Take 1 tablet 90 tablet 0 11/08/2018 11/08/2019 Active SA (K-DUR,KLOR-CON) (20 mEq total) 20 MEQ tablet by mouth daily While on diuretics. senna (SENOKOT) 8.6 Take 2 tablets 60 tablet 0 11/08/2018 11/08/2019 Active mg tablet (17.2 mg total) by mouth nightly. traMADol (ULTRAM) Take 1 tablet 30 tablet 0 11/08/2018 11/18/2018 Active 50 mg tablet (50 mg total) by mouth every 6 (six) hours as needed for Pain for up to 10 days. Max Daily Amount: 200 mg atorvastatin Take 10 mg by 0 11/08/2018 Discontinued (LIPITOR) 10 MG mouth daily. tablet Active Problems Problem Noted Date Volume overload 11/07/2018 HTN (hypertension) 11/07/2018 HLD (hyperlipidemia) 11/07/2018 Tobacco abuse 11/07/2018 Allergic rhinitis 11/07/2018 Coronary artery disease 11/03/2018 Vasogenic shock 11/03/2018 Respiratory insufficiency 11/03/2018 Acute blood loss anemia 11/03/2018 S/P CABG (coronary artery bypass graft) 11/03/2018 Hypotension due to hypovolemia Hyperglycemia Encounters Date Type Specialty Care Team Description 11/05/2018 Travel 11/03/2018 Surgery Vasile, BYPASS,AORTO Marvin Ortega, CORONARY BETH/SVG 11/03/2018 Anesthesia Event Guillermo Rock, AA 11/03/2018 - Hospital Encounter Cardiology Reji Murillo S/P CABG (coronary artery bypass graft) (Primary Dx); 11/08/2018 (Zunilda Valdez MD Acute blood loss anemia; Hortensia Campbell Respiratory insufficiency; MD Coty Coronary artery disease involving tulalip coronary artery of tulalip heart with unstable angina pectoris (HCC) Dennis Good MD 11/03/2018 Orders Only General Internal Medicine after 11/09/2017 Social History Tobacco Use Types Packs/Day Years Used Date Former Smoker Cigarettes Quit: 11/01/2018 Smokeless Tobacco: Never Used Tobacco Cessation: Counseling Given: Yes Sex Assigned at Date Recorded Not on file Job Start Date Occupation Industry Not on file Not on file Not on file Travel History Travel Start Travel End No recent travel history available. Last Filed Vital Signs Vital Sign Reading Time Taken Blood Pressure 119/76 11/08/2018 7:33 AM CDT Pulse 90 11/08/2018 7:33 AM CDT Temperature 35.6 C (96.1 F) 11/08/2018 7:33 AM CDT Respiratory Rate 18 11/08/2018 7:33 AM CDT Oxygen Saturation 95% 11/08/2018 7:33 AM CDT Inhaled Oxygen Concentration 100% 11/04/2018 11:31 AM [employer] Weight 89.5 kg (197 lb 4.8 oz) 11/08/2018 7:33 AM CDT Height 175.3 cm (5' 9") 11/03/2018 10:52 AM [employer] Body Mass Index 29.14 11/08/2018 7:33 AM CDT Plan of Treatment Date Type Specialty Care Team Description 11/17/2018 Office Visit Cardiology Marvin Burnette MD [address] [facility] [phone] [place], [place] [phone] Procedures Procedure Name Priority Date/Time Associated Comments Diagnosis REPORT OF PROCEDURE - 11/10/2018 2:10 ENDOSCOPY SCAN PM CDT REPORT OF PROCEDURE - 11/10/2018 2:10 ENDOSCOPY SCAN PM CDT RHYTHM STRIP - SCAN 11/10/2018 2:10 PM CDT ECHOCARDIOGRAM REPORT - 11/08/2018 9:23 SCAN PM CDT CBC W/PLT COUNT & AUTO Routine 11/08/2018 4:28 Results for this DIFFERENTIAL AM CDT procedure are in the results section. MAGNESIUM Routine 11/08/2018 4:28 Results for this AM CDT procedure are in the results section. BASIC METABOLIC PANEL Routine 11/08/2018 4:28 Results for this (7) AM CDT procedure are in the results section. CBC W/PLT COUNT & AUTO Routine 11/08/2018 4:28 Results for this DIFFERENTIAL AM CDT procedure are in the results section. 2D ECHO W/ DOPPLER Routine 11/07/2018 10:01 Results for this (CW/PW/COLOR) PM CDT procedure are in the results section. POCT-GLUCOSE METER Routine 11/07/2018 9:12 Results for this PM CDT procedure are in the results section. POCT-GLUCOSE METER Routine 11/07/2018 8:17 Results for this AM CDT procedure are in the results section. CBC W/PLT COUNT & AUTO Routine 11/07/2018 4:36 Results for this DIFFERENTIAL AM CDT procedure are in the results section. MAGNESIUM Routine 11/07/2018 4:36 Results for this AM CDT procedure are in the results section. BASIC METABOLIC PANEL Routine 11/07/2018 4:36 Results for this (7) AM CDT procedure are in the results section. CBC W/PLT COUNT & AUTO Routine 11/07/2018 4:36 Results for this DIFFERENTIAL AM CDT procedure are in the results section. POCT-GLUCOSE METER Routine 11/06/2018 9:52 Results for this PM CDT procedure are in the results section. POCT-GLUCOSE METER Routine 11/06/2018 12:10 Results for this PM CDT procedure are in the results section. POCT-GLUCOSE METER Routine 11/06/2018 8:26 Results for this AM CDT procedure are in the results section. XR CHEST 1 VIEW Routine 11/06/2018 7:28 Results for this PORTABLE/BEDSIDE AM CDT procedure are in the results section. CBC W/PLT COUNT & AUTO Routine 11/06/2018 6:55 Results for this DIFFERENTIAL AM CDT procedure are in the results section. CBC W/PLT COUNT & AUTO Routine 11/06/2018 6:55 Results for this DIFFERENTIAL AM CDT procedure are in the results section. BASIC METABOLIC PANEL Routine 11/06/2018 5:58 Results for this (7) AM CDT procedure are in the results section. POCT-GLUCOSE METER Routine 11/05/2018 9:24 Results for this PM [employer] procedure are in the results section. PERIPHERAL VASCULAR 11/05/2018 9:20 REPORT - SCAN PM [employer] XR CHEST 1 VIEW STAT 11/05/2018 11:22 Results for this PORTABLE/BEDSIDE AM [employer] procedure are in the results section. CBC (HEMOGRAM ONLY) Routine 11/05/2018 3:17 Results for this AM [employer] procedure are in the results section. PHOSPHORUS Routine 11/05/2018 3:17 Results for this AM [employer] procedure are in the results section. MAGNESIUM Routine 11/05/2018 3:17 Results for this AM [employer] procedure are in the results section. BASIC METABOLIC PANEL Routine 11/05/2018 3:17 Results for this (7) AM [employer] procedure are in the results section. TRANSFUSION SERVICE 11/04/2018 6:03 REPORT - SCAN PM [employer] POCT-GLUCOSE METER Routine 11/04/2018 5:40 Results for this PM [employer] procedure are in the results section. MAGNESIUM Routine 11/04/2018 2:27 Results for this PM [employer] procedure are in the results section. POCT-GLUCOSE METER Routine 11/04/2018 12:21 Results for this PM [employer] procedure are in the results section. CAROTID DOPPLER Routine 11/04/2018 12:20 Results for this BILATERAL PM [employer] procedure are in the results section. POCT-GLUCOSE METER Routine 11/04/2018 6:21 Results for this AM [employer] procedure are in the results section. FIBRINOGEN Routine 11/04/2018 5:23 Results for this AM [employer] procedure are in the results section. APTT Routine 11/04/2018 5:23 Results for this AM [employer] procedure are in the results section. PROTHROMBIN TIME/INR Routine 11/04/2018 5:23 Results for this AM [employer] procedure are in the results section. XR CHEST 1 VIEW Routine 11/04/2018 4:05 Results for this PORTABLE/BEDSIDE AM [employer] procedure are in the results section. BLOOD GAS, ARTERIAL STAT 11/04/2018 2:39 Results for this AM [employer] procedure are in the results section. CBC (HEMOGRAM ONLY) Routine 11/04/2018 2:39 Results for this AM [employer] procedure are in the results section. PHOSPHORUS Routine 11/04/2018 2:39 Results for this AM [employer] procedure are in the results section. MAGNESIUM Routine 11/04/2018 2:39 Results for this AM [employer] procedure are in the results section. BASIC METABOLIC PANEL Routine 11/04/2018 2:39 Results for this (7) AM [employer] procedure are in the results section. POCT-GLUCOSE METER Routine 11/04/2018 12:01 Results for this AM [employer] procedure are in the results section. BLOOD GAS, ARTERIAL STAT 11/03/2018 10:44 Results for this PM [employer] procedure are in the results section. RRL CRITICAL LABS STAT 11/03/2018 10:44 Results for this (ABG,NA,K,H&H,GLUCOSE) PM [employer] procedure are in the results section. BLOOD GAS, ARTERIAL STAT 11/03/2018 9:55 Results for this PM [employer] procedure are in the results section. RRL CRITICAL LABS STAT 11/03/2018 9:55 Results for this (ABG,NA,K,H&H,GLUCOSE) PM [employer] procedure are in the results section. HGB/HCT (H&H) - STAT STAT 11/03/2018 8:56 Results for this LAB PM [employer] procedure are in the results section. GLUCOSE-STAT LAB STAT 11/03/2018 8:56 Results for this PM [employer] procedure are in the results section. POTASSIUM-STAT LAB STAT 11/03/2018 8:56 Results for this PM [employer] procedure are in the results section. SODIUM NA-STAT LAB STAT 11/03/2018 8:56 Results for this PM [employer] procedure are in the results section. BLOOD GAS, ARTERIAL STAT 11/03/2018 8:56 Results for this PM [employer] procedure are in the results section. RRL CRITICAL LABS STAT 11/03/2018 8:56 Results for this (ABG,NA,K,H&H,GLUCOSE) PM [employer] procedure are in the results section. FIBRINOGEN STAT 11/03/2018 7:39 Results for this PM [employer] procedure are in the results section. APTT STAT 11/03/2018 7:39 Results for this PM [employer] procedure are in the results section. PROTHROMBIN TIME/INR STAT 11/03/2018 7:39 Results for this PM [employer] procedure are in the results section. BLOOD GAS, ARTERIAL STAT 11/03/2018 7:39 Results for this PM [employer] procedure are in the results section. XR CHEST 1 VIEW Routine 11/03/2018 7:18 Results for this PORTABLE/BEDSIDE PM [employer] procedure are in the results section. CALCIUM, IONIZED STAT 11/03/2018 7:14 Results for this PM [employer] procedure are in the results section. OXYGEN SATURATION, STAT 11/03/2018 7:14 Results for this MEASURED PM [employer] procedure are in the results section. LACTIC ACID, ARTERIAL STAT 11/03/2018 7:14 Results for this PM [employer] procedure are in the results section. CBC W/PLT COUNT & AUTO STAT 11/03/2018 7:06 Results for this DIFFERENTIAL PM [employer] procedure are in the results section. CBC W/PLT COUNT & AUTO STAT 11/03/2018 7:06 Results for this DIFFERENTIAL PM [employer] procedure are in the results section. PHOSPHORUS STAT 11/03/2018 7:06 Results for this PM [employer] procedure are in the results section. MAGNESIUM STAT 11/03/2018 7:06 Results for this PM [employer] procedure are in the results section. BASIC METABOLIC PANEL STAT 11/03/2018 7:06 Results for this (7) PM [employer] procedure are in the results section. VIVIENNE,3D 11/03/2018 5:01 Coronary artery PM [employer] disease involving tulalip coronary artery of tulalip heart without angina pectoris Special Needs (ICU BED ) ENDOSCOPIC HARVEST,VEIN 11/03/2018 5:01 PM [employer] Coronary artery disease involving tulalip coronary artery of tulalip heart without angina pectoris Special Needs (ICU BED ) BYPASS,AORTO CORONARY BETH/SVG 11/03/2018 5:01 PM [employer] Coronary artery disease involving tulalip coronary artery of tulalip heart without angina pectoris Special Needs (ICU BED ) HGB/HCT (H&H) - STAT LAB STAT 11/03/2018 4:28 PM [employer] GLUCOSE-STAT LAB STAT 11/03/2018 4:28 PM [employer] POTASSIUM-STAT LAB STAT 11/03/2018 4:28 PM [employer] SODIUM NA-STAT LAB STAT 11/03/2018 4:28 PM [employer] BLOOD GAS, ARTERIAL STAT 11/03/2018 4:28 PM [employer] RRL CRITICAL LABS STAT 11/03/2018 4:28 PM [employer] Results for this (ABG,NA,K,H&H,GLUCOSE) procedure are in the results section. HGB/HCT (H&H) - STAT LAB STAT 11/03/2018 3:57 PM [employer] GLUCOSE-STAT LAB STAT 11/03/2018 3:57 PM [employer] POTASSIUM-STAT LAB STAT 11/03/2018 3:57 PM [employer] SODIUM NA-STAT LAB STAT 11/03/2018 3:57 PM [employer] BLOOD GAS, ARTERIAL STAT 11/03/2018 3:57 PM [employer] RRL CRITICAL LABS STAT 11/03/2018 3:57 PM [employer] Results for this (ABG,NA,K,H&H,GLUCOSE) procedure are in the results section. HGB/HCT (H&H) - STAT LAB Routine 11/03/2018 3:14 PM [employer] GLUCOSE-STAT LAB Routine 11/03/2018 3:14 PM [employer] POTASSIUM-STAT LAB Routine 11/03/2018 3:14 PM [employer] SODIUM NA-STAT LAB Routine 11/03/2018 3:14 PM [employer] BLOOD GAS, ARTERIAL Routine 11/03/2018 3:14 PM [employer] RRL CRITICAL LABS Routine 11/03/2018 3:14 PM [employer] Results for this (ABG,NA,K,H&H,GLUCOSE) procedure are in the results section. XR CHEST 1 VIEW Routine 11/03/2018 1:12 PM [employer] Results for this PORTABLE/BEDSIDE procedure are in the results section. ABORH, MANUAL STAT 11/03/2018 12:37 PM [employer] (CELLAVISION MANUAL DIFF) Routine 11/03/2018 11:52 AM [employer] CBC W/PLT COUNT & AUTO Routine 11/03/2018 11:52 AM [employer] Results for this DIFFERENTIAL procedure are in the results section. TYPE AND SCREEN, AUTOMATED Routine 11/03/2018 11:52 AM [employer] PROTHROMBIN TIME/INR Routine 11/03/2018 11:52 AM [employer] MAGNESIUM Routine 11/03/2018 11:52 AM [employer] LIPID PANEL Routine 11/03/2018 11:52 AM [employer] HEMOGLOBIN A1C AP Routine 11/03/2018 11:52 AM [employer] COMPREHENSIVE METABOLIC Routine 11/03/2018 11:52 AM [employer] Results for this PANEL procedure are in the results section. CBC W/PLT COUNT & AUTO Routine 11/03/2018 11:52 AM [employer] Results for this DIFFERENTIAL procedure are in the results section. APTT Routine 11/03/2018 11:52 AM [employer] POCT-ACT Routine 11/03/2018 10:55 AM [employer] ECG 12-LEAD Routine 11/03/2018 10:45 AM [employer] Procedure Note - Interface, External Ris In - 11/03/2018 11:11 AM [employer] Ventricular Rate 51 BPM Atrial Rate 51 BPM P-R Interval 132 ms QRS Duration 94 ms Q-T Interval 470 ms QTC Calculation(Bazett) 433 ms P Barbeau 8 degrees R Barbeau 17 degrees T Barbeau 35 degrees Sinus bradycardia Possible Inferior infarct , age undetermined Abnormal ECG No previous ECGs available ECG 12-LEAD Routine 11/03/2018 10:45 AM [employer] POCT-ACT Routine 11/03/2018 10:30 AM [employer] POCT-ACT Routine 11/03/2018 10:17 AM [employer] POCT-ACT Routine 11/03/2018 10:04 AM [employer] after 11/09/2017 Results EKG-SCANNED (11/10/2018 2:10 PM CDT)Only the most recent of2 resultswithin the time period is included. Narrative Performed At RHYTHM STRIP - SCAN (11/10/2018 2:10 PM CDT) Narrative Performed At ECHOCARDIOGRAM REPORT - SCAN (11/08/2018 9:23 PM CDT) Narrative Performed At CBC with platelet count + automated diff (11/08/2018 4:28 AM CDT)Only the most recent of5 resultswithin the time period is included. WBC 11.5 (H) 3.5 - 10.5 K/L [facility] RBC 3.19 (L) 4.63 - 6.08 M/L [facility] Hemoglobin 9.4 (L) 13.7 - 17.5 GM/DL [facility] Hematocrit 29.0 (L) 40.1 - 51.0 % [facility] MCV 90.9 79.0 - 92.2 fL [facility] MCH 29.5 25.7 - 32.2 pg [facility] MCHC 32.4 32.3 - 36.5 GM/DL [facility] RDW 12.9 11.6 - 14.4 % [facility] Platelets 310 150 - 450 K/CU MM [facility] MPV 10.3 9.4 - 12.4 fL [facility] nRBC 0 0 - 0 /100 WBC [facility] % Neutros 65 % [facility] % Lymphs 21 % [facility] % Monos 9 % [facility] % Eos 4 % [facility] % Baso 0 % [facility] # Neutros 7.47 (H) 1.78 - 5.38 K/L [facility] # Lymphs 2.39 1.32 - 3.57 K/L [facility] # Monos 1.08 (H) 0.30 - 0.82 K/L [facility] # Eos 0.42 0.04 - 0.54 K/L [facility] # Baso 0.04 0.01 - 0.08 K/L [facility] Immature Granulocytes-Relative 1 0 - 1 % [facility] Specimen Blood - Arm, Left Performing Organization Address City/[facility]/Zipcode Phone Number [address] [address] CENTER Magnesium (11/08/2018 4:28 AM CDT)Only the most recent of7 resultswithin the time period is included. Magnesium 1.7 1.6 - 2.6 mg/dL [facility] Specimen Blood - Arm, Left Performing Organization Address City/[facility]/Zipcode Phone Number [facility] [address] [place] [phone] CENTER Basic Metabolic Panel (11/08/2018 4:28 AM CDT)Only the most recent of6 resultswithin the time period is included. Sodium 137 136 - 145 meq/L [facility] Potassium 3.7 3.5 - 5.1 meq/L [facility] Chloride 100 98 - 107 meq/L [facility] CO2 25 22 - 29 meq/L [facility] BUN 13 7 - 21 mg/dL [facility] Creatinine 0.71 0.57 - 1.25 mg/dL [facility] Glucose 99 70 - 105 mg/dL [facility] Calcium 9.1 8.4 - 10.2 mg/dL [facility] EGFR 139Comment: ESTIMATED GFR IS mL/min/1.73 sq m [facility] NOT ACCURATE [facility] CLEARANCE IN PREDICTING GLOMERULAR FILTRATION RATE. ESTIMATED GFR IS NOT APPLICABLE FOR DIALYSIS PATIENTS. Specimen Blood - Arm, Left Performing Organization Address City/State/Zipcode Phone Number [facility] [address] [place] [address] [phone] CENTER 2D Echo W/Doppler(CW/PW/Color) (11/07/2018 10:01 PM CDT) Ejection Fraction [facility] ECHO [facility] Narrative Performed At Transthoracic Echocardiography Report (TTE) [facility] Demographics Patient NameGOGOYO RUFF Date of Study11/07/2018 Gender Other Visit [id number] Race Unknown [id number] Number Date of 1960 ReferringMicmerry Matute Physician Age 58 year(s) SonographerSgeneva Almeida [facility], RVT Case Picker Christo Harvey,Interpreting Aryan Cotton [facility] PhysicianMD Procedure Type of Study TTE procedure:2DECHO W DOPPLER(CW/PW/COLOR) (Routine) Indications:Acute Chest Pain/ Suspected CAD. Clinical History HLD, HTN, S/P ACBX3 11/03/18 HGB 9.5 HCT 28.6 % Contrast Medium: Definity. Amount - 2 ml Height: 69 inches Weight: 94.35 kg (208 lbs) BSA: 2.1 m^2 BMI: 30.72 kg/m^2 HR: 95 bpm BP: 119/73 mmHg Summary LV endocardium is adequately visualized with IV ultrasound enhancing agent. Normal left ventricular chamber size. Normal wall thickness. No apparent segmental wall motion abnormalities. LVEF by Mcclure's method of disk assessment is normal (55-60%) . Grade 1 diastolic dysfunction (impaired relaxation and low-normal LA pressure). LVEF by Mcclure's method of disk assessment is normal (55-60%) . A trivial pericardial effusion is present posteriorly The estimated RA pressure by IVC dynamics 0-5mmHg . Signature Findings Rhythm/BPRegular sinus rhythm during the exam. Left Ventricle LV endocardium is adequately visualized with IV ul trasound enhancing agent. Normal left ventricular ch hussain size. Normal wall thickness. No apparent se gmental wall motion abnormalities. LV EF by Mcclure's method of disk assessment is no rmal (55-60%) . Gr nicole 1 diastolic dysfunction (impaired relaxation an d low-normal LA pressure). LV EF by Mcclure's method of disk assessment is no rmal (55-60%) . Left AtriumLA size is normal (16-34 ml/m2) . Right VentricleThe right ventricular chamber size and systolic fu nction are within normal limits. Right Atrium RA size is normal. Atrial SeptumNormal interatrial septum by available views. Aortic Valve No evidence of aortic stenosis. No evidence of aortic regurgitation. No rmal AoV structure. Mitral Valve Normal MV structure. No evidence of mitral regurgitation. Tricuspid ValveNormal TV structure and function by available views an d Doppler. Th ere is a trace of tricuspid regurgitation. Un able to estimate peak systolic PA pressure; in adequate TR velocity signal. Pulmonic Valve Normal PV structure and function by limited views an d Doppler. AortaAortic root size (SInus of Valsalva diameter) is no rmal . PericardiumA trivial pericardial effusion is present po steriorly IVC/SVC/PA/PV/PleuralThe estimated RA pressure by IVC dynamics 0-5mmHg . Chambers/Structures Left Atrium LA Volume: 59.92 ml LA Vol. Index: 29 ml/m^2 Left Ventricle LVIDd: 4.37 cm LVEDV:96.23 ml LV Septum Diastolic: 1.12 cm LV PW Diastolic: 1.06 cm LVEDV Mcclure's:105.14 ml LVESV Mcclure's:42.97 ml LVEF Mcclure's: 59.1 % LVEDVI: 50 ml/m^2 LVES : 20 ml/m^2 LVOT Diameter: 2.02 cm Right Atrium RA Area: 16.38 cm^2 Right Ventricle RV Diast Dim.: 2.83 cm Aorta Ao Root S of Mally.: 3.53 cm Doppler/Quantitative Measurements Mitral Valve MV Peak E-Wave: 0.87 m/sMV Peak A-Wave: 0.97 m/s E/A Ratio: 0.9 Peak Gradient: 3.04 mmHg Deceleration Time: 134.5 msec MV Arnaldo. Peak: Tissue Doppler E' Lateral Velocity: 0.07 m/s A' Lateral Velocity: 0.08 m/s E/E': 13.24 Aortic Valve Peak Velocity: 1.71 m/sMean Velocity: 1.25 m/s Peak Gradient: 11.71 mmHgMean Gradient: 6.86 mmHg AV Area (continuity): 2.35 cm^2 AV VTI: 32.43 cm AV DVI: 0.73 LVOT Peak Velocity: 1.24 m/s Peak Gradient: 6.14 mmHg Mean Velocity: 0.89 m/s Mean Gradient: 3.46 mmHg LVOT Diameter: 2.02 cmLVOT VTI: 23.8 cm LVOT Area: 3.2 cm^2 LVOT SV:76.23 ml LVOT CO: 7.24 l/min LVOT CI: 3.45 l/min/m^2 Procedure Note Interface, External Ris In - 11/10/2018 1:14 PM CDT Transthoracic Echocardiography Report (TTE) Demographics Patient Name GOYO CORREA Date of Study 11/07/2018 Gender Other Visit Number [id number] Race Unknown Room Number 1031 Number Date of 1960 Referring Shorty Matute Physician Age 58 year(s) 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 Clinical History HLD, HTN, S/P ACBX3 11/03/18 HGB 9.5 HCT 28.6 % Contrast Medium: Definity. Amount - 2 ml Height: 69 inches Weight: 94.35 kg (208 lbs) BSA: 2.1 m^2 BMI: 30.72 kg/m^2 HR: 95 bpm BP: 119/73 mmHg Summary LV endocardium is adequately visualized with IV ultrasound enhancing agent. Normal left ventricular chamber size. Normal wall thickness. No apparent segmental wall motion abnormalities. LVEF by Mcclure's method of disk assessment is normal (55-60%) . Grade 1 diastolic dysfunction (impaired relaxation and low-normal LA pressure). LVEF by Mcclure's method of disk assessment is normal (55-60%) . A trivial pericardial effusion is present posteriorly The estimated RA pressure by IVC dynamics 0-5mmHg . Signature Findings Rhythm/BP Regular sinus rhythm during the exam. Left Ventricle LV endocardium is adequately visualized with IV ultrasound enhancing agent. Normal left ventricular chamber size. Normal wall thickness. No apparent segmental wall motion abnormalities. LVEF by Mcclure's method of disk assessment is normal (55-60%) . Grade 1 diastolic dysfunction (impaired relaxation and low-normal LA pressure). LVEF by Mcclure's method of disk assessment is normal (55-60%) . Left Atrium LA size is normal (16-34 ml/m2) . Right Ventricle The right ventricular chamber size and systolic function are within normal limits. Right Atrium RA size is normal. Atrial Septum Normal interatrial septum by available views. Aortic Valve No evidence of aortic stenosis. No evidence of aortic regurgitation. Normal AoV structure. Mitral Valve Normal MV structure. No evidence of mitral regurgitation. Tricuspid Valve Normal TV structure and function by available views and Doppler. There is a trace of tricuspid regurgitation. Unable to estimate peak systolic PA pressure; inadequate TR velocity signal. Pulmonic Valve Normal PV structure and function by limited views and Doppler. Aorta Aortic root size (SInus of Valsalva diameter) is normal . Pericardium A trivial pericardial effusion is present posteriorly IVC/SVC/PA/PV/Pleural The estimated RA pressure by IVC dynamics 0-5mmHg . Chambers/Structures Left Atrium LA Volume: 59.92 ml LA Vol. Index: 29 ml/m^2 Left Ventricle LVIDd: 4.37 cm LVEDV:96.23 ml LV Septum Diastolic: 1.12 cm LV PW Diastolic: 1.06 cm LVEDV Mcclure's:105.14 ml LVESV Mcclure's:42.97 ml LVEF Mcclure's: 59.1 % LVEDVI: 50 ml/m^2 LVESVI: 20 ml/m^2 LVOT Diameter: 2.02 cm Right Atrium RA Area: 16.38 cm^2 Right Ventricle RV Diast Dim.: 2.83 cm Aorta Ao Root S of Mally.: 3.53 cm Doppler/Quantitative Measurements Mitral Valve MV Peak E-Wave: 0.87 m/s MV Peak A-Wave: 0.97 m/s E/A Ratio: 0.9 Peak Gradient: 3.04 mmHg Deceleration Time: 134.5 msec MV Arnaldo. Peak: Tissue Doppler E' Lateral Velocity: 0.07 m/s A' Lateral Velocity: 0.08 m/s E/E': 13.24 Aortic Valve Peak Velocity: 1.71 m/s Mean Velocity: 1.25 m/s Peak Gradient: 11.71 mmHg Mean Gradient: 6.86 mmHg AV Area (continuity): 2.35 cm^2 AV VTI: 32.43 cm AV DVI: 0.73 LVOT Peak Velocity: 1.24 m/s Peak Gradient: 6.14 mmHg Mean Velocity: 0.89 m/s Mean Gradient: 3.46 mmHg LVOT Diameter: 2.02 cm LVOT VTI: 23.8 cm LVOT Area: 3.2 cm^2 LVOT SV:76.23 ml LVOT CO: 7.24 l/min LVOT CI: 3.45 l/min/m^2 Performing Organization Address City/[facility]/Zipcode Phone Number [facility] MKCKESSON CPACS POC-Glucose meter (11/07/2018 9:12 PM CDT)Only the most recent of10 resultswithin the time period is included. POC-Glucose Meter 116 (H)Comment: TESTED AT 70 - 110 mg/dL [facility] [address] [facility] [address] Specimen Blood Performing Organization Address City/[facility] Phone Number [address] [address] CENTER XR chest 1 view portable / bedside (11/06/2018 7:28 AM CDT)Only the most recent of5 resultswithin the time period is included. Narrative Performed At FINAL REPORT [facility] INDICATION: pl effusion COMPARISON: November 05 TECHNIQUE: Chest radiograph, single view, portable technique. FINDINGS / IMPRESSION: Right internal jugular line and chest tubes are removed. Patient is status post recent coronary artery bypass surgery. Left hemidiaphragm is elevated with left lung mostly linear opacities probably related atelectasis. Pulmonary veins are not engorged. No apical cap or pneumothorax demonstrated. Signed: Quirino Hernandez MD Report Verified Date/Time:11/06/2018 08:37:04 Reading Location: [facility] B1 C013X Ortho Consult Reading Room Procedure Note Interface, External Ris In - 11/06/2018 8:39 AM CDT FINAL REPORT INDICATION: pl effusion COMPARISON: November 05 TECHNIQUE: Chest radiograph, single view, portable technique. FINDINGS / IMPRESSION: Right internal jugular line and chest tubes are removed. Patient is status post recent coronary artery bypass surgery. Left hemidiaphragm is elevated with left lung mostly linear opacities probably related atelectasis. Pulmonary veins are not engorged. No apical cap or pneumothorax demonstrated. Signed: Quirino Hernandez MD Report Verified Date/Time: 11/06/2018 08:37:04 Reading Location: [facility] C013X Ortho Consult Reading Room Performing Organization Address City/State/Zipcode Phone Number GE RIS PERIPHERAL VASCULAR REPORT - SCAN (11/05/2018 9:20 PM SEA KAYAKING GUIDE) Narrative Performed At CBC (Hemogram only) (11/05/2018 3:17 AM SEA KAYAKING GUIDE)Only the most recent of2 resultswithin the time period is included. WBC 18.8 (H) 3.5 - 10.5 K/L [facility] RBC 3.32 (L) 4.63 - 6.08 M/L [facility] Hemoglobin 10.0 (L) 13.7 - 17.5 GM/DL [facility] Hematocrit 30.4 (L) 40.1 - 51.0 % [facility] MCV 91.6 79.0 - 92.2 fL [facility] MCH 30.1 25.7 - 32.2 pg [facility] MCHC 32.9 32.3 - 36.5 GM/DL [facility] RDW 13.1 11.6 - 14.4 % [facility] Platelets 190 150 - 450 K/CU MM [facility] MPV 10.3 9.4 - 12.4 fL [facility] nRBC 0 0 - 0 /100 WBC [facility] Specimen Blood Performing Organization Address City/State/Zipcode Phone Number [facility] [address] [place] [address] [phone] CENTER Phosphorus (11/05/2018 3:17 AM SEA KAYAKING GUIDE)Only the most recent of3 resultswithin the time period is included. Phosphorus 2.5 2.3 - 4.7 mg/dL [facility] Specimen Blood Performing Organization Address City/State/Zipcode Phone Number [facility] [address] [place] [address] [phone] CENTER TRANSFUSION SERVICE REPORT - SCAN (11/04/2018 6:03 PM SEA KAYAKING GUIDE) Narrative Performed At Carotid doppler bilateral (11/04/2018 12:20 PM SEA KAYAKING GUIDE) Ejection Fraction [facility] ECHO HEART[facility] MK[facility] CPACS Impressions Performed At Right Impression [facility] ECHO [facility]ART[facility] CPACS Not obtained lines Left Impression 1. There is 50-69% diameter reduction (vspudfxfusylc37 % by 2-D measurement) in the internal carotid artery with heterogeneous plaque, a peak velocity of 136/36cm/sec and an ICA/CCA peak systolic velocity ratio of 1.84 . 2. There is non-occluding plaque in the external carotid artery. 3. There is non-occluding plaque in the common carotid artery. 4. The vertebral artery flow is antegrade and normal. 5. The subclavian artery is within normal limits where visualized. Conclusions Summary Carotid duplex scanning and color flow imaging were performed on the left side. The left internal carotid artery had 50-69% hemodynamically significant stenosis (approximately 58% by 2-D measurement) with heterogeneous plaque. The vertebral artery is antegrade. *Right side not obtained due to lines. Signature Velocities are measured in cm/s ; Diameters are measured in cm Carotid Left Measurements + +----+----+-----+ +---- + + !Location !PSV !EDV !Angle!%Stenosis 2D!%Stenosis Doppler!Tortuosity ! + +----+----+-----+ +---- + + !Prox CCA !86.8!28.7!60 !! ! ! + +----+----+-----+ +---- + + !Dist CCA !74.5!21.1!60 !! ! ! + +----+----+-----+ +---- + + !Prox ICA !137 !36.3!60 !58% !50-69% ! ! + +----+----+-----+ +---- + + !Dist ICA !88.4!39.3!60 !! ! ! + +----+----+-----+ +---- + + !Prox ECA !91.5!10.6!60 !! ! ! + +----+----+-----+ +---- + + !Vertebral!48.7!17.3!60 !! ! ! + +----+----+-----+ +---- + + !Prox Subclavian!106 !10.2!60 !! ! ! + +----+----+-----+ +---- + + - Additional Measurements:ICAPSV/CCAPSV 1.84.ICAEDV/CCAEDV 1.37. Narrative Performed At LAB - Carotid Duplex Study [facility] Dem[facility] Patient NameGOYO CORREA Date of Study 11/04/2018 Age 58 Visit [id number] GenderMale Date of 1960 Referring Sergio Corrigan,Room Number C826 Physician FEL [employer] Controller Santana Clement, Michelle REYES Procedure Type of Study: Cerebral: Carotid, CAROTID DOPPLER, BILATERAL. Indications for Study:Screening . Patient Status:Routine. Study Location:Portable. Technical Quality:Adequate visualization. Risk Factors History of Disease +---------+----+ + !Diagnosis!Date!Comments ! +---------+----+ + !Other!!Cardiac Disease, Invasive Line (Right Neck)! 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 Indications for Study:Screening . Patient Status:Routine. Study Location:Portable. Technical Quality:Adequate visualization. Risk Factors History of Disease +---------+----+ + !Diagnosis!Date!Comments ! +---------+----+ + !Other ! !Cardiac Disease, Invasive Line (Right Neck) ! +---------+----+ + Impressions Right Impression Not obtained lines Left Impression 1. There is 50-69% diameter reduction (fgvkwrtpdbwov95 % by 2-D measurement) in the internal carotid artery with heterogeneous plaque, a peak velocity of 136/36cm/sec and an ICA/CCA peak systolic velocity ratio of 1.84 . 2. There is non-occluding plaque in the external carotid artery. 3. There is non-occluding plaque in the common carotid artery. 4. The vertebral artery flow is antegrade and normal. 5. The subclavian artery is within normal limits where visualized. Conclusions Summary Carotid duplex scanning and color flow imaging were performed on the left side. The left internal carotid artery had 50-69% hemodynamically significant stenosis (approximately 58% by 2-D measurement) with heterogeneous plaque. The vertebral artery is antegrade. *Right side not obtained due to lines. Signature Velocities are measured in cm/s ; Diameters are measured in cm Carotid Left Measurements + +----+----+-----+ + + + !Location !PSV !EDV !Angle!%Stenosis 2D!%Stenosis Doppler!Tortuosity ! + +----+----+-----+ + + + !Prox CCA !86.8!28.7!60 ! ! ! ! + +----+----+-----+ + + + !Dist CCA !74.5!21.1!60 ! ! ! ! + +----+----+-----+ + + + !Prox ICA !137 !36.3!60 !58% !50-69% ! ! + +----+----+-----+ + + + !Dist ICA !88.4!39.3!60 ! ! ! ! + +----+----+-----+ + + + !Prox ECA !91.5!10.6!60 ! ! ! ! + +----+----+-----+ + + + !Vertebral !48.7!17.3!60 ! ! ! ! + +----+----+-----+ + + + !Prox Subclavian!106 !10.2!60 ! ! ! ! + +----+----+-----+ + + + - Additional Measurements:ICAPSV/CCAPSV 1.84.ICAEDV/CCAEDV 1.37. Performing Organization Address City/[facility]/Zipcode Phone Number [facility] CP[facility] aPTT (11/04/2018 5:23 AM SEA KAYAKING GUIDE)Only the most recent of3 resultswithin the time period is included. PTT 32.3 22.5 - 36.0 seconds [facility] CENTER Specimen Blood Performing Organization Address City/[facility]/Zipcode Phone Number [facility] [address] [place] [address] CENTER Prothromin time/INR (11/04/2018 5:23 AM SEA KAYAKING GUIDE)Only the most recent of3 resultswithin the time period is included. Protime 14.9 (H) 11.7 - 14.7 seconds [facility] INR 1.2 <=5.9 [facility] Specimen Blood Narrative Performed At RECOMMENDED COUMADIN/WARFARIN INR THERAPY [facility] RANGES STANDARD DOSE: 2.0 - 3.0 Includes: PROPHYLAXIS for venous thrombosis, systemic embolization; TREATMENT for venous thrombosis and/or pulmonary embolus. HIGH RISK: Target INR is 2.5-3.5 for patients with mechanical heart valves. Performing Organization Address City/[facility] Cent[facility]ode Phone Number [address] [address] CENTER Fibrinogen (11/04/2018 5:23 AM SEA KAYAKING GUIDE)Only the most recent of2 resultswithin the time period is included. Fibrinogen 264 225 - 434 mg/dl [facility] Specimen Blood Performing Organization Address [facility] Phone Number [address] [address] [place] Blood gas, arterial (11/04/2018 2:39 AM SEA KAYAKING GUIDE)Only the most recent of8 resultswithin the time period is included. pH, Arterial 7.42 7.35 - 7.45 [facility] pCO2, Arterial 41 35 - 45 mmHg [facility] pO2, Arterial 192 (H) 80 - 90 mmHg [facility] O2 Sat, Arterial 99.3 (H) 96.0 - 97.0 % [facility] HCO3, Arterial 26 21 - 29 mmol/L [facility] Base Excess, Arterial 1.1 -2.0 - 3.0 mmol/L [facility] Patient Temperature 36.8 C [facility] FIO2 100.0 % [facility] Specimen Blood, Arterial Performing Organization Address [facility]t Phone Number [facility] [address] [address] [place] Potassium-Stat Lab (11/03/2018 8:56 PM SEA KAYAKING GUIDE)Only the most recent of4 resultswithin the time period is included. Potassium 3.7 3.6 - 5.5 meq/L [facility] Specimen Blood, Arterial Performing Organization Address [facility] Phone Number [address] [address] [place] Sodium Na-Stat Lab (11/03/2018 8:56 PM SEA KAYAKING GUIDE)Only the most recent of4 resultswithin the time period is included. Sodium 136 135 - 148 meq/L [facility] Specimen Blood, Arterial Performing Organization Address [facility] Phone Number [address] [address] [phone] [place] Glucose-Stat Lab (11/03/2018 8:56 PM SEA KAYAKING GUIDE)Only the most recent of4 resultswithin the time period is included. Glucose 107 70 - 110 mg/dL [facility] Specimen Blood, Arterial Performing Organization Address [facility] Phone Number [address] [address] CENTER HGB/HCT (H&H)-Stat Lab (11/03/2018 8:56 PM SEA KAYAKING GUIDE)Only the most recent of4 resultswithin the time period is included. Hemoglobin 9.7 (L) 13.0 - 16.8 g/dL [facility] Hematocrit 29.0 (L) 40.0 - 50.0 % [facility] Specimen Blood, Arterial Performing Organization Address [facility] Phone Number [address] [address] [phone] [place] Oxygen saturation, measured (11/03/2018 7:14 PM SEA KAYAKING GUIDE) O2 Saturation (Measured) 79.9 % [facility] Specimen Blood Performing Organization Address [facility] Phone Number [address] [address] [place] Calcium, Ionized (11/03/2018 7:14 PM SEA KAYAKING GUIDE) Calcium, Ion 1.17 1.12 - 1.27 mmol/L [facility] pH, Blood 7.29 [facility] Specimen Blood Performing Organization Address [facility] Phone Number [address] [address] [place] Lactic acid, arterial, whole blood (11/03/2018 7:14 PM SEA KAYAKING GUIDE) Lactate, Art 1.6 0.5 - 2.2 mmol/L [facility] Specimen Blood, Arterial Performing Organization Address [facility] Phone Number [address] [address] [place] ABORH, manual (11/03/2018 12:37 PM SEA KAYAKING GUIDE) ABO Grouping O [facility] Rh Factor NEG [facility] Specimen Blood - Hand, Right Performing Organization Address [facility] Phone Number [address] [address] [phone] Manual Differential (11/03/2018 11:52 AM SEA KAYAKING GUIDE) % Neutros 68 % [facility] % Lymphs 24 % [facility] % Monos 5 % [facility] % Bands 1 0 - 10 % [facility] % Atypical Lymphs 2 (H) 0 - 0 % [facility] # Neutros 10.47 (H) 1.78 - 5.38 K/ul [facility] # Lymphs 3.70 (H) 1.32 - 3.57 K/ul [facility] # Monos 0.77 0.30 - 0.82 K/uL [facility] # Bands 0.15 0.00 - 0.80 K/uL [facility] # Atypical Lymphs 0.31 (H) 0.00 - 0.00 K/uL [facility] Total Counted 100 [facility] RBC Morphology Normal [facility] WBC Morphology Normal [facility] Platelet Morphology Normal [facility] Artifact Present [facility] Platelet Conc Adequate [facility] Specimen Blood Narrative Performed At Received comment: [facility] User comments: Slide comments: Performing Organization Address City/[facility] Centercode Phone Number [address] [address] [phone] CENTER Type and screen, automated (11/03/2018 11:52 AM SEA KAYAKING GUIDE) ABO/RH AUTOMATED (BEAKER) O NEGATIVE [facility] Ab Scrn NEGATIVE [facility] Specimen Blood Performing Organization Address City/[facility]/Zipcode Phone Number [address] [address] Hemoglobin A1c (11/03/2018 11:52 AM SEA KAYAKING GUIDE) Hemoglobin A1C 5.5 4.3 - 6.1 % [facility] Specimen Blood Performing Organization Address City/State/Zipcode Phone Number [facility] [address] [place] [address] [phone] Lipid panel (11/03/2018 11:52 AM SEA KAYAKING GUIDE) Triglycerides 168 mg/dL [facility] Cholesterol 225 mg/dL [facility] HDL 45 mg/dL [facility] LDL Calculated 146 mg/dL [facility] Specimen Blood Narrative Performed At Triglyceride Reference Range: [facility] Low Risk <150 [id number] High Risk 200-499 Very High Risk>=500 Cholesterol Reference Range: Low Risk <200 [id number] High Risk>240 HDL Cholesterol Reference Range: Low Risk >=60 High Risk <40 LDL Cholesterol Reference Range: Optimal<100 Near [id number] [id number] Ozxh573-125 Very High >=190 Performing Organization Address City/State/Zipcode Phone Number [facility] [address] [place] [address] CENTER Comprehensive metabolic panel (11/03/2018 11:52 AM SEA KAYAKING GUIDE) Protein, Total 7.6 6.0 - 8.3 gm/dL [facility] Albumin 4.1 3.5 - 5.0 g/dL [facility] Alkaline Phosphatase 76 40 - 150 U/L [facility] Total Bilirubin 0.3 0.2 - 1.2 mg/dL [facility] Sodium 143 136 - 145 meq/L [facility] Potassium 3.6 3.5 - 5.1 meq/L [facility] Chloride 108 (H) 98 - 107 meq/L [facility] CO2 25 22 - 29 meq/L [facility] BUN 14 7 - 21 mg/dL [facility] Creatinine 0.74 0.57 - 1.25 mg/dL [facility] Glucose 88 70 - 105 mg/dL [facility] Calcium 9.6 8.4 - 10.2 mg/dL [facility] AST 17 5 - 34 U/L [facility] ALT 18 6 - 55 U/L [facility] EGFR 132Comment: ESTIMATED mL/min/1.73 sq m [facility] GFR IS NOT ACCURATE [facility] CREATININE CLEARANCE IN PREDICTING GLOMERULAR FILTRATION RATE. ESTIMATED GFR IS NOT APPLICABLE FOR DIALYSIS PATIENTS. Specimen Blood Performing Organization Address City/[facility]/Zipcode Phone Number [address] [address] [place] POC ACTIVATED CLOTTING TIME (11/03/2018 10:55 AM SEA KAYAKING GUIDE)Only the most recent of4 resultswithin the time period is included. Activated Clotting Time 98Comment: TESTED AT sec [address] [address] Specimen Blood Performing Organization Address [facility] Phone Number [address] [address] [place] Electrocardiogram, 12-lead (11/03/2018 10:45 AM SEA KAYAKING GUIDE) Narrative Performed At Ventricular Rate 51 BPM GE MUSE Atrial Rate 51 BPM P-R Interval 132 ms QRS Duration 94 ms Q-T Interval 470 ms QTC Calculation(Bazett) 433 ms P Barbeau 8 degrees R Barbeau 17 degrees T Barbeau 35 degrees Sinus bradycardia Within normal limits No previous ECGs available Confirmed by MD Campos Roberto ([id number]) on 11/03/2018 2:14:48 PM Procedure Note Interface, External Ris In - 11/03/2018 2:15 PM SEA KAYAKING GUIDE Ventricular Rate 51 BPM Atrial Rate 51 BPM P-R Interval 132 ms QRS Duration 94 ms Q-T Interval 470 ms QTC Calculation(Bazett) 433 ms P Barbeau 8 degrees R Barbeau 17 degrees T Barbeau 35 degrees Sinus bradycardia Within normal limits No previous ECGs available Confirmed by MD Campos Roberto ([id number]) on 11/03/2018 2:14:48 PM Performing Organization Address City/State/Zipcode Phone Number GE MUSE after 11/09/2017 Insurance Payer Benefit Plan / Subscriber ID Type Phone Address Group BLUE CROSS/BLUE BCBS PPO POS EPO xxxxxxxxxxxx PPO [phone] [address] [place] [address] Advance Directives For more information, please contact:[place] [address] [address] [place], [place] [phone] Code Status Date Activated Date Inactivated Comments Full Code 11/03/2018 10:42 AM 11/08/2018 7:20 PM This code status was determined by: Patient
--- OUTSIDE RECORDS SUMMARY | 2018-11-10 20:32 | XMS REPORT ---
:1960 [facility] Address [address] [place] [address] Care Team Providers Name Role Phone LOWELL MENDEZ (WILLIS) NONA Unavailable Unavailable Problems This patient has no known problems. Allergies, Adverse Reactions, Alerts This patient has no known allergies or adverse reactions. Medications This patient has no known medications. Results Test Description Test Time Test Comments Text Results Atomic Results Result Comments MAGNESIUM 2018-11-08 05:26:00 Test Item Value Reference Range Comments MAGNESIUM (BEAKER) (test fhjw=583) 1.7 mg/dL 1.6-2.6 BASIC METABOLIC [id number] 05:26:00 Test Item Value Reference Range Comments SODIUM (BEAKER) (test 137 meq/L 136-145 exdg=954) POTASSIUM (BEAKER) (test 3.7 meq/L 3.5-5.1 mirb=655) CHLORIDE (BEAKER) (test 100 meq/L 98-107 ylms=568) CO2 (BEAKER) (test 25 meq/L 22-29 rgoq=716) BLOOD UREA NITROGEN 13 mg/dL 7-21 (BEAKER) (test vysm=341) CREATININE (BEAKER) (test 0.71 mg/dL 0.57-1.25 ptxc=627) GLUCOSE RANDOM (BEAKER) 99 mg/dL 70-105 (test ouhy=190) CALCIUM (BEAKER) (test 9.1 mg/dL 8.4-10.2 xkmi=268) EGFR (BEAKER) (test 139 mL/min/1.73 sq m ESTIMATED GFR IS NOT cicl=9052) ACCURATE CREATININE CLEARANCE IN PREDICTING GLOMERULAR FILTRATION RATE. ESTIMATED GFR IS NOT APPLICABLE FOR DIALYSIS PATIENTS. CBC W/PLT COUNT & AUTO [id number] 05:04:00 Test Item Value Reference Range Comments WHITE BLOOD CELL COUNT (BEAKER) (test ycoh=737) 11.5 K/ L 3.5-10.5 RED BLOOD CELL COUNT (BEAKER) (test nvhg=423) 3.19 M/ L 4.63-6.08 HEMOGLOBIN (BEAKER) (test ckqz=806) 9.4 GM/DL 13.7-17.5 HEMATOCRIT (BEAKER) (test mkje=323) 29.0 % 40.1-51.0 MEAN CORPUSCULAR VOLUME (BEAKER) (test mgml=331) 90.9 fL 79.0-92.2 MEAN CORPUSCULAR HEMOGLOBIN (BEAKER) (test 29.5 pg 25.7-32.2 jmko=124) MEAN CORPUSCULAR HEMOGLOBIN CONC (BEAKER) (test 32.4 GM/DL 32.3-36.5 jstk=809) RED CELL DISTRIBUTION WIDTH (BEAKER) (test 12.9 % 11.6-14.4 lspj=907) PLATELET COUNT (BEAKER) (test vhni=465) 310 K/CU MM 150-450 MEAN PLATELET VOLUME (BEAKER) (test wpfz=901) 10.3 fL 9.4-12.4 NUCLEATED RED BLOOD CELLS (BEAKER) (test 0 /100 WBC 0-0 ibdx=201) NEUTROPHILS RELATIVE PERCENT (BEAKER) (test 65 % hhmi=935) LYMPHOCYTES RELATIVE PERCENT (BEAKER) (test 21 % cane=400) MONOCYTES RELATIVE PERCENT (BEAKER) (test 9 % qghl=202) EOSINOPHILS RELATIVE PERCENT (BEAKER) (test 4 % mfiu=007) BASOPHILS RELATIVE PERCENT (BEAKER) (test 0 % ynpl=397) NEUTROPHILS ABSOLUTE COUNT (BEAKER) (test 7.47 K/ L 1.78-5.38 hett=578) LYMPHOCYTES ABSOLUTE COUNT (BEAKER) (test 2.39 K/ L 1.32-3.57 daab=270) MONOCYTES ABSOLUTE COUNT (BEAKER) (test 1.08 K/ L 0.30-0.82 rqpk=812) EOSINOPHILS ABSOLUTE COUNT (BEAKER) (test 0.42 K/ L 0.04-0.54 nfty=757) BASOPHILS ABSOLUTE COUNT (BEAKER) (test 0.04 K/ L 0.01-0.08 fctc=676) IMMATURE GRANULOCYTES-RELATIVE PERCENT (BEAKER) 1 % 0-1 (test tiyz=2144) POCT-GLUCOSE [id number] 21:14:00 Test Item Value Reference Range Comments POC-GLUCOSE METER (BEAKER) 116 mg/dL 70-110 TESTED AT [facility] [address] [facility] (test pfuk=9058) [facility] [address] POCT-GLUCOSE [id number] 08:19:00 Test Item Value Reference Range Comments POC-GLUCOSE METER (BEAKER) 115 mg/dL 70-110 TESTED AT [place] [id number] [facility] (test xqty=4714) [facility] [address] [id number] 07:32:00 Test Item Value Reference Range Comments MAGNESIUM (BEAKER) (test crvj=179) 1.9 mg/dL 1.6-2.6 BASIC METABOLIC [id number] 07:32:00 Test Item Value Reference Range Comments SODIUM (BEAKER) (test 138 meq/L 136-145 krgz=992) POTASSIUM (BEAKER) (test 3.6 meq/L 3.5-5.1 vpgz=282) CHLORIDE (BEAKER) (test 100 meq/L 98-107 bzzn=719) CO2 (BEAKER) (test 27 meq/L 22-29 adln=532) BLOOD UREA NITROGEN 11 mg/dL 7-21 (BEAKER) (test lcqk=993) CREATININE (BEAKER) (test 0.62 mg/dL 0.57-1.25 komt=761) GLUCOSE RANDOM (BEAKER) 88 mg/dL 70-105 (test smnd=231) CALCIUM (BEAKER) (test 8.7 mg/dL 8.4-10.2 yfug=944) EGFR (BEAKER) (test 162 mL/min/1.73 sq m ESTIMATED GFR IS NOT uvwy=3442) ACCURATE CREATININE CLEARANCE IN PREDICTING GLOMERULAR FILTRATION RATE. ESTIMATED GFR IS NOT APPLICABLE FOR DIALYSIS PATIENTS. CBC W/PLT COUNT & AUTO [id number] 06:56:00 Test Item Value Reference Range Comments WHITE BLOOD CELL COUNT (BEAKER) (test pprj=179) 11.5 K/ L 3.5-10.5 RED BLOOD CELL COUNT (BEAKER) (test owip=019) 3.15 M/ L 4.63-6.08 HEMOGLOBIN (BEAKER) (test qcba=123) 9.5 GM/DL 13.7-17.5 HEMATOCRIT (BEAKER) (test ypye=435) 28.6 % 40.1-51.0 MEAN CORPUSCULAR VOLUME (BEAKER) (test bbha=547) 90.8 fL 79.0-92.2 MEAN CORPUSCULAR HEMOGLOBIN (BEAKER) (test 30.2 pg 25.7-32.2 scoe=817) MEAN CORPUSCULAR HEMOGLOBIN CONC (BEAKER) (test 33.2 GM/DL 32.3-36.5 hipr=978) RED CELL DISTRIBUTION WIDTH (BEAKER) (test 13.2 % 11.6-14.4 ithv=041) PLATELET COUNT (BEAKER) (test ttmi=905) 262 K/CU MM 150-450 MEAN PLATELET VOLUME (BEAKER) (test odid=747) 10.7 fL 9.4-12.4 NUCLEATED RED BLOOD CELLS (BEAKER) (test 0 /100 WBC 0-0 dypf=669) NEUTROPHILS RELATIVE PERCENT (BEAKER) (test 63 % ytfk=298) LYMPHOCYTES RELATIVE PERCENT (BEAKER) (test 22 % khad=640) MONOCYTES RELATIVE PERCENT (BEAKER) (test 11 % tdod=723) EOSINOPHILS RELATIVE PERCENT (BEAKER) (test 4 % ivlu=832) BASOPHILS RELATIVE PERCENT (BEAKER) (test 0 % bbnr=803) NEUTROPHILS ABSOLUTE COUNT (BEAKER) (test 7.21 K/ L 1.78-5.38 rogm=419) LYMPHOCYTES ABSOLUTE COUNT (BEAKER) (test 2.53 K/ L 1.32-3.57 dohy=722) MONOCYTES ABSOLUTE COUNT (BEAKER) (test 1.21 K/ L 0.30-0.82 nrst=333) EOSINOPHILS ABSOLUTE COUNT (BEAKER) (test 0.42 K/ L 0.04-0.54 kden=255) BASOPHILS ABSOLUTE COUNT (BEAKER) (test 0.03 K/ L 0.01-0.08 teit=325) IMMATURE GRANULOCYTES-RELATIVE PERCENT (BEAKER) 0 % 0-1 (test tdri=6791) POCT-GLUCOSE [id number] 21:59:00 Test Item Value Reference Range Comments POC-GLUCOSE METER (BEAKER) 104 mg/dL 70-110 TESTED AT [facility] [address] [facility] (test aiui=5627) [facility] [address] POCT-GLUCOSE [id number] 13:02:00 Test Item Value Reference Range Comments POC-GLUCOSE METER (BEAKER) 130 mg/dL 70-110 TESTED AT [address] (test cpii=2519) [facility] [address] RAD, CHEST, 1 VIEW, NON [id number] 08:37:00Reason for exam:->pl effusionShould this be performed at the bedside?->YesFINAL REPORT INDICATION: pl effusion COMPARISON:November 05 TECHNIQUE: Chest radiograph, single view, portable technique. FINDINGS / IMPRESSION: Right internal jugular line and chesttubes are removed. Patient is status post recent coronary artery bypass surgery. Left hemidiaphragm is elevated with left lung mostly linear opacities probably related atelectasis. Pulmonary veins are not engorged. No apical cap or pneumothorax demonstrated. Signed: Amie Edwards MDReport Verified Date/Time: 11/06/2018 08:37:04 Reading Location: [address] Ortho Consult Reading Room POCT-GLUCOSE [id number] 08:29:00 Test Item Value Reference Range Comments POC-GLUCOSE METER (BEAKER) 115 mg/dL 70-110 TESTED AT [address] (test zjch=5012) [place] [id number] CBC W/PLT COUNT & AUTO [id number] 07:26:00 Test Item Value Reference Range Comments WHITE BLOOD CELL COUNT (BEAKER) (test bsdg=813) 14.9 K/ L 3.5-10.5 RED BLOOD CELL COUNT (BEAKER) (test fofk=944) 3.27 M/ L 4.63-6.08 HEMOGLOBIN (BEAKER) (test zqlz=941) 9.8 GM/DL 13.7-17.5 HEMATOCRIT (BEAKER) (test yvgn=638) 30.5 % 40.1-51.0 MEAN CORPUSCULAR VOLUME (BEAKER) (test ztth=237) 93.3 fL 79.0-92.2 MEAN CORPUSCULAR HEMOGLOBIN (BEAKER) (test 30.0 pg 25.7-32.2 gbph=824) MEAN CORPUSCULAR HEMOGLOBIN CONC (BEAKER) (test 32.1 GM/DL 32.3-36.5 yvnp=982) RED CELL DISTRIBUTION WIDTH (BEAKER) (test 13.1 % 11.6-14.4 icvw=214) PLATELET COUNT (BEAKER) (test cnxg=454) 210 K/CU MM 150-450 MEAN PLATELET VOLUME (BEAKER) (test ddtk=056) 10.5 fL 9.4-12.4 NUCLEATED RED BLOOD CELLS (BEAKER) (test 0 /100 WBC 0-0 lpir=062) NEUTROPHILS RELATIVE PERCENT (BEAKER) (test 75 % wwpk=107) LYMPHOCYTES RELATIVE PERCENT (BEAKER) (test 13 % zozp=984) MONOCYTES RELATIVE PERCENT (BEAKER) (test 10 % yhdw=616) EOSINOPHILS RELATIVE PERCENT (BEAKER) (test 1 % rkpj=130) BASOPHILS RELATIVE PERCENT (BEAKER) (test 0 % phco=764) NEUTROPHILS ABSOLUTE COUNT (BEAKER) (test 11.14 K/ L 1.78-5.38 sjor=161) LYMPHOCYTES ABSOLUTE COUNT (BEAKER) (test 1.93 K/ L 1.32-3.57 ttdy=689) MONOCYTES ABSOLUTE COUNT (BEAKER) (test 1.48 K/ L 0.30-0.82 teix=736) EOSINOPHILS ABSOLUTE COUNT (BEAKER) (test 0.21 K/ L 0.04-0.54 vjdt=823) BASOPHILS ABSOLUTE COUNT (BEAKER) (test 0.04 K/ L 0.01-0.08 hdpv=852) IMMATURE GRANULOCYTES-RELATIVE PERCENT (BEAKER) 1 % 0-1 (test jprf=9744) BASIC METABOLIC [id number] 07:03:00 Test Item Value Reference Range Comments SODIUM (BEAKER) (test 136 meq/L 136-145 pudq=184) POTASSIUM (BEAKER) (test 3.8 meq/L 3.5-5.1 fqfm=749) CHLORIDE (BEAKER) (test 100 meq/L 98-107 pabm=749) CO2 (BEAKER) (test 27 meq/L 22-29 pprm=350) BLOOD UREA NITROGEN 10 mg/dL 7-21 (BEAKER) (test ofxf=716) CREATININE (BEAKER) (test 0.68 mg/dL 0.57-1.25 lbui=057) GLUCOSE RANDOM (BEAKER) 102 mg/dL 70-105 (test mdny=838) CALCIUM (BEAKER) (test 9.1 mg/dL 8.4-10.2 lmln=807) EGFR (BEAKER) (test 146 mL/min/1.73 sq m ESTIMATED GFR IS NOT arhc=5496) ACCURATE CREATININE CLEARANCE IN PREDICTING GLOMERULAR FILTRATION RATE. ESTIMATED GFR IS NOT APPLICABLE FOR DIALYSIS PATIENTS. POCT-GLUCOSE [id number] 21:46:00 Test Item Value Reference Range Comments POC-GLUCOSE METER (BEAKER) 137 mg/dL 70-110 TESTED AT [address] (test jpus=2169) [place] [address] RAD, CHEST, 1 VIEW, NON [id number] 11:37:00Reason for exam:-> EffusionShould this be performed at the bedside?->YesFINAL REPORT AP chest HISTORY: Effusion. COMPARISON: 11/04/2018. IMPRESSION: Supportive lines unchanged. Mild interstitial prominence. No large effusion. No pneumothorax. Signed: Amauri Eduardo MDReport Verified Date/Time: 11/05/2018 11:37:34 Reading Location: [address] Transitional Reading Room POCT-GLUCOSE [id number] 06:18:00 Test Item Value Reference Range Comments POC-GLUCOSE METER (BEAKER) 113 mg/dL 70-110 TESTED AT [address] (test dfgh=2598) [place] [address] [id number] 04:02:00 Test Item Value Reference Range Comments PHOSPHORUS (BEAKER) (test ivtf=617) 2.5 mg/dL 2.3-4.7 [id number] 04:02:00 Test Item Value Reference Range Comments MAGNESIUM (BEAKER) (test qlxj=438) 1.9 mg/dL 1.6-2.6 BASIC METABOLIC [id number] 04:02:00 Test Item Value Reference Range Comments SODIUM (BEAKER) (test 134 meq/L 136-145 zmtz=834) POTASSIUM (BEAKER) (test 4.1 meq/L 3.5-5.1 oiaj=906) CHLORIDE (BEAKER) (test 103 meq/L 98-107 rdjn=180) CO2 (BEAKER) (test 25 meq/L 22-29 nrhy=658) BLOOD UREA NITROGEN 9 mg/dL 7-21 (BEAKER) (test pbfz=415) CREATININE (BEAKER) (test 0.70 mg/dL 0.57-1.25 nbau=825) GLUCOSE RANDOM (BEAKER) 109 mg/dL 70-105 (test pxjd=185) CALCIUM (BEAKER) (test 8.4 mg/dL 8.4-10.2 mqrb=381) EGFR (BEAKER) (test 141 mL/min/1.73 sq m ESTIMATED GFR IS NOT jukz=6130) ACCURATE CREATININE CLEARANCE IN PREDICTING GLOMERULAR FILTRATION RATE. ESTIMATED GFR IS NOT APPLICABLE FOR DIALYSIS PATIENTS. CBC (HEMOGRAM ONLY)2018-11-05 03:33:00 Test Item Value Reference Range Comments WHITE BLOOD CELL COUNT (BEAKER) (test kgmq=923) 18.8 K/ L 3.5-10.5 RED BLOOD CELL COUNT (BEAKER) (test fyak=101) 3.32 M/ L 4.63-6.08 HEMOGLOBIN (BEAKER) (test hnmi=585) 10.0 GM/DL 13.7-17.5 HEMATOCRIT (BEAKER) (test wpia=157) 30.4 % 40.1-51.0 MEAN CORPUSCULAR VOLUME (BEAKER) (test jxee=060) 91.6 fL 79.0-92.2 MEAN CORPUSCULAR HEMOGLOBIN (BEAKER) (test 30.1 pg 25.7-32.2 wrkj=603) MEAN CORPUSCULAR HEMOGLOBIN CONC (BEAKER) (test 32.9 GM/DL 32.3-36.5 fvwe=189) RED CELL DISTRIBUTION WIDTH (BEAKER) (test 13.1 % 11.6-14.4 eiko=622) PLATELET COUNT (BEAKER) (test tfza=183) 190 K/CU MM 150-450 MEAN PLATELET VOLUME (BEAKER) (test ldge=393) 10.3 fL 9.4-12.4 NUCLEATED RED BLOOD CELLS (BEAKER) (test 0 /100 WBC 0-0 hthw=928) [id number] 15:02:00 Test Item Value Reference Range Comments MAGNESIUM (BEAKER) (test ksnv=873) 2.4 mg/dL 1.6-2.6 Check Serum Magnesium level 2 hours after IV magnesium replacement.POCT-GLUCOSE [id number] 13:14:00 Test Item Value Reference Range Comments POC-GLUCOSE METER (BEAKER) 120 mg/dL 70-110 TESTED AT [address] (test hetl=4689) [place] [id number] HEMOGLOBIN [id number] 11:10:00 Test Item Value Reference Range Comments HEMOGLOBIN A1C (BEAKER) (test ullc=559) 5.5 % 4.3-6.1 RAD, CHEST, 1 VIEW, NON [id number] 07:17:00while patient is intubated or has chest tubes.Reason for exam:->Status post CV SurgeryShould thisbe performed at the bedside?->YesFINAL REPORT INDICATION : Status post CV Surgery COMPARISON:November 03 at 7:04 PMTECHNIQUE: Chest radiograph, single view, portable technique. FINDINGS / IMPRESSION: Endotracheal tube and nasogastric tube are removed. Other support lines and tubes unchanged. Stable widening of the mid mediastinum likely postoperative edema. No apical cap. No pneumothorax. Left retrocardiac opacitylikely pleural fluid and related atelectasis. Signed: Amie Edwards MDReport Verified Date/ Time:11/04/2018 07:17:57 Reading Location: [facility] Radiology Reading Room POCT-GLUCOSE [id number] 06:31:00 Test Item Value Reference Range Comments POC-GLUCOSE METER (BEAKER) 125 mg/dL 70-110 TESTED AT [address] (test ccfn=9571) [place] [address] [id number] 06:26:00 Test Item Value Reference Range Comments ACTIVATED CLOTTING TIME (BEAKER) 98 sec TESTED AT [address] (test mscx=556) [place] [address] [id number] 06:26:00 Test Item Value Reference Range Comments ACTIVATED CLOTTING TIME 400 sec TESTED AT [place] [address] [address] (BEAKER) (test kulu=608) [place] [address] [id number] 06:26:00 Test Item Value Reference Range Comments ACTIVATED CLOTTING TIME 406 sec TESTED AT [place] [address] [address] (BEAKER) (test vmia=364) [place] [address] [id number] 06:26:00 Test Item Value Reference Range Comments ACTIVATED CLOTTING TIME 439 sec TESTED AT [facility] [address] (BEAKER) (test ckct=643) [facility] [address] [id number] 06:13:00 Test Item Value Reference Range Comments FIBRINOGEN LEVEL (BEAKER) (test ejnz=343) 264 mg/dl 225-434 [id number] 06:13:00 Test Item Value Reference Range Comments PARTIAL THROMBOPLASTIN TIME (BEAKER) (test 32.3 seconds 22.5-36.0 kwxu=221) PROTHROMBIN [id number] 06:12:00 Test Item Value Reference Range Comments PROTIME (BEAKER) (test hlge=953) 14.9 seconds 11.7-14.7 INR (BEAKER) (test pewb=101) 1.2 <=5.9 RECOMMENDED COUMADIN/WARFARIN INR THERAPY RANGESSTANDARD DOSE: 2.0 - 3.0 Includes: PROPHYLAXIS forvenous thrombosis, systemic embolization; TREATMENT for venous thrombosis and/or pulmonary embolus.HIGH RISK: Target INR is 2.5-3.5 for patients with mechanical heart valves.BASIC METABOLIC [id number] 03:03: 00 Test Item Value Reference Range Comments SODIUM (BEAKER) (test 141 meq/L 136-145 fyqy=480) POTASSIUM (BEAKER) (test 4.0 meq/L 3.5-5.1 ulkv=854) CHLORIDE (BEAKER) (test 110 meq/L 98-107 pwxr=460) CO2 (BEAKER) (test 24 meq/L 22-29 kaxz=572) BLOOD UREA NITROGEN 11 mg/dL 7-21 (BEAKER) (test kupr=888) CREATININE (BEAKER) (test 0.67 mg/dL 0.57-1.25 djyb=785) GLUCOSE RANDOM (BEAKER) 125 mg/dL 70-105 (test izzu=814) CALCIUM (BEAKER) (test 7.5 mg/dL 8.4-10.2 ebqn=833) EGFR (BEAKER) (test 148 mL/min/1.73 sq m ESTIMATED GFR IS NOT jdbb=0669) ACCURATE CREATININE CLEARANCE IN PREDICTING GLOMERULAR FILTRATION RATE. ESTIMATED GFR IS NOT APPLICABLE FOR DIALYSIS PATIENTS. [id number] 03:00:00 Test Item Value Reference Range Comments PHOSPHORUS (BEAKER) (test rhxd=142) 2.8 mg/dL 2.3-4.7 [id number] 03:00:00 Test Item Value Reference Range Comments MAGNESIUM (BEAKER) (test iwhd=605) 2.1 mg/dL 1.6-2.6 BLOOD GAS, [id number] 02:53:00 Test Item Value Reference Range Comments PH ARTERIAL (BEAKER) (test jvkq=098) 7.42 7.35-7.45 PCO2 ARTERIAL (BEAKER) (test pzdh=941) 41 mmHg 35-45 PO2 ARTERIAL (BEAKER) (test mugf=413) 192 mmHg 80-90 O2 SATURATION ARTERIAL (BEAKER) (test qxbx=570) 99.3 % 96.0-97.0 HCO3 ARTERIAL (BEAKER) (test qvhw=982) 26 mmol/L 21-29 BASE EXCESS ARTERIAL (BEAKER) (test olzm=827) 1.1 mmol/L -2.0-3.0 PATIENT TEMPERATURE (BEAKER) (test csvy=1848) 36.8 C FIO2 (BEAKER) (test epkj=5255) 100.0 % CBC (HEMOGRAM ONLY)2018-11-04 02:47:00 Test Item Value Reference Range Comments WHITE BLOOD CELL COUNT (BEAKER) (test eoab=656) 16.1 K/ L 3.5-10.5 RED BLOOD CELL COUNT (BEAKER) (test kzwj=975) 3.28 M/ L 4.63-6.08 HEMOGLOBIN (BEAKER) (test zftm=063) 9.9 GM/DL 13.7-17.5 HEMATOCRIT (BEAKER) (test lnda=133) 30.4 % 40.1-51.0 MEAN CORPUSCULAR VOLUME (BEAKER) (test ddia=878) 92.7 fL 79.0-92.2 MEAN CORPUSCULAR HEMOGLOBIN (BEAKER) (test 30.2 pg 25.7-32.2 twea=894) MEAN CORPUSCULAR HEMOGLOBIN CONC (BEAKER) (test 32.6 GM/DL 32.3-36.5 jewk=441) RED CELL DISTRIBUTION WIDTH (BEAKER) (test 13.3 % 11.6-14.4 csng=229) PLATELET COUNT (BEAKER) (test aawe=514) 214 K/CU MM 150-450 MEAN PLATELET VOLUME (BEAKER) (test fyuz=234) 9.7 fL 9.4-12.4 NUCLEATED RED BLOOD CELLS (BEAKER) (test 0 /100 WBC 0-0 bqtc=798) POCT-GLUCOSE [id number] 00:03:00 Test Item Value Reference Range Comments POC-GLUCOSE METER (BEAKER) 159 mg/dL 70-110 TESTED AT [facility] [address] [facility] (test spbz=0039) [facility] [address] BLOOD GAS, [id number] 22:48:00 Test Item Value Reference Range Comments PH ARTERIAL (BEAKER) (test pvvl=161) 7.41 7.35-7.45 PCO2 ARTERIAL (BEAKER) (test ehmj=832) 35 mmHg 35-45 PO2 ARTERIAL (BEAKER) (test isft=560) 69 mmHg 80-90 O2 SATURATION ARTERIAL (BEAKER) (test zayj=650) 95.0 % 96.0-97.0 HCO3 ARTERIAL (BEAKER) (test ielu=444) 22 mmol/L 21-29 BASE EXCESS ARTERIAL (BEAKER) (test gfvx=276) -2.6 mmol/L -2.0-3.0 PATIENT TEMPERATURE (BEAKER) (test jgjc=6028) 35.7 C FIO2 (BEAKER) (test xfny=2563) 80.0 % BLOOD GAS, [id number] 22:01:00 Test Item Value Reference Range Comments PH ARTERIAL (BEAKER) (test yclw=499) 7.33 7.35-7.45 PCO2 ARTERIAL (BEAKER) (test cpey=101) 42 mmHg 35-45 PO2 ARTERIAL (BEAKER) (test lmlo=351) 64 mmHg 80-90 O2 SATURATION ARTERIAL (BEAKER) (test bdju=427) 93.1 % 96.0-97.0 HCO3 ARTERIAL (BEAKER) (test lsvy=934) 22 mmol/L 21-29 BASE EXCESS ARTERIAL (BEAKER) (test mkkb=514) -4.7 mmol/L -2.0-3.0 PATIENT TEMPERATURE (BEAKER) (test qmow=9619) 35.1 C FIO2 (BEAKER) (test sgxu=5155) 40.0 % BLOOD GAS, [id number] 21:01:00 Test Item Value Reference Range Comments PH ARTERIAL (BEAKER) (test zvhq=968) 7.40 7.35-7.45 PCO2 ARTERIAL (BEAKER) (test mqjk=444) 41 mmHg 35-45 PO2 ARTERIAL (BEAKER) (test eday=870) 66 mmHg 80-90 O2 SATURATION ARTERIAL (BEAKER) (test clqw=704) 95.1 % 96.0-97.0 HCO3 ARTERIAL (BEAKER) (test cdwn=157) 25 mmol/L 21-29 BASE EXCESS ARTERIAL (BEAKER) (test yrxc=811) -0.2 mmol/L -2.0-3.0 PATIENT TEMPERATURE (BEAKER) (test zjhs=9078) 34.4 C FIO2 (BEAKER) (test rbfh=2776) 50.0 % HGB/HCT (H&H) - STAT [id number] 21:01:00 Test Item Value Reference Range Comments HEMOGLOBIN (BEAKER) (test ygrj=290) 9.7 g/dL 13.0-16.8 HEMATOCRIT (BEAKER) (test gwde=521) 29.0 % 40.0-50.0 GLUCOSE-STAT [id number] 20:59:00 Test Item Value Reference Range Comments GLUCOSE RANDOM (BEAKER) (test khoi=920) 107 mg/dL 70-110 SODIUM NA-STAT [id number] 20:59:00 Test Item Value Reference Range Comments SODIUM (BEAKER) (test zmir=685) 136 meq/L 135-148 POTASSIUM-STAT [id number] 20:59:00 Test Item Value Reference Range Comments POTASSIUM (BEAKER) (test vpyj=240) 3.7 meq/L 3.6-5.5 PROTHROMBIN [id number] 20:13:00 Test Item Value Reference Range Comments PROTIME (BEAKER) (test mosu=865) 18.1 seconds 11.7-14.7 INR (BEAKER) (test gkxu=571) 1.5 <=5.9 RECOMMENDED COUMADIN/WARFARIN INR THERAPY RANGESSTANDARD DOSE: 2.0 - 3.0 Includes: PROPHYLAXIS forvenous thrombosis, systemic embolization; TREATMENT for venous thrombosis and/or pulmonary embolus.HIGH RISK: Target INR is 2.5-3.5 for patients with mechanical heart valves.[id number] 20:13:00 Test Item Value Reference Range Comments PARTIAL THROMBOPLASTIN TIME (BEAKER) (test 28.3 seconds 22.5-36.0 kmih=615) [id number] 20:13:00 Test Item Value Reference Range Comments FIBRINOGEN LEVEL (BEAKER) (test waft=051) 194 mg/dl 225-434 BASIC METABOLIC [id number] 19:57:00 Test Item Value Reference Range Comments SODIUM (BEAKER) (test 142 meq/L 136-145 qjkb=678) POTASSIUM (BEAKER) (test 3.7 meq/L 3.5-5.1 kkle=576) CHLORIDE (BEAKER) (test 111 meq/L 98-107 fzhh=458) CO2 (BEAKER) (test 24 meq/L 22-29 wkgk=364) BLOOD UREA NITROGEN 13 mg/dL 7-21 (BEAKER) (test qixu=853) CREATININE (BEAKER) (test 0.70 mg/dL 0.57-1.25 mwyw=980) GLUCOSE RANDOM (BEAKER) 139 mg/dL 70-105 (test ukfg=460) CALCIUM (BEAKER) (test 8.5 mg/dL 8.4-10.2 hngk=769) EGFR (BEAKER) (test 141 mL/min/1.73 sq m ESTIMATED GFR IS NOT sqhj=1165) ACCURATE CREATININE CLEARANCE IN PREDICTING GLOMERULAR FILTRATION RATE. ESTIMATED GFR IS NOT APPLICABLE FOR DIALYSIS PATIENTS. [id number] 19:53:00 Test Item Value Reference Range Comments PHOSPHORUS (BEAKER) (test jprl=595) 3.2 mg/dL 2.3-4.7 [id number] 19:53:00 Test Item Value Reference Range Comments MAGNESIUM (BEAKER) (test xusl=370) 2.4 mg/dL 1.6-2.6 CBC W/PLT COUNT & AUTO [id number] 19:50:00 Test Item Value Reference Range Comments WHITE BLOOD CELL COUNT (BEAKER) (test mfaq=514) 23.7 K/ L 3.5-10.5 RED BLOOD CELL COUNT (BEAKER) (test idzq=169) 3.73 M/ L 4.63-6.08 HEMOGLOBIN (BEAKER) (test nghq=791) 11.2 GM/DL 13.7-17.5 HEMATOCRIT (BEAKER) (test ehaf=648) 34.8 % 40.1-51.0 MEAN CORPUSCULAR VOLUME (BEAKER) (test asyo=954) 93.3 fL 79.0-92.2 MEAN CORPUSCULAR HEMOGLOBIN (BEAKER) (test 30.0 pg 25.7-32.2 dszl=924) MEAN CORPUSCULAR HEMOGLOBIN CONC (BEAKER) (test 32.2 GM/DL 32.3-36.5 zifs=631) RED CELL DISTRIBUTION WIDTH (BEAKER) (test 13.1 % 11.6-14.4 zcdw=196) PLATELET COUNT (BEAKER) (test mzfs=540) 225 K/CU MM 150-450 MEAN PLATELET VOLUME (BEAKER) (test qhbk=219) 10.2 fL 9.4-12.4 NUCLEATED RED BLOOD CELLS (BEAKER) (test 0 /100 WBC 0-0 qccw=689) NEUTROPHILS RELATIVE PERCENT (BEAKER) (test 75 % cjoa=155) LYMPHOCYTES RELATIVE PERCENT (BEAKER) (test 18 % sthh=631) MONOCYTES RELATIVE PERCENT (BEAKER) (test 6 % pkan=628) EOSINOPHILS RELATIVE PERCENT (BEAKER) (test 1 % awsu=689) BASOPHILS RELATIVE PERCENT (BEAKER) (test 0 % snyt=649) NEUTROPHILS ABSOLUTE COUNT (BEAKER) (test 17.66 K/ L 1.78-5.38 sgil=104) LYMPHOCYTES ABSOLUTE COUNT (BEAKER) (test 4.16 K/ L 1.32-3.57 cxow=097) MONOCYTES ABSOLUTE COUNT (BEAKER) (test 1.37 K/ L 0.30-0.82 clyu=497) EOSINOPHILS ABSOLUTE COUNT (BEAKER) (test 0.15 K/ L 0.04-0.54 ltlp=650) BASOPHILS ABSOLUTE COUNT (BEAKER) (test 0.06 K/ L 0.01-0.08 wwir=202) IMMATURE GRANULOCYTES-RELATIVE PERCENT (BEAKER) 1 % 0-1 (test otbt=2472) BLOOD GAS, [id number] 19:46:00 Test Item Value Reference Range Comments PH ARTERIAL (BEAKER) (test kyzj=388) 7.37 7.35-7.45 PCO2 ARTERIAL (BEAKER) (test nkqn=052) 44 mmHg 35-45 PO2 ARTERIAL (BEAKER) (test jvpx=655) 89 mmHg 80-90 O2 SATURATION ARTERIAL (BEAKER) (test byia=361) 97.0 % 96.0-97.0 HCO3 ARTERIAL (BEAKER) (test ynth=896) 25 mmol/L 21-29 BASE EXCESS ARTERIAL (BEAKER) (test vrjr=164) -0.6 mmol/L -2.0-3.0 PATIENT TEMPERATURE (BEAKER) (test akdz=3549) 35.7 C FIO2 (BEAKER) (test vbaj=3166) 60.0 % RAD, CHEST, 1 VIEW, NON [id number] 19:36:00Reason for exam:->Status post CV Surgery post op day 0Should this be performed at the bedside?->YesFINAL REPORT Portable chest. MEDICAL HISTORY: Status post CT surgery, postop day zero. Comparison study: November 03, 2018. FINDINGS: The cardiac size is enlarged. The patient is status post sternotomy. The aorta is tortuous. An endotracheal tube is in place, the tip approximately 4.7 cm above the sherry. Bilateral chest tubes, a nasogastric tube and right-sided jugular line are seen. There are increased interstitial markings. No pleural effusion or pneumothorax is noted. IMPRESSION: Postsurgical changes as detailed above. Signed: Luis Hays MDReport Verified Date/Time: 11/03/2018 19:36:24 Reading Location: [address] Ortho Consult Reading Room Electronically signedby: LUIS HAYS M.D. on 11/03/2018 07:36 PMLACTIC ACID, ARTERIAL, WHOLE [id number] 19:35:00 Test Item Value Reference Range Comments LACTATE BLOOD ARTERIAL (2) (BEAKER) (test 1.6 mmol/L 0.5-2.2 eucn=2944) CALCIUM, [id number] 19:24:00 Test Item Value Reference Range Comments CALCIUM IONIZED (BEAKER) (test oral=249) 1.17 mmol/L 1.12-1.27 PH, BLOOD (BEAKER) (test exrf=1545) 7.29 OXYGEN SATURATION, [id number] 19:23:00 Test Item Value Reference Range Comments O2 SATURATION (MEASURED) (BEAKER) (test kowa=3335) 79.9 % BLOOD GAS, [id number] 16:41:00 Test Item Value Reference Range Comments PH ARTERIAL (BEAKER) (test hjpn=740) 7.42 7.35-7.45 PCO2 ARTERIAL (BEAKER) (test brgi=244) 40 mmHg 35-45 PO2 ARTERIAL (BEAKER) (test olvy=705) 370 mmHg 80-90 O2 SATURATION ARTERIAL (BEAKER) (test diaz=323) 99.8 % 96.0-97.0 HCO3 ARTERIAL (BEAKER) (test pypx=687) 26 mmol/L 21-29 BASE EXCESS ARTERIAL (BEAKER) (test vpfc=752) 0.9 mmol/L -2.0-3.0 PATIENT TEMPERATURE (BEAKER) (test vdjv=4932) 35.0 C FIO2 (BEAKER) (test vzil=9211) 80.0 % SODIUM NA-STAT [id number] 16:41:00 Test Item Value Reference Range Comments SODIUM (BEAKER) (test udul=401) 134 meq/L 135-148 GLUCOSE-STAT [id number] 16:41:00 Test Item Value Reference Range Comments GLUCOSE RANDOM (BEAKER) (test pved=972) 187 mg/dL 70-110 HGB/HCT (H&H) - STAT [id number] 16:41:00 Test Item Value Reference Range Comments HEMOGLOBIN (BEAKER) (test afme=604) 9.5 g/dL 13.0-16.8 HEMATOCRIT (BEAKER) (test ekyc=106) 28.0 % 40.0-50.0 POTASSIUM-STAT [id number] 16:40:00 Test Item Value Reference Range Comments POTASSIUM (BEAKER) (test dsit=152) 4.4 meq/L 3.6-5.5 SODIUM NA-STAT [id number] 16:11:00 Test Item Value Reference Range Comments SODIUM (BEAKER) (test dwet=570) 136 meq/L 135-148 POTASSIUM-STAT [id number] 16:11:00 Test Item Value Reference Range Comments POTASSIUM (BEAKER) (test ofrl=198) 3.9 meq/L 3.6-5.5 BLOOD GAS, [id number] 16:11:00 Test Item Value Reference Range Comments PH ARTERIAL (BEAKER) (test pnvl=960) 7.38 7.35-7.45 PCO2 ARTERIAL (BEAKER) (test nccv=937) 41 mmHg 35-45 PO2 ARTERIAL (BEAKER) (test xgjf=325) 360 mmHg 80-90 O2 SATURATION ARTERIAL (BEAKER) (test jxdj=366) 99.8 % 96.0-97.0 HCO3 ARTERIAL (BEAKER) (test xfsi=749) 26 mmol/L 21-29 BASE EXCESS ARTERIAL (BEAKER) (test yxwa=636) -1.3 mmol/L -2.0-3.0 PATIENT TEMPERATURE (BEAKER) (test ccbd=9920) 30.0 C FIO2 (BEAKER) (test xkbv=9521) 80.0 % GLUCOSE-STAT [id number] 16:11:00 Test Item Value Reference Range Comments GLUCOSE RANDOM (BEAKER) (test pnyo=192) 169 mg/dL 70-110 HGB/HCT (H&H) - STAT [id number] 16:11:00 Test Item Value Reference Range Comments HEMOGLOBIN (BEAKER) (test zsxg=299) 9.3 g/dL 13.0-16.8 HEMATOCRIT (BEAKER) (test gvjf=841) 27.0 % 40.0-50.0 SODIUM NA-STAT [id number] 15:24:00 Test Item Value Reference Range Comments SODIUM (BEAKER) (test risx=947) 141 meq/L 135-148 BLOOD GAS, [id number] 15:24:00 Test Item Value Reference Range Comments PH ARTERIAL (BEAKER) (test qojr=790) 7.39 7.35-7.45 PCO2 ARTERIAL (BEAKER) (test hmil=502) 42 mmHg 35-45 PO2 ARTERIAL (BEAKER) (test ybal=933) 260 mmHg 80-90 O2 SATURATION ARTERIAL (BEAKER) (test luhr=827) 99.6 % 96.0-97.0 HCO3 ARTERIAL (BEAKER) (test ntyv=730) 25 mmol/L 21-29 BASE EXCESS ARTERIAL (BEAKER) (test vidn=381) -0.2 mmol/L -2.0-3.0 PATIENT TEMPERATURE (BEAKER) (test klnt=3120) 35.8 C FIO2 (BEAKER) (test gsna=5198) 100.0 % POTASSIUM-STAT [id number] 15:24:00 Test Item Value Reference Range Comments POTASSIUM (BEAKER) (test bjem=562) 3.2 meq/L 3.6-5.5 GLUCOSE-STAT [id number] 15:24:00 Test Item Value Reference Range Comments GLUCOSE RANDOM (BEAKER) (test flyo=820) 114 mg/dL 70-110 HGB/HCT (H&H) - STAT [id number] 15:24:00 Test Item Value Reference Range Comments HEMOGLOBIN (BEAKER) (test rgzv=539) 13.3 g/dL 13.0-16.8 HEMATOCRIT (BEAKER) (test gkgs=797) 39.0 % 40.0-50.0 RAD, CHEST, 1 VIEW, NON [id number] 14:37:00Reason for exam:->Pre op Screening Should this be performed at the bedside?->YesFINAL REPORT INDICATION: Pre op Screening COMPARISON:None. TECHNIQUE: Chest radiograph, single view, portable technique. FINDINGS / IMPRESSION: Lung volumes are normal. No consolidation, pulmonary edema, pneumothorax, or pleural effusion is demonstrated. Focal calcified plaque in the aortic arch is noted. Heart shadow is normal in size. Osseous structures unremarkable. Signed: Amie Edwards [facility] Verified Date/Time: 11/03/2018 14:37:49 Reading Location: [address] Ortho Consult Reading Room CBC W/PLT COUNT & AUTO [id number] 13:09:00 Test Item Value Reference Range Comments WHITE BLOOD CELL COUNT (BEAKER) (test jfuj=064) 15.4 K/ L 3.5-10.5 RED BLOOD CELL COUNT (BEAKER) (test llwy=012) 4.81 M/ L 4.63-6.08 HEMOGLOBIN (BEAKER) (test tumy=348) 14.3 GM/DL 13.7-17.5 HEMATOCRIT (BEAKER) (test kscc=064) 43.3 % 40.1-51.0 MEAN CORPUSCULAR VOLUME (BEAKER) (test lfny=168) 90.0 fL 79.0-92.2 MEAN CORPUSCULAR HEMOGLOBIN (BEAKER) (test 29.7 pg 25.7-32.2 aneh=135) MEAN CORPUSCULAR HEMOGLOBIN CONC (BEAKER) (test 33.0 GM/DL 32.3-36.5 yjfo=001) RED CELL DISTRIBUTION WIDTH (BEAKER) (test 13.0 % 11.6-14.4 hrlc=747) PLATELET COUNT (BEAKER) (test mnbh=769) 335 K/CU MM 150-450 MEAN PLATELET VOLUME (BEAKER) (test jbtj=864) 9.7 fL 9.4-12.4 NUCLEATED RED BLOOD CELLS (BEAKER) (test 0 /100 WBC 0-0 afuh=596) (CELLAVISION MANUAL DIFF)2018-11-03 13:09:00 Test Item Value Reference Range Comments NEUTROPHILS - REL (CELLAVISION)(BEAKER) (test 68 % mmee=7249) LYMPHOCYTES - REL (CELLAVISION)(BEAKER) (test 24 % olhi=6837) MONOCYTES - REL (CELLAVISION)(BEAKER) (test 5 % bttz=6388) BANDS - REL (CELLAVISION)(BEAKER) (test 1 % 0-10 slqd=8726) ATYPICAL LYMPHOCYTES - REL (CELLAVISION)(BEAKER) 2 % 0-0 (test prlk=2508) NEUTROPHILS - ABS (CELLAVISION)(BEAKER) (test 10.47 K/ul 1.78-5.38 mhuy=0246) LYMPHOCYTES - ABS (CELLAVISION)(BEAKER) (test 3.70 K/ul 1.32-3.57 lgqn=5306) MONOCYTES - ABS (CELLAVISION)(BEAKER) (test 0.77 K/uL 0.30-0.82 zdul=2606) BANDS - ABS (CELLAVISION)(BEAKER) (test 0.15 K/uL 0.00-0.80 jifg=5462) ATYPICAL LYMPHOCYTES - ABS (CELLAVISION)(BEAKER) 0.31 K/uL 0.00-0.00 (test lvgr=6043) TOTAL COUNTED (BEAKER) (test myoj=3210) 100 RBC MORPHOLOGY (BEAKER) (test hrfs=712) Normal WBC MORPHOLOGY (BEAKER) (test hroq=474) Normal PLT MORPHOLOGY (BEAKER) (test uhrf=570) Normal ARTIFACT (CELLAVISION)(BEAKER) (test erch=5268) Present PLATELET CONCENTRATION (CELLAVISION)(BEAKER) Adequate (test rftz=9980) Received comment: User comments: Slide comments:[id number] 12:37:00 Test Item Value Reference Range Comments MAGNESIUM (BEAKER) (test opfw=227) 2.2 mg/dL 1.6-2.6 COMPREHENSIVE METABOLIC [id number] 12:37:00 Test Item Value Reference Range Comments TOTAL PROTEIN (BEAKER) 7.6 gm/dL 6.0-8.3 (test bizs=921) ALBUMIN (BEAKER) (test 4.1 g/dL 3.5-5.0 vefo=0283) ALKALINE PHOSPHATASE 76 U/L 40-150 (BEAKER) (test iyti=848) BILIRUBIN TOTAL (BEAKER) 0.3 mg/dL 0.2-1.2 (test plpx=078) SODIUM (BEAKER) (test 143 meq/L 136-145 tnge=077) POTASSIUM (BEAKER) (test 3.6 meq/L 3.5-5.1 rhio=454) CHLORIDE (BEAKER) (test 108 meq/L 98-107 useh=834) CO2 (BEAKER) (test 25 meq/L 22-29 rydj=279) BLOOD UREA NITROGEN 14 mg/dL 7-21 (BEAKER) (test ekqy=902) CREATININE (BEAKER) (test 0.74 mg/dL 0.57-1.25 tlki=806) GLUCOSE RANDOM (BEAKER) 88 mg/dL 70-105 (test fxoa=266) CALCIUM (BEAKER) (test 9.6 mg/dL 8.4-10.2 szlh=494) AST (SGOT) (BEAKER) (test 17 U/L 5-34 akef=068) ALT (SGPT) (BEAKER) (test 18 U/L 6-55 yuyi=732) EGFR (BEAKER) (test 132 mL/min/1.73 sq ESTIMATED GFR IS NOT rder=3205) m ACCURATE CREATININE CLEARANCE IN PREDICTING GLOMERULAR FILTRATION RATE. ESTIMATED GFR IS NOT APPLICABLE FOR DIALYSIS PATIENTS. LIPID [id number] 12:37:00 Test Item Value Reference Range Comments TRIGLYCERIDES (BEAKER) (test fhxd=148) 168 mg/dL CHOLESTEROL (BEAKER) (test eyez=451) 225 mg/dL HDL CHOLESTEROL (MICHAELAKER) (test bhnb=956) 45 mg/dL LDL CHOLESTEROL CALCULATED (MICHAELAKER) (test 146 mg/dL egix=030) Triglyceride Reference Range: Low Risk <150 Borderline 150- 199 High Risk 200-499 Very High Risk >=500Cholesterol Reference Range: Low Risk <200 Borderline 200-239 High Risk > 240HDL Cholesterol Reference Range: Low Risk >=60 High Risk <40LDL Cholesterol Reference Range: Optimal <100 Near Optimal 100-129 Borderline 130-159 High 160-189 Very High >=[id number] 12:23:00 Test Item Value Reference Range Comments PARTIAL THROMBOPLASTIN TIME (MICHAELAKER) (test 26.4 seconds 22.5-36.0 sjxf=171) PROTHROMBIN TIME/[id number] 12:22:00 Test Item Value Reference Range Comments PROTIME (VI) (test zsuh=194) 12.8 seconds 11.7-14.7 INR (MICHAELAKER) (test oxpm=760) 1.0 <=5.9 RECOMMENDED COUMADIN/WARFARIN INR THERAPY RANGESSTANDARD DOSE: 2.0 - 3.0 Includes: PROPHYLAXIS forvenous thrombosis, systemic embolization; TREATMENT for venous thrombosis and/or pulmonary embolus.HIGH RISK: Target INR is 2.5-3.5 for patients with mechanical heart valves.
[2018-11-10] MEDS ORDERED: DEXAMETHASONE 4 MG/ML VIAL ONE (22:02)
[2018-11-10] MEDS ORDERED: DIPHENHYDRAMINE 50 MG/ML VIAL ONE (22:02)
[2018-11-10] MEDS ORDERED: FAMOTIDINE 20 MG/2 ML VIAL IV ONE (22:02)
--- NOTE | 2018-11-11 00:56 | EDPHYS ---
Physician Documentation [facility] Name: Goyo Correa Jr Age: 58 yrs Sex: Male : 1960 Arrival Date: 11/10/2018 Time: 20:29 Bed 28 Private MD: Abner Oconnor T ED Physician Sean Land HPI: 11/11 02:17 This 58 yrs old Male presents to ER via Ambulatory with complaints of FACE gs SWELLING, also had by pass this week. 02:18 The patient presents with localized swelling. Onset: The symptoms/episode gs began/occurred gradually, just prior to arrival. Associated signs and symptoms: Pertinent negatives: abdominal pain, dysphagia, fever, rash. Possible causes: Severity of symptoms: At their worst the symptoms were moderate in the emergency department the symptoms are unchanged. The patient has experienced a previous episode. The patient has been recently seen by a physician:. Historical: - Allergies: 11/10 20:52 Bees; aj1 20:52 Cefuroxime; aj1 20:52 Zithromax; aj1 - Home Meds: 20:52 senna 8.6 mg oral cap 2 caps once daily [Active]; tramadol 50 mg Oral tab 1 tab as aj1 needed [Active]; atorvastatin 80 mg oral tab 1 tab once daily [Active]; famotidine 20 mg Oral tab 1 tab once daily [Active]; metoprolol tartrate 25 mg Oral tab 1 tab once daily [Active]; aspirin 81 mg Oral TbEC 1 tab once daily [Active]; bumetanide 1 mg Oral tab 1 tab once daily [Active]; clopidogrel 75 mg oral tab 1 tab once daily [Active]; potassium chloride 20 mEq Oral TbER 1 tab once daily [Active]; - PMHx: 20:52 Hypertension; Myocardial infarction; aj1 - PSHx: 20:52 triple bypass 11/01/2018; aj1 - Immunization history:: Flu vaccine is not up to date. - Social history:: Smoking status: Patient/guardian denies using tobacco. - Ebola Screening: : Patient denies travel to an Ebola-affected area in the 21 days before illness onset. ROS: 11/11 02:18 ENT: Negative for difficulty swallowing, difficulty handling secretions, hoarseness. gs All other systems are negative. Exam: 02:18 Eyes: Pupils equal round and reactive to light, extra-ocular motions intact. Lids and gs lashes normal. Conjunctiva and sclera are non-icteric and not injected. Cornea within normal limits. Periorbital areas with no swelling, redness, or edema. Neck: Trachea midline, no thyromegaly or masses palpated, and no cervical lymphadenopathy. Supple, full range of motion without nuchal rigidity, or vertebral point tenderness. No Meningismus. Chest/axilla: Normal chest wall appearance and motion. Nontender with no deformity. No lesions are appreciated. Cardiovascular: Regular rate and rhythm with a normal S1 and S2. No gallops, murmurs, or rubs. Normal PMI, no JVD. No pulse deficits. Respiratory: Lungs have equal breath sounds bilaterally, clear to auscultation and percussion. No rales, rhonchi or wheezes noted. No increased work of breathing, no retractions or nasal flaring. Abdomen/GI: Soft, non-tender, with normal bowel sounds. No distension or tympany. No guarding or rebound. No evidence of tenderness throughout. Back: No spinal tenderness. No costovertebral tenderness. Full range of motion. Skin: Warm, dry with normal turgor. Normal color with no rashes, no lesions, and no evidence of cellulitis. MS/ Extremity: Pulses equal, no cyanosis. Neurovascular intact. Full, normal range of motion. Neuro: Awake and alert, GCS 15, oriented to person, place, time, and situation. Cranial nerves II-XII grossly intact. Motor strength 5/5 in all extremities. Sensory grossly intact. Cerebellar exam normal. Normal gait. 02:18 Constitutional: The patient appears alert, awake. 02:18 Head/face: Noted is swelling, that is mild, of the left cheek, upper vermilion border and left corner of mouth. Vital Signs: 11/10 20:52 BP 120 / 67; Pulse 96; Resp 18; Temp 99.9(TE); Pulse Ox 97% on R/A; Weight 90.72 kg aj1 (R); Height 5 ft. 9 in. (175.26 cm) (R); Pain 0/10; 21:15 BP 105 / 69 RA; Pulse 96; Resp 18 S; Pulse Ox 97% on R/A; rv 22:20 BP 109 / 71; Pulse 80; Resp 19; Pulse Ox 99% on R/A; ca1 23:30 BP 123 / 79; Pulse 92; Resp 19; Pulse Ox 99% on R/A; ca1 11/11 00:37 BP 109 / 77; Pulse 85; Resp 19; Pulse Ox 96% on R/A; ca1 11/10 20:52 Body Mass Index 29.53 (90.72 kg, 175.26 cm) aj1 MDM: 11/10 21:37 Patient medically screened. gs 11/11 02:18 Differential diagnosis: angioedema, non IgE mediated drug reaction Vasovagal Reactions. Data reviewed: vital signs, nurses notes. Counseling: I had a detailed discussion with the patient and/or guardian regarding: the historical points, exam findings, and any diagnostic results supporting the discharge/admit diagnosis, to return to the emergency department if symptoms worsen or persist or if there are any questions or concerns that arise at home. Response to treatment: the patient's symptoms have mildly improved after treatment, patient is well hydrated. and as a result, I will discharge patient. 11/11 01:04 Order name: IV Saline Lock; Complete Time: 01:04 ca1 Administered Medications: 11/10 21:45 Drug: Decadron - Dexamethasone 10 mg Route: IVP; Site: left hand; rv 11/11 01:07 Follow up: Response: No adverse reaction; Marked relief of symptoms ca1 11/10 21:45 Drug: Benadryl 25 mg Route: IVP; Site: left hand; rv 11/11 01:05 Follow up: Response: No adverse reaction; Marked relief of symptoms ca1 11/10 21:45 Drug: Pepcid 20 mg Route: IVP; Site: left hand; rv 11/11 01:05 Follow up: Response: No adverse reaction; Marked relief of symptoms ca1 11/10 23:23 Drug: Benadryl 25 mg Route: IVP; Site: left hand; ca1 11/11 01:05 Follow up: Response: No adverse reaction; Marked relief of symptoms ca1 Disposition: 11/11/18 00:55 Discharged to Home. Impression: Angioneurotic edema. - Condition is Stable. - Discharge Instructions: Angioedema, Smyp-lw-Ummk. - Prescriptions for dexamethasone 4 mg Oral tablet - take 1 tablet by ORAL route once daily; 5 tablet. Zyrtec 10 mg Oral Tablet - take 1 tablet by ORAL route once daily .; 10 tablet. - Medication Reconciliation Form, Thank You Letter, Antibiotic Education, Prescription Opioid Use form. - Follow up: Private Physician; When: 2 - 3 days; Reason: Re-evaluation by your physician. Signatures: Na Marvin RN RN aj1 Sean Land MD MD gs [place] Iraheta RN RN rv Acob, ZOË Briones RN ca1 Corrections: (The following items were deleted from the chart) 01:06 00:55 11/11/2018 00:55 Discharged to Home. Impression: Angioneurotic edema. Condition ca1 is Stable. Forms are Medication Reconciliation Form, Thank You Letter, Antibiotic Education, Prescription Opioid Use. Follow up: Private Physician; When: 2 - 3 days; Reason: Re-evaluation by your physician.
--- NOTE | 2018-11-11 00:56 | ER ---
Nurse's Notes [facility] Name: Goyo Correa Jr Age: 58 yrs Sex: Male : 1960 Arrival Date: 11/10/2018 Time: 20:29 Bed 28 Private MD: Abner Oconnor T Diagnosis: Angioneurotic edema Presentation: 11/10 20:46 Presenting complaint: Patient states: Left sided facial swelling that started at 1930 aj1 today, Patient denies a history of dental caries. States that he had a triple bypass on November 01 and he was discharged from the hospital 2 days ago. Reports that he is taking several new medications since he was discharged. Denies shortness of breath. Breath sounds CTA. Reports that the only time that he has chest pain is when he coughs. Transition of care: patient was not received from another setting of care. Onset of symptoms was November 10, 2018. Risk Assessment: Do you want to hurt yourself or someone else? Patient reports no desire to harm self or others. Initial Sepsis Screen: Does the patient meet any 2 criteria? No. Patient's initial sepsis screen is negative. Does the patient have a suspected source of infection? No. Patient's initial sepsis screen is negative. Care prior to arrival: None. 20:46 Method Of Arrival: Ambulatory aj1 20:46 Acuity: BELLE 3 aj1 Triage Assessment: 20:52 General: Appears in no apparent distress. uncomfortable, Behavior is calm, cooperative, aj1 appropriate for age. Pain: Denies pain. Neuro: Level of Consciousness is awake, alert, obeys commands. Cardiovascular: Patient's skin is warm and dry. Respiratory: Airway is patent Respiratory effort is even, unlabored, Respiratory pattern is regular, symmetrical, Breath sounds are clear bilaterally. Derm: swelling noted to left jaw, left side of lips. Historical: - Allergies: 20:52 Bees; aj1 20:52 Cefuroxime; aj1 20:52 Zithromax; aj1 - Home Meds: 20:52 senna 8.6 mg oral cap 2 caps once daily [Active]; tramadol 50 mg Oral tab 1 tab as aj1 needed [Active]; atorvastatin 80 mg oral tab 1 tab once daily [Active]; famotidine 20 mg Oral tab 1 tab once daily [Active]; metoprolol tartrate 25 mg Oral tab 1 tab once daily [Active]; aspirin 81 mg Oral TbEC 1 tab once daily [Active]; bumetanide 1 mg Oral tab 1 tab once daily [Active]; clopidogrel 75 mg oral tab 1 tab once daily [Active]; potassium chloride 20 mEq Oral TbER 1 tab once daily [Active]; - PMHx: 20:52 Hypertension; Myocardial infarction; aj1 - PSHx: 20:52 triple bypass 11/01/2018; aj1 - Immunization history:: Flu vaccine is not up to date. - Social history:: Smoking status: Patient/guardian denies using tobacco. - Ebola Screening: : Patient denies travel to an Ebola-affected area in the 21 days before illness onset. Screenin:19 Abuse screen: Denies threats or abuse. Denies injuries from another. Nutritional rv screening: No deficits noted. Tuberculosis screening: No symptoms or risk factors identified. Fall Risk None identified. Assessment: 21:18 General: Appears in no apparent distress. comfortable, Behavior is calm, cooperative. rv Pain: Denies pain. Neuro: Level of Consciousness is awake, alert, obeys commands, Oriented to person, place, time, situation. Cardiovascular: Capillary refill < 3 seconds. Respiratory: Airway is patent. GI: No signs and/or symptoms were reported involving the gastrointestinal system. : No signs and/or symptoms were reported regarding the genitourinary system. EENT: No signs and/or symptoms were reported regarding the EENT system. Derm: Skin is intact. Musculoskeletal: Swelling present in left cheek, mouth and left jaw. 22:41 Reassessment: Patient appears in no apparent distress at this time. Patient is alert, rv oriented x 3, equal unlabored respirations, skin warm/dry/pink. PATIENT IS FEELING BETTER. 23:45 Reassessment: Patient appears in no apparent distress at this time. Patient and/or ca1 family updated on plan of care and expected duration. Pain level reassessed. Patient is alert, oriented x 3, equal unlabored respirations, skin warm/dry/pink. 11/11 00:37 Reassessment: Patient appears in no apparent distress at this time. Patient and/or ca1 family updated on plan of care and expected duration. Pain level reassessed. Patient is alert, oriented x 3, equal unlabored respirations, skin warm/dry/pink. Vital Signs: 11/10 20:52 BP 120 / 67; Pulse 96; Resp 18; Temp 99.9(TE); Pulse Ox 97% on R/A; Weight 90.72 kg aj1 (R); Height 5 ft. 9 in. (175.26 cm) (R); Pain 0/10; 21:15 BP 105 / 69 RA; Pulse 96; Resp 18 S; Pulse Ox 97% on R/A; rv 22:20 BP 109 / 71; Pulse 80; Resp 19; Pulse Ox 99% on R/A; ca1 23:30 BP 123 / 79; Pulse 92; Resp 19; Pulse Ox 99% on R/A; ca1 11/11 00:37 BP 109 / 77; Pulse 85; Resp 19; Pulse Ox 96% on R/A; ca1 11/10 20:52 Body Mass Index 29.53 (90.72 kg, 175.26 cm) aj1 ED Course: 11/10 20:29 Patient arrived in ED. es 20:29 Abner Oconnor MD is Private Physician. es 20:49 Triage completed. aj1 20:52 Arm band placed on Patient placed in waiting room, Patient notified of wait time. EKG aj1 completed in triage. Results shown to MD. 21:18 Sean Land MD is Attending Physician. gs 21:20 Patient has correct armband on for positive identification. Placed in gown. Bed in low rv position. Call light in reach. Side rails up X 1. Adult w/ patient. Pulse ox on. NIBP on. 23:20 Inserted saline lock: 22 gauge in left hand, using aseptic technique. ca1 11/11 01:04 No provider procedures requiring assistance completed. IV discontinued, intact, ca1 bleeding controlled, No redness/swelling at site. Pressure dressing applied. Administered Medications: 11/10 21:45 Drug: Decadron - Dexamethasone 10 mg Route: IVP; Site: left hand; rv 11/11 01:07 Follow up: Response: No adverse reaction; Marked relief of symptoms ca1 11/10 21:45 Drug: Benadryl 25 mg Route: IVP; Site: left hand; rv 11/11 01:05 Follow up: Response: No adverse reaction; Marked relief of symptoms ca1 11/10 21:45 Drug: Pepcid 20 mg Route: IVP; Site: left hand; rv 11/11 01:05 Follow up: Response: No adverse reaction; Marked relief of symptoms ca1 11/10 23:23 Drug: Benadryl 25 mg Route: IVP; Site: left hand; ca1 11/11 01:05 Follow up: Response: No adverse reaction; Marked relief of symptoms ca1 Outcome: 00:55 Discharge ordered by . gs 01:05 Discharged to home ambulatory, with family. ca1 01:05 Discharge instructions given to patient, family, Instructed on discharge instructions, follow up and referral plans. medication usage, Demonstrated understanding of instructions, follow-up care, medications, Prescriptions given X 2. 01:06 Condition: stable ca1 01:06 Patient left the ED. ca1 Signatures: Na Marvin RN RN aj1 Ale Romero Gregory, MD MD [place] Iraheta, RN RN rv Acob, Anali RN RN ca1
[2018-11-11 01:59] VITALS: TEMP 99.9
[2018-11-11 02:07] VITALS: BP 109/77; O2SAT 96
--- NOTE | 2018-11-12 09:27 | EKG ---
Test Date: 2018-11-10 Test Time: 20:58:24 Central Supply Tech: TENZIN MEASUREMENT RESULTS: Intervals: Rate: 95 IA: 124 QRSD: 92 QT: 370 QTc: 464 [place]: P: 71 IA: 124 QRS: 59 T: 56 INTERPRETIVE STATEMENTS: Normal sinus rhythm Inferior infarct, age undetermined Abnormal ECG Compared to ECG 11/01/2018 16:43:12 No significant changes Electronically Signed On 11-12-18 09:22:19 CDT by Jose Raul Wu
== END 2018-11-11 01:06 | disposition home or self-care (01) ==
LOC: ER 20:27
DX: T78.3XXA Angioneurotic edema, initial encounter (principal); R22.0 Localized swelling, mass and lump, head; I10 Essential (primary) hypertension; I25.2 Old myocardial infarction; Z79.82 Long term (current) use of aspirin; Z88.1 Allergy status to other antibiotic agents; Z91.030 Bee allergy status
CPT/HCPCS: 93005; 96374; 96375; 99284

== ENCOUNTER 2019-03-12 20:49 | Emergency (ER) | payer BC ==
--- OUTSIDE RECORDS SUMMARY | 2019-03-12 20:52 | XMS REPORT | Clinical Summary ---
:1960 Author Organization [facility] Address [address] [place] [address] Care Team Providers Name Role Phone Pcp, [...] tablet (17.2 mg total) by mouth nightly. atorvastatin Take 10 mg by 0 11/08/2018 Discontinued (LIPITOR) 10 MG mouth daily. tablet traMADol (ULTRAM) Take 1 tablet 30 tablet 0 11/08/2018 11/18/2018 50 mg tablet (50 mg total) by mouth every 6 (six) hours as needed for Pain for up to 10 days. Max Daily Amount: 200 mg Active Problems Problem Noted Date Volume overload 11/07/2018 HTN (hypertension) 11/07/2018 HLD (hyperlipidemia) 11/07/2018 Tobacco abuse 11/07/2018 Allergic rhinitis 11/07/2018 Coronary artery disease 11/03/2018 Vasogenic shock 11/03/2018 Respiratory insufficiency 11/03/2018 Acute blood loss anemia 11/03/2018 S/P CABG (coronary artery bypass graft) 11/03/2018 Hypotension due to hypovolemia Hyperglycemia Encounters Date Type Specialty Care Team Description 11/17/2018 Office Visit Cardiology Vasile, Post-operative state Bonifacio (Primary Dx) 11/05/2018 Travel 11/03/2018 Surgery Vasile, CLYA,AORTO Marvin Ortega CORONARY BETH/SVG 11/03/2018 Anesthesia Event Guillermo Rock, MAURICIO 11/03/2018 - Hospital Encounter Cardiology Reji Murillo S/P CABG (coronary artery bypass graft) (Primary Dx); 11/08/2018 MD José Miguel Acute blood loss anemia; Hortensia Campbell Respiratory insufficiency; MD Coty Coronary artery disease involving [place] coronary artery of [place] heart with unstable angina pectoris (HCC) Dennis Good MD 11/03/2018 Orders Only General Internal Medicine after 03/11/2018 Social History Tobacco Use Types Packs/Day Years [...] Vital Sign Reading Time Taken Blood Pressure 126/75 11/17/2018 9:36 AM CDT Pulse 83 11/17/2018 9:36 AM CDT Temperature 36.7 C (98 F) 11/17/2018 9:36 AM CDT Respiratory Rate 14 11/17/2018 9:36 AM CDT Oxygen Saturation 100% 11/17/2018 9:36 AM CDT Inhaled Oxygen Concentration 100% 11/04/2018 11:31 AM PROCEDURES NURSE Weight 89.4 kg (197 lb) 11/17/2018 9:36 AM CDT Height 175.3 cm (5' 9") 11/17/2018 9:36 AM CDT Body Mass Index 29.09 11/17/2018 9:36 AM CDT Plan of Treatment Not on file Procedures Procedure Name Priority Date/Time Associated Comments Diagnosis RHYTHM STRIP - SCAN 12/02/2018 11:12 AM CDT RHYTHM STRIP - SCAN 11/28/2018 3:33 PM CDT REPORT OF PROCEDURE - 11/10/2018 [...] Routine 11/05/2018 9:24 Results for this PM PROCEDURES NURSE procedure are in the results section. PERIPHERAL VASCULAR 11/05/2018 9:20 REPORT - SCAN PM PROCEDURES NURSE XR CHEST 1 VIEW STAT 11/05/2018 11:22 Results for this PORTABLE/BEDSIDE AM PROCEDURES NURSE procedure are in the results section. CBC (HEMOGRAM ONLY) Routine 11/05/2018 3:17 Results for this AM PROCEDURES NURSE procedure are in the results section. PHOSPHORUS Routine 11/05/2018 3:17 Results for this AM PROCEDURES NURSE procedure are in the results section. MAGNESIUM Routine 11/05/2018 3:17 Results for this AM PROCEDURES NURSE procedure are in the results section. BASIC METABOLIC PANEL Routine 11/05/2018 3:17 Results for this (7) AM PROCEDURES NURSE procedure are in the results section. TRANSFUSION SERVICE 11/04/2018 6:03 REPORT - SCAN PM PROCEDURES NURSE POCT-GLUCOSE METER Routine 11/04/2018 5:40 Results for this PM PROCEDURES NURSE procedure are in the results section. MAGNESIUM Routine 11/04/2018 2:27 Results for this PM PROCEDURES NURSE procedure are in the results section. POCT-GLUCOSE METER Routine 11/04/2018 12:21 Results for this PM PROCEDURES NURSE procedure are in the results section. CAROTID DOPPLER Routine 11/04/2018 12:20 Results for this BILATERAL PM PROCEDURES NURSE procedure are in the results section. POCT-GLUCOSE METER Routine 11/04/2018 6:21 Results for this AM PROCEDURES NURSE procedure are in the results section. FIBRINOGEN Routine 11/04/2018 5:23 Results for this AM PROCEDURES NURSE procedure are in the results section. APTT Routine 11/04/2018 5:23 Results for this AM PROCEDURES NURSE procedure are in the results section. PROTHROMBIN TIME/INR Routine 11/04/2018 5:23 Results for this AM PROCEDURES NURSE procedure are in the results section. XR CHEST 1 VIEW Routine 11/04/2018 4:05 Results for this PORTABLE/BEDSIDE AM PROCEDURES NURSE procedure are in the results section. BLOOD GAS, ARTERIAL STAT 11/04/2018 2:39 Results for this AM PROCEDURES NURSE procedure are in the results section. CBC (HEMOGRAM ONLY) Routine 11/04/2018 2:39 Results for this AM PROCEDURES NURSE procedure are in the results section. PHOSPHORUS Routine 11/04/2018 2:39 Results for this AM PROCEDURES NURSE procedure are in the results section. MAGNESIUM Routine 11/04/2018 2:39 Results for this AM PROCEDURES NURSE procedure are in the results section. BASIC METABOLIC PANEL Routine 11/04/2018 2:39 Results for this (7) AM PROCEDURES NURSE procedure are in the results section. POCT-GLUCOSE METER Routine 11/04/2018 12:01 Results for this AM PROCEDURES NURSE procedure are in the results section. BLOOD GAS, ARTERIAL STAT 11/03/2018 10:44 Results for this PM PROCEDURES NURSE procedure are in the results section. RRL CRITICAL LABS STAT 11/03/2018 10:44 Results for this (ABG,NA,K,H&H,GLUCOSE) PM PROCEDURES NURSE procedure are in the results section. BLOOD GAS, ARTERIAL STAT 11/03/2018 9:55 Results for this PM PROCEDURES NURSE procedure are in the results section. RRL CRITICAL LABS STAT 11/03/2018 9:55 Results for this (ABG,NA,K,H&H,GLUCOSE) PM PROCEDURES NURSE procedure are in the results section. HGB/HCT (H&H) - STAT STAT 11/03/2018 8:56 Results for this LAB PM PROCEDURES NURSE procedure are in the results section. GLUCOSE-STAT LAB STAT 11/03/2018 8:56 Results for this PM PROCEDURES NURSE procedure are in the results section. POTASSIUM-STAT LAB STAT 11/03/2018 8:56 Results for this PM PROCEDURES NURSE procedure are in the results section. SODIUM NA-STAT LAB STAT 11/03/2018 8:56 Results for this PM PROCEDURES NURSE procedure are in the results section. BLOOD GAS, ARTERIAL STAT 11/03/2018 8:56 Results for this PM PROCEDURES NURSE procedure are in the results section. RRL CRITICAL LABS STAT 11/03/2018 8:56 Results for this (ABG,NA,K,H&H,GLUCOSE) PM PROCEDURES NURSE procedure are in the results section. FIBRINOGEN STAT 11/03/2018 7:39 Results for this PM PROCEDURES NURSE procedure are in the results section. APTT STAT 11/03/2018 7:39 Results for this PM PROCEDURES NURSE procedure are in the results section. PROTHROMBIN TIME/INR STAT 11/03/2018 7:39 Results for this PM PROCEDURES NURSE procedure are in the results section. BLOOD GAS, ARTERIAL STAT 11/03/2018 7:39 Results for this PM PROCEDURES NURSE procedure are in the results section. XR CHEST 1 VIEW Routine 11/03/2018 7:18 Results for this PORTABLE/BEDSIDE PM PROCEDURES NURSE procedure are in the results section. CALCIUM, IONIZED STAT 11/03/2018 7:14 Results for this PM PROCEDURES NURSE procedure are in the results section. OXYGEN SATURATION, STAT 11/03/2018 7:14 Results for this MEASURED PM PROCEDURES NURSE procedure are in the results section. LACTIC ACID, ARTERIAL STAT 11/03/2018 7:14 Results for this PM PROCEDURES NURSE procedure are in the results section. CBC W/PLT COUNT & AUTO STAT 11/03/2018 7:06 Results for this DIFFERENTIAL PM PROCEDURES NURSE procedure are in the results section. CBC W/PLT COUNT & AUTO STAT 11/03/2018 7:06 Results for this DIFFERENTIAL PM PROCEDURES NURSE procedure are in the results section. PHOSPHORUS STAT 11/03/2018 7:06 Results for this PM PROCEDURES NURSE procedure are in the results section. MAGNESIUM STAT 11/03/2018 7:06 Results for this PM PROCEDURES NURSE procedure are in the results section. BASIC METABOLIC PANEL STAT 11/03/2018 7:06 Results for this (7) PM PROCEDURES NURSE procedure are in the results section. VIVIENNE,3D 11/03/2018 5:01 Coronary artery PM PROCEDURES NURSE disease involving [place] coronary artery of [place] heart without angina pectoris Special Needs (ICU BED ) ENDOSCOPIC HARVEST,VEIN 11/03/2018 5:01 PM PROCEDURES NURSE Coronary artery disease involving [place] coronary artery of [place] heart without angina pectoris Special Needs (ICU BED ) BYPASS,AORTO CORONARY BETH/SVG 11/03/2018 5:01 PM PROCEDURES NURSE Coronary artery disease involving [place] coronary artery of [place] heart without angina pectoris Special Needs (ICU BED ) HGB/HCT (H&H) - STAT LAB STAT 11/03/2018 4:28 PM PROCEDURES NURSE GLUCOSE-STAT LAB STAT 11/03/2018 4:28 PM PROCEDURES NURSE POTASSIUM-STAT LAB STAT 11/03/2018 4:28 PM PROCEDURES NURSE SODIUM NA-STAT LAB STAT 11/03/2018 4:28 PM PROCEDURES NURSE BLOOD GAS, ARTERIAL STAT 11/03/2018 4:28 PM PROCEDURES NURSE RRL CRITICAL LABS STAT 11/03/2018 4:28 PM PROCEDURES NURSE Results for this (ABG,NA,K,H&H,GLUCOSE) procedure are in the results section. HGB/HCT (H&H) - STAT LAB STAT 11/03/2018 3:57 PM PROCEDURES NURSE GLUCOSE-STAT LAB STAT 11/03/2018 3:57 PM PROCEDURES NURSE POTASSIUM-STAT LAB STAT 11/03/2018 3:57 PM PROCEDURES NURSE SODIUM NA-STAT LAB STAT 11/03/2018 3:57 PM PROCEDURES NURSE BLOOD GAS, ARTERIAL STAT 11/03/2018 3:57 PM PROCEDURES NURSE RRL CRITICAL LABS STAT 11/03/2018 3:57 PM PROCEDURES NURSE Results for this (ABG,NA,K,H&H,GLUCOSE) procedure are in the results section. HGB/HCT (H&H) - STAT LAB Routine 11/03/2018 3:14 PM PROCEDURES NURSE GLUCOSE-STAT LAB Routine 11/03/2018 3:14 PM PROCEDURES NURSE POTASSIUM-STAT LAB Routine 11/03/2018 3:14 PM PROCEDURES NURSE SODIUM NA-STAT LAB Routine 11/03/2018 3:14 PM PROCEDURES NURSE BLOOD GAS, ARTERIAL Routine 11/03/2018 3:14 PM PROCEDURES NURSE RRL CRITICAL LABS Routine 11/03/2018 3:14 PM PROCEDURES NURSE Results for this (ABG,NA,K,H&H,GLUCOSE) procedure are in the results section. XR CHEST 1 VIEW Routine 11/03/2018 1:12 PM PROCEDURES NURSE Results for this PORTABLE/BEDSIDE procedure are in the results section. ABORH, MANUAL STAT 11/03/2018 12:37 PM PROCEDURES NURSE (CELLAVISION MANUAL DIFF) Routine 11/03/2018 11:52 AM PROCEDURES NURSE CBC W/PLT COUNT & AUTO Routine 11/03/2018 11:52 AM PROCEDURES NURSE Results for this DIFFERENTIAL procedure are in the results section. TYPE AND SCREEN, AUTOMATED Routine 11/03/2018 11:52 AM PROCEDURES NURSE PROTHROMBIN TIME/INR Routine 11/03/2018 11:52 AM PROCEDURES NURSE MAGNESIUM Routine 11/03/2018 11:52 AM PROCEDURES NURSE LIPID PANEL Routine 11/03/2018 11:52 AM PROCEDURES NURSE HEMOGLOBIN A1C AP Routine 11/03/2018 11:52 AM PROCEDURES NURSE COMPREHENSIVE METABOLIC Routine 11/03/2018 11:52 AM PROCEDURES NURSE Results for this PANEL procedure are in the results section. CBC W/PLT COUNT & AUTO Routine 11/03/2018 11:52 AM PROCEDURES NURSE Results for this DIFFERENTIAL procedure are in the results section. APTT Routine 11/03/2018 11:52 AM PROCEDURES NURSE POCT-ACT Routine 11/03/2018 10:55 AM PROCEDURES NURSE ECG 12-LEAD Routine 11/03/2018 10:45 AM PROCEDURES NURSE Procedure Note - Interface, External Ris In - 11/03/2018 11:11 AM PROCEDURES NURSE Ventricular Rate 51 BPM Atrial Rate 51 BPM P-R Interval 132 ms QRS Duration 94 ms Q-T Interval 470 ms QTC Calculation(Bazett) 433 ms P [place] 8 degrees R [place] 17 degrees T [place] 35 degrees Sinus bradycardia Possible Inferior infarct , age undetermined Abnormal ECG No previous ECGs available ECG 12-LEAD Routine 11/03/2018 10:45 AM PROCEDURES NURSE POCT-ACT Routine 11/03/2018 10:30 AM PROCEDURES NURSE POCT-ACT Routine 11/03/2018 10:17 AM PROCEDURES NURSE POCT-ACT Routine 11/03/2018 10:04 AM PROCEDURES NURSE after 03/11/2018 Results RHYTHM STRIP - SCAN (12/02/2018 11:12 AM CDT)Only the most recent of3 resultswithin the time period is included. Narrative Performed At EKG-SCANNED (11/10/2018 2:10 PM CDT)Only the most recent of2 resultswithin the time period is included. Narrative Performed At ECHOCARDIOGRAM REPORT - SCAN (11/08/2018 9:23 PM CDT) Narrative Performed At CBC with platelet count + automated diff (11/08/2018 4:28 AM CDT)Only the most recent of5 resultswithin the time period is included. WBC 11.5 (H) 3.5 - 10.5 K/L [facility] RBC 3.19 (L) 4.63 - 6.08 M/L [facility] Hemoglobin 9.4 (L) 13.7 - 17.5 GM/DL [facility] Hematocrit 29.0 (L) 40.1 - 51.0 % [facility] MCV 90.9 79.0 - 92.2 fL [facility] MCH 29.5 25.7 - 32.2 pg [facility] MCHC 32.4 32.3 - 36.5 GM/DL [facility] RDW 12.9 11.6 - 14.4 % [facility] Platelets 310 150 - 450 K/CU MM [facility] MPV 10.3 9.4 - 12.4 fL [facility] nRBC 0 0 - 0 /100 WBC [facility] % Neutros 65 % [facility] % Lymphs 21 % [facility] % Monos 9 % [facility] % Eos 4 % [facility] % Baso 0 % [facility] # Neutros 7.47 (H) 1.78 - 5.38 K/L [facility] # Lymphs 2.39 1.32 - 3.57 K/L [facility] # Monos 1.08 (H) 0.30 - 0.82 K/L [facility] # Eos 0.42 0.04 - 0.54 K/L [facility] # Baso 0.04 0.01 - 0.08 K/L [facility] Immature Granulocytes-Relative 1 0 - 1 % [facility] Specimen Blood Performing Organization Address City/State/Zipcode Phone Number [address] [address] [phone] CENTER Magnesium (11/08/2018 4:28 AM CDT)Only the most recent of7 resultswithin the time period is included. Magnesium 1.7 1.6 - 2.6 mg/dL [facility] Specimen Blood Performing Organization Address City/State/Zipcode Phone Number [address] [address] [place] Basic Metabolic Panel (11/08/2018 4:28 AM CDT)Only the most recent of6 resultswithin the time period is included. Sodium 137 136 - 145 meq/L [facility] Potassium 3.7 3.5 - 5.1 meq/L [facility] Chloride 100 98 - 107 meq/L [facility] CO2 25 22 - 29 meq/L [facility] BUN 13 7 - 21 mg/dL [facility] Creatinine 0.71 0.57 - 1.25 mg/dL [facility] Glucose 99 70 - 105 mg/dL [facility] Calcium 9.1 8.4 - 10.2 mg/dL [facility] EGFR 139Comment: ESTIMATED GFR IS mL/min/1.73 sq m [facility] NOT ACCURATE CREATININE [facility] CLEARANCE IN PREDICTING GLOMERULAR FILTRATION RATE. ESTIMATED GFR IS NOT APPLICABLE FOR DIALYSIS PATIENTS. Specimen Blood Performing Organization Address City/State/Zipcode Phone Number [facility] [address] [place] [address] [phone] CENTER 2D Echo W/Doppler(CW/PW/Color) (11/07/2018 10:01 PM CDT) Ejection Fraction [facility] Specimen Narrative Performed At Transthoracic Echocardiography Report (TTE) [facility] Demographics Patient NameGONGOYO DUBOIS Date of Study11/07/2018 Gender Other Visit [id number] Race Unknown [id number] Number Date of 1960 ReferringMicmerry Matute Physician Age 58 year(s) SonographerSgeneva Almeida [facility], RVT Blood Typer Christo Harvey,Interpreting Aryan Cotton [facility] PhysicianMD Procedure Type of Study TTE [...] Procedure Note Interface, External Ris In - 12/21/2018 10:28 AM CDT Transthoracic Echocardiography Report (TTE) Demographics Patient Name GOYO CORREA Date of Study 11/07/2018 Gender Other Visit Number [id number] Race Unknown Room Number 1031 Number Date of 1960 Referring Shorty Matute Physician Age 58 year(s) 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 POC-Glucose Meter 116 (H)Comment: TESTED AT 70 - 110 mg/dL [address] [address] Specimen Blood Performing Organization Address City/[facility] Phone Number [address] [address] [phone] CENTER XR chest 1 view portable / bedside (11/06/2018 7:28 AM CDT)Only the most recent of5 resultswithin the time period is included. Specimen Narrative Performed At FINAL REPORT [facility] INDICATION: pl effusion COMPARISON: November 05 TECHNIQUE: [...] MD Report Verified Date/Time:11/06/2018 08:37:04 Reading Location: [facility] B1 C013X Ortho Consult Reading Room Procedure [...] Report Verified Date/Time: 11/06/2018 08:37:04 Reading Location: [facility] [id number] Ortho Consult Reading Room Performing Organization Address City/State/Zipcode Phone Number [facility] PERIPHERAL VASCULAR REPORT - SCAN (11/05/2018 9:20 PM PROCEDURES NURSE) Narrative Performed At CBC (Hemogram only) (11/05/2018 3:17 AM PROCEDURES NURSE)Only the most recent of2 resultswithin the time period is included. WBC 18.8 (H) 3.5 - 10.5 K/L [facility] RBC 3.32 (L) 4.63 - 6.08 M/L [facility] Hemoglobin 10.0 (L) 13.7 - 17.5 GM/DL [facility] Hematocrit 30.4 (L) 40.1 - 51.0 % [facility] MCV 91.6 79.0 - 92.2 fL [facility] MCH 30.1 25.7 - 32.2 pg [facility] MCHC 32.9 32.3 - 36.5 GM/DL [facility] RDW 13.1 11.6 - 14.4 % [facility] Platelets 190 150 - 450 K/CU MM [facility] MPV 10.3 9.4 - 12.4 fL [facility] nRBC 0 0 - 0 /100 WBC [facility] Specimen Blood Performing Organization Address City/State/Zipcode Phone Number [facility] [address] [place] [address] CENTER Phosphorus (11/05/2018 3:17 AM PROCEDURES NURSE)Only the most recent of3 resultswithin the time period is included. Phosphorus 2.5 2.3 - 4.7 mg/dL [facility] Specimen Blood Performing Organization Address City/State/Zipcode Phone Number [facility] [address] [place] [address] CENTER TRANSFUSION SERVICE REPORT - SCAN (11/04/2018 6:03 PM PROCEDURES NURSE) Narrative Performed At Carotid doppler bilateral (11/04/2018 12:20 PM PROCEDURES NURSE) Ejection Fraction [facility] Specimen Impressions Performed At Right Impression [facility] Not obtained lines Left Impression 1. There is 50-69% diameter reduction ([id number] % by 2-D measurement) in the internal [...] Performed At LAB - Carotid Duplex Study [facility] Patient NameGOYO CORREA Date of Study 11/04/2018 Age 58 Visit [id number] GenderMale Date of 1960 Referring Sergio Corrigan,Room Number C826 Physician FEL Carpet Mechanic Santana Clement, Michelle REYES Procedure Type of Study: Cerebral: Carotid, CAROTID DOPPLER, BILATERAL. Indications for Study:Screening . Patient Status:Routine. Study Location:Portable. Technical Quality:Adequate visualization. Risk Factors History of Disease +---------+----+ + !Diagnosis!Date!Comments ! +---------+----+ + !Other!!Cardiac Disease, Invasive Line (Right Neck)! +---------+----+ + Procedure Note Interface, External Ris In - 11/05/2018 11:21 AM PROCEDURES NURSE PV LAB - Carotid Duplex Study Demographics Patient Name GOYO CORREA Date of Study 11/04/2018 Age 58 Visit Number [id number] Gender Male Accession Number [id number] Date of 1960 Referring Sergio Hansel Shivam Mandafrances, Room Number C826 Physician BLANCA Carpet Mechanic Santana Kimble Interpreting Ana Clement T Physician Procedure Type of Study: Cerebral: Carotid, CAROTID DOPPLER, BILATERAL. Indications for Study:Screening . Patient Status:Routine. Study Location:Portable. Technical Quality:Adequate visualization. Risk Factors History of Disease +---------+----+ + !Diagnosis!Date!Comments ! +---------+----+ + !Other ! !Cardiac Disease, Invasive Line (Right Neck) ! +---------+----+ + Impressions Right Impression Not obtained lines Left Impression 1. There is 50-69% diameter reduction ([id number] % by 2-D measurement) in the internal [...] Additional Measurements:ICAPSV/CCAPSV 1.84.ICAEDV/CCAEDV 1.37. Performing Organization Address City/[facility]/Zipcode Phone Number [facility] aPTT (11/04/2018 5:23 AM PROCEDURES NURSE)Only the most recent of3 resultswithin the time period is included. PTT 32.3 22.5 - 36.0 seconds [facility] CENTER Specimen Blood Performing Organization Address City/[facility]/Zipcode Phone Number [facility] [address] [place] [address] CENTER Prothromin time/INR (11/04/2018 5:23 AM PROCEDURES NURSE)Only the most recent of3 resultswithin the time period is included. Protime 14.9 (H) 11.7 - 14.7 seconds [facility] INR 1.2 <=5.9 [facility] Specimen Blood Narrative Performed At RECOMMENDED COUMADIN/WARFARIN INR THERAPY [facility] RANGES STANDARD DOSE: 2.0 - 3.0 Includes: PROPHYLAXIS for venous thrombosis, systemic embolization; TREATMENT for venous thrombosis and/or pulmonary embolus. HIGH RISK: Target INR is 2.5-3.5 for patients with mechanical heart valves. Performing Organization Address City/[facility] Phone Number [address] [address] [phone] CENTER Fibrinogen (11/04/2018 5:23 AM PROCEDURES NURSE)Only the most recent of2 resultswithin the time period is included. Fibrinogen 264 225 - 434 mg/dl [facility] Specimen Blood Performing Organization Address [facility] Phone Number [address] [address] [place] Blood gas, arterial (11/04/2018 2:39 AM PROCEDURES NURSE)Only the most recent of8 resultswithin the time period is included. pH, Arterial 7.42 7.35 - 7.45 [facility] pCO2, Arterial 41 35 - 45 mmHg [facility] pO2, Arterial 192 (H) 80 - 90 mmHg [facility] O2 Sat, Arterial 99.3 (H) 96.0 - 97.0 % [facility] HCO3, Arterial 26 21 - 29 mmol/L [facility] Base Excess, Arterial 1.1 -2.0 - 3.0 mmol/L [facility] Patient Temperature 36.8 C [facility] FIO2 100.0 % [facility] Specimen Blood, Arterial Performing Organization Address [facility] Phone Number [facility] [address] [address] [place] Potassium-Stat Lab (11/03/2018 8:56 PM PROCEDURES NURSE)Only the most recent of4 resultswithin the time period is included. Potassium 3.7 3.6 - 5.5 meq/L [facility] Specimen Blood, Arterial Performing Organization Address [facility] Phone Number [address] [address] [place] Sodium Na-Stat Lab (11/03/2018 8:56 PM PROCEDURES NURSE)Only the most recent of4 resultswithin the time period is included. Sodium 136 135 - 148 meq/L [facility] Specimen Blood, Arterial Performing Organization Address [facility] Phone Number [address] [address] [place] Glucose-Stat Lab (11/03/2018 8:56 PM PROCEDURES NURSE)Only the most recent of4 resultswithin the time period is included. Glucose 107 70 - 110 mg/dL [facility] Specimen Blood, Arterial Performing Organization Address [facility] Phone Number [address] [address] CENTER HGB/HCT (H&H)-Stat Lab (11/03/2018 8:56 PM PROCEDURES NURSE)Only the most recent of4 resultswithin the time period is included. Hemoglobin 9.7 (L) 13.0 - 16.8 g/dL [facility] Hematocrit 29.0 (L) 40.0 - 50.0 % [facility] Specimen Blood, Arterial Performing Organization Address [facility] Phone Number [address] [address] [place] Oxygen saturation, measured (11/03/2018 7:14 PM PROCEDURES NURSE) O2 Saturation (Measured) 79.9 % [facility] Specimen Blood Performing Organization Address [facility] [facility] Phone Number [address] [address] [place] Calcium, Ionized (11/03/2018 7:14 PM PROCEDURES NURSE) Calcium, Ion 1.17 1.12 - 1.27 mmol/L [facility] pH, Blood 7.29 [facility] Specimen Blood Performing Organization Address City/[facility] Cent[facility]ode Phone Number [address] [address] [phone] [place] Lactic acid, arterial, whole blood (11/03/2018 7:14 PM PROCEDURES NURSE) Lactate, Art 1.6 0.5 - 2.2 mmol/L [facility] Specimen Blood, Arterial Performing Organization Address [facility] Centercopr Phone Number [address] [address] [place] ABORH, manual (11/03/2018 12:37 PM PROCEDURES NURSE) ABO Grouping [facility] Rh Factor [facility] Specimen Blood Performing Organization Address [facility] Cent[facility]ode Phone Number [address] [address] Manual Differential (11/03/2018 11:52 AM PROCEDURES NURSE) % Neutros 68 % [facility] % Lymphs 24 % [facility] % Monos 5 % [facility] % Bands 1 0 - 10 % [facility] % Atypical Lymphs 2 (H) 0 - 0 % [facility] # Neutros 10.47 (H) 1.78 - 5.38 K/ul [facility] # Lymphs 3.70 (H) 1.32 - 3.57 K/ul [facility] # Monos 0.77 0.30 - 0.82 K/uL [facility] # Bands 0.15 0.00 - 0.80 K/uL [facility] # Atypical Lymphs 0.31 (H) 0.00 - 0.00 K/uL [facility] Total Counted 100 [facility] RBC Morphology Normal [facility] WBC Morphology Normal [facility] Platelet Morphology Normal [facility] Artifact Present [facility] Platelet Conc Adequate [facility] Specimen Blood Narrative Performed At Received comment: [facility] User comments: Slide comments: Performing Organization Address City/[facility] Centercode Phone Number [address] [address] CENTER Type and screen, automated (11/03/2018 11:52 AM PROCEDURES NURSE) ABO/RH AUTOMATED (BEAKER) O [facility] Ab Scrn [facility] Specimen Blood Performing Organization Address City/[facility]/Zipcode Phone Number [address] [address] [phone] Hemoglobin A1c (11/03/2018 11:52 AM PROCEDURES NURSE) Hemoglobin A1C 5.5 4.3 - 6.1 % [facility] Specimen Blood Performing Organization Address City/State/Zipcode Phone Number [facility] [address] [place] [address] Lipid panel (11/03/2018 11:52 AM PROCEDURES NURSE) Triglycerides 168 mg/dL [facility] Cholesterol 225 mg/dL [facility] HDL 45 mg/dL [facility] LDL Calculated 146 mg/dL [facility] Specimen Blood Narrative Performed At Triglyceride Reference Range: [facility] Low Risk <150 [id number] High Risk 200-499 Very High Risk>=500 Cholesterol Reference Range: Low Risk <200 [id number] High Risk>240 HDL Cholesterol Reference Range: Low Risk >=60 High Risk <40 LDL Cholesterol Reference Range: Optimal<100 Near [id number] Very High >=190 Performing Organization Address City/State/Zipcode Phone Number [facility] [address] [place] [address] CENTER Comprehensive metabolic panel (11/03/2018 11:52 AM PROCEDURES NURSE) Protein, Total 7.6 6.0 - 8.3 gm/dL [facility] Albumin 4.1 3.5 - 5.0 g/dL [facility] Alkaline Phosphatase 76 40 - 150 U/L [facility] Total Bilirubin 0.3 0.2 - 1.2 mg/dL [facility] Sodium 143 136 - 145 meq/L [facility] Potassium 3.6 3.5 - 5.1 meq/L [facility] Chloride 108 (H) 98 - 107 meq/L [facility] CO2 25 22 - 29 meq/L [facility] BUN 14 7 - 21 mg/dL [facility] Creatinine 0.74 0.57 - 1.25 mg/dL [facility] Glucose 88 70 - 105 mg/dL [facility] Calcium 9.6 8.4 - 10.2 mg/dL [facility] AST 17 5 - 34 U/L [facility] ALT 18 6 - 55 U/L [facility] EGFR 132Comment: ESTIMATED mL/min/1.[address] [facility] GFR IS NOT ACCURATE [facility] CREATININE CLEARANCE IN PREDICTING GLOMERULAR FILTRATION RATE. ESTIMATED GFR IS NOT APPLICABLE FOR DIALYSIS PATIENTS. Specimen Blood Performing Organization Address City/State/Zipcode Phone Number [address] [address] [place] POC ACTIVATED CLOTTING TIME (11/03/2018 10:55 AM PROCEDURES NURSE)Only the most recent of4 resultswithin the time period is included. Activated Clotting Time 98Comment: TESTED AT sec [address] [address] Specimen Blood Performing Organization Address [facility]erc[facility] Phone Number [address] [address] [place] Electrocardiogram, 12-lead (11/03/2018 10:45 AM PROCEDURES NURSE) Specimen Narrative Performed At Ventricular Rate 51 BPM [facility] MUSE Atrial Rate 51 BPM P-R Interval 132 ms QRS Duration 94 ms Q-T Interval 470 ms QTC Calculation(Bazett) 433 ms P [place] 8 degrees R [place] 17 degrees T [place] 35 degrees Sinus bradycardia Within normal limits No previous ECGs available Confirmed by MD Campos Roberto ([id number]) on 11/03/2018 2:14:48 PM Procedure Note Interface, External Ris In - 11/03/2018 2:15 PM PROCEDURES NURSE Ventricular Rate 51 BPM Atrial Rate 51 BPM P-R Interval 132 ms QRS Duration 94 ms Q-T Interval 470 ms QTC Calculation(Bazett) 433 ms P [place] 8 degrees R [place] 17 degrees T [place] 35 degrees Sinus bradycardia Within normal limits No previous ECGs available Confirmed by MD Campos Roberto ([id number]) on 11/03/2018 2:14:48 PM Performing Organization Address City/State/Zipcode Phone Number GE MUSE after 03/11/2018 Insurance Payer Benefit Plan / Subscriber ID Type Phone Address Group BLUE CROSS/BLUE [employer]BS PPO POS EPO xxxxxxxxxxxx PPO [phone] [address] [place] [address] (Home) [place] [address] Advance Directives For more information, please contact:[place] [address] [address] [place], [place] [phone] Code Status Date Activated Date Inactivated Comments Full Code 11/03/2018 10:42 AM 11/08/2018 7:20 PM This code status was determined by: Patient
--- OUTSIDE RECORDS SUMMARY | 2019-03-12 20:53 | XMS REPORT ---
:1960 [facility] Address [address] [place] [address] Care Team Providers Name Role Phone LOWELL [...] Value Reference Range Comments MAGNESIUM (BEAKER) (test ymkh=806) 1.7 mg/dL 1.6-2.6 BASIC METABOLIC [id number] 05:26:00 Test Item Value Reference Range Comments SODIUM (BEAKER) (test 137 meq/L 136-145 wywb=122) POTASSIUM (BEAKER) (test 3.7 meq/L 3.5-5.1 lohh=575) CHLORIDE (BEAKER) (test 100 meq/L 98-107 imxa=061) CO2 (BEAKER) (test 25 meq/L 22-29 snxi=184) BLOOD UREA NITROGEN 13 mg/dL 7-21 (BEAKER) (test qelp=590) CREATININE (BEAKER) (test 0.71 mg/dL 0.57-1.25 zkcu=062) GLUCOSE RANDOM (BEAKER) 99 mg/dL 70-105 (test efeu=390) CALCIUM (BEAKER) (test 9.1 mg/dL 8.4-10.2 toje=405) EGFR (BEAKER) (test 139 mL/min/1.73 sq m ESTIMATED GFR IS NOT txth=8084) ACCURATE CREATININE CLEARANCE IN PREDICTING GLOMERULAR FILTRATION RATE. ESTIMATED GFR IS NOT APPLICABLE FOR DIALYSIS PATIENTS. CBC W/PLT COUNT & AUTO [id number] 05:04:00 Test Item Value Reference Range Comments WHITE BLOOD CELL COUNT (BEAKER) (test qbvw=636) 11.5 K/ L 3.5-10.5 RED BLOOD CELL COUNT (BEAKER) (test fbbc=627) 3.19 M/ L 4.63-6.08 HEMOGLOBIN (BEAKER) (test sctn=710) 9.4 GM/DL 13.7-17.5 HEMATOCRIT (BEAKER) (test qovm=945) 29.0 % 40.1-51.0 MEAN CORPUSCULAR VOLUME (BEAKER) (test ckbo=805) 90.9 fL 79.0-92.2 MEAN CORPUSCULAR HEMOGLOBIN (BEAKER) (test 29.5 pg 25.7-32.2 qgqy=897) MEAN CORPUSCULAR HEMOGLOBIN CONC (BEAKER) (test 32.4 GM/DL 32.3-36.5 vamx=181) RED CELL DISTRIBUTION WIDTH (BEAKER) (test 12.9 % 11.6-14.4 ktla=552) PLATELET COUNT (BEAKER) (test igan=147) 310 K/CU MM 150-450 MEAN PLATELET VOLUME (BEAKER) (test fzql=510) 10.3 fL 9.4-12.4 NUCLEATED RED BLOOD CELLS (BEAKER) (test 0 /100 WBC 0-0 sgzb=772) NEUTROPHILS RELATIVE PERCENT (BEAKER) (test 65 % rnsr=036) LYMPHOCYTES RELATIVE PERCENT (BEAKER) (test 21 % muiy=907) MONOCYTES RELATIVE PERCENT (BEAKER) (test 9 % effg=590) EOSINOPHILS RELATIVE PERCENT (BEAKER) (test 4 % yfzh=961) BASOPHILS RELATIVE PERCENT (BEAKER) (test 0 % nwof=927) NEUTROPHILS ABSOLUTE COUNT (BEAKER) (test 7.47 K/ L 1.78-5.38 fwte=102) LYMPHOCYTES ABSOLUTE COUNT (BEAKER) (test 2.39 K/ L 1.32-3.57 kloc=834) MONOCYTES ABSOLUTE COUNT (BEAKER) (test 1.08 K/ L 0.30-0.82 pjvo=469) EOSINOPHILS ABSOLUTE COUNT (BEAKER) (test 0.42 K/ L 0.04-0.54 juxe=466) BASOPHILS ABSOLUTE COUNT (BEAKER) (test 0.04 K/ L 0.01-0.08 gqvd=146) IMMATURE GRANULOCYTES-RELATIVE PERCENT (BEAKER) 1 % 0-1 (test mmha=2002) POCT-GLUCOSE [id number] 21:14:00 Test Item Value Reference Range Comments POC-GLUCOSE METER (BEAKER) 116 mg/dL 70-110 TESTED AT [facility] [address] [facility] (test gzmn=8909) [facility] [address] POCT-GLUCOSE [id number] 08:19:00 Test Item Value Reference Range Comments POC-GLUCOSE METER (BEAKER) 115 mg/dL 70-110 TESTED AT [place] [id number] [facility] (test hpja=1959) [facility] [address] [id number] 07:32:00 Test Item Value Reference Range Comments MAGNESIUM (BEAKER) (test lqlr=745) 1.9 mg/dL 1.6-2.6 BASIC METABOLIC [id number] 07:32:00 Test Item Value Reference Range Comments SODIUM (BEAKER) (test 138 meq/L 136-145 gyji=063) POTASSIUM (BEAKER) (test 3.6 meq/L 3.5-5.1 npto=595) CHLORIDE (BEAKER) (test 100 meq/L 98-107 ujfo=740) CO2 (BEAKER) (test 27 meq/L 22-29 kklv=157) BLOOD UREA NITROGEN 11 mg/dL 7-21 (BEAKER) (test dtwj=030) CREATININE (BEAKER) (test 0.62 mg/dL 0.57-1.25 tjwj=018) GLUCOSE RANDOM (BEAKER) 88 mg/dL 70-105 (test ckir=205) CALCIUM (BEAKER) (test 8.7 mg/dL 8.4-10.2 uvmq=658) EGFR (BEAKER) (test 162 mL/min/1.73 sq m ESTIMATED GFR IS NOT onon=5370) ACCURATE CREATININE CLEARANCE IN PREDICTING GLOMERULAR FILTRATION RATE. ESTIMATED GFR IS NOT APPLICABLE FOR DIALYSIS PATIENTS. CBC W/PLT COUNT & AUTO [id number] 06:56:00 Test Item Value Reference Range Comments WHITE BLOOD CELL COUNT (BEAKER) (test fupi=322) 11.5 K/ L 3.5-10.5 RED BLOOD CELL COUNT (BEAKER) (test towh=522) 3.15 M/ L 4.63-6.08 HEMOGLOBIN (BEAKER) (test srsb=174) 9.5 GM/DL 13.7-17.5 HEMATOCRIT (BEAKER) (test egeg=642) 28.6 % 40.1-51.0 MEAN CORPUSCULAR VOLUME (BEAKER) (test cfwp=253) 90.8 fL 79.0-92.2 MEAN CORPUSCULAR HEMOGLOBIN (BEAKER) (test 30.2 pg 25.7-32.2 pxbt=493) MEAN CORPUSCULAR HEMOGLOBIN CONC (BEAKER) (test 33.2 GM/DL 32.3-36.5 ewqr=966) RED CELL DISTRIBUTION WIDTH (BEAKER) (test 13.2 % 11.6-14.4 wzyn=002) PLATELET COUNT (BEAKER) (test btrb=929) 262 K/CU MM 150-450 MEAN PLATELET VOLUME (BEAKER) (test xydv=995) 10.7 fL 9.4-12.4 NUCLEATED RED BLOOD CELLS (BEAKER) (test 0 /100 WBC 0-0 dnsi=498) NEUTROPHILS RELATIVE PERCENT (BEAKER) (test 63 % sxub=615) LYMPHOCYTES RELATIVE PERCENT (BEAKER) (test 22 % dech=380) MONOCYTES RELATIVE PERCENT (BEAKER) (test 11 % ucjw=058) EOSINOPHILS RELATIVE PERCENT (BEAKER) (test 4 % gwnp=875) BASOPHILS RELATIVE PERCENT (BEAKER) (test 0 % qxyv=759) NEUTROPHILS ABSOLUTE COUNT (BEAKER) (test 7.21 K/ L 1.78-5.38 ggqj=294) LYMPHOCYTES ABSOLUTE COUNT (BEAKER) (test 2.53 K/ L 1.32-3.57 zpjk=607) MONOCYTES ABSOLUTE COUNT (BEAKER) (test 1.21 K/ L 0.30-0.82 ydyz=377) EOSINOPHILS ABSOLUTE COUNT (BEAKER) (test 0.42 K/ L 0.04-0.54 efnp=853) BASOPHILS ABSOLUTE COUNT (BEAKER) (test 0.03 K/ L 0.01-0.08 bwel=777) IMMATURE GRANULOCYTES-RELATIVE PERCENT (BEAKER) 0 % 0-1 (test puln=9517) POCT-GLUCOSE [id number] 21:59:00 Test Item Value Reference Range Comments POC-GLUCOSE METER (BEAKER) 104 mg/dL 70-110 TESTED AT [facility] [address] [facility] (test hdxc=7167) [facility] [address] POCT-GLUCOSE [id number] 13:02:00 Test Item Value Reference Range Comments POC-GLUCOSE METER (BEAKER) 130 mg/dL 70-110 TESTED AT [address] (test tfhz=9748) [facility] [address] RAD, CHEST, 1 VIEW, NON [id number] 08:37:00Reason for exam:->pl effusionShould this be performed [...] MDReport Verified Date/Time: 11/06/2018 08:37:04 Reading Location: [address] Ortho Consult Reading Room POCT-GLUCOSE [id number] 08:29:00 Test Item Value Reference Range Comments POC-GLUCOSE METER (BEAKER) 115 mg/dL 70-110 TESTED AT [address] (test scri=2827) [place] [id number] CBC W/PLT COUNT & AUTO [id number] 07:26:00 Test Item Value Reference Range Comments WHITE BLOOD CELL COUNT (BEAKER) (test nmlk=344) 14.9 K/ L 3.5-10.5 RED BLOOD CELL COUNT (BEAKER) (test onff=894) 3.27 M/ L 4.63-6.08 HEMOGLOBIN (BEAKER) (test saoj=181) 9.8 GM/DL 13.7-17.5 HEMATOCRIT (BEAKER) (test tkso=488) 30.5 % 40.1-51.0 MEAN CORPUSCULAR VOLUME (BEAKER) (test fajw=367) 93.3 fL 79.0-92.2 MEAN CORPUSCULAR HEMOGLOBIN (BEAKER) (test 30.0 pg 25.7-32.2 pllb=036) MEAN CORPUSCULAR HEMOGLOBIN CONC (BEAKER) (test 32.1 GM/DL 32.3-36.5 gnrt=389) RED CELL DISTRIBUTION WIDTH (BEAKER) (test 13.1 % 11.6-14.4 vyka=006) PLATELET COUNT (BEAKER) (test tbii=670) 210 K/CU MM 150-450 MEAN PLATELET VOLUME (BEAKER) (test udbj=338) 10.5 fL 9.4-12.4 NUCLEATED RED BLOOD CELLS (BEAKER) (test 0 /100 WBC 0-0 zdsp=497) NEUTROPHILS RELATIVE PERCENT (BEAKER) (test 75 % isus=117) LYMPHOCYTES RELATIVE PERCENT (BEAKER) (test 13 % tnxv=318) MONOCYTES RELATIVE PERCENT (BEAKER) (test 10 % xtgc=669) EOSINOPHILS RELATIVE PERCENT (BEAKER) (test 1 % hzct=517) BASOPHILS RELATIVE PERCENT (BEAKER) (test 0 % brvc=333) NEUTROPHILS ABSOLUTE COUNT (BEAKER) (test 11.14 K/ L 1.78-5.38 ymlf=059) LYMPHOCYTES ABSOLUTE COUNT (BEAKER) (test 1.93 K/ L 1.32-3.57 tzya=609) MONOCYTES ABSOLUTE COUNT (BEAKER) (test 1.48 K/ L 0.30-0.82 gogd=651) EOSINOPHILS ABSOLUTE COUNT (BEAKER) (test 0.21 K/ L 0.04-0.54 bpap=677) BASOPHILS ABSOLUTE COUNT (BEAKER) (test 0.04 K/ L 0.01-0.08 hvzp=691) IMMATURE GRANULOCYTES-RELATIVE PERCENT (BEAKER) 1 % 0-1 (test omhh=0391) BASIC METABOLIC [id number] 07:03:00 Test Item Value Reference Range Comments SODIUM (BEAKER) (test 136 meq/L 136-145 xaqn=860) POTASSIUM (BEAKER) (test 3.8 meq/L 3.5-5.1 qqeo=525) CHLORIDE (BEAKER) (test 100 meq/L 98-107 zzke=233) CO2 (BEAKER) (test 27 meq/L 22-29 njto=205) BLOOD UREA NITROGEN 10 mg/dL 7-21 (BEAKER) (test bqrp=513) CREATININE (BEAKER) (test 0.68 mg/dL 0.57-1.25 ycyq=556) GLUCOSE RANDOM (BEAKER) 102 mg/dL 70-105 (test xnft=957) CALCIUM (BEAKER) (test 9.1 mg/dL 8.4-10.2 hpfg=094) EGFR (BEAKER) (test 146 mL/min/1.73 sq m ESTIMATED GFR IS NOT abde=1010) ACCURATE CREATININE CLEARANCE IN PREDICTING GLOMERULAR FILTRATION RATE. ESTIMATED GFR IS NOT APPLICABLE FOR DIALYSIS PATIENTS. POCT-GLUCOSE [id number] 21:46:00 Test Item Value Reference Range Comments POC-GLUCOSE METER (BEAKER) 137 mg/dL 70-110 TESTED AT [address] (test xhxx=8864) [place] [address] RAD, CHEST, 1 VIEW, NON [id number] 11:37:00Reason for exam:-> EffusionShould this be performed at the bedside?->YesFINAL REPORT AP chest HISTORY: Effusion. COMPARISON: 11/04/2018. IMPRESSION: Supportive lines unchanged. Mild interstitial prominence. No large effusion. No pneumothorax. Signed: Amauri Eduardo MDReport Verified Date/Time: 11/05/2018 11:37:34 Reading Location: [address] Transitional Reading Room POCT-GLUCOSE [id number] 06:18:00 Test Item Value Reference Range Comments POC-GLUCOSE METER (BEAKER) 113 mg/dL 70-110 TESTED AT [address] (test zhux=5867) [place] [address] [id number] 04:02:00 Test Item Value Reference Range Comments PHOSPHORUS (BEAKER) (test hzsm=668) 2.5 mg/dL 2.3-4.7 [id number] 04:02:00 Test Item Value Reference Range Comments MAGNESIUM (BEAKER) (test qbcw=719) 1.9 mg/dL 1.6-2.6 BASIC METABOLIC [id number] 04:02:00 Test Item Value Reference Range Comments SODIUM (BEAKER) (test 134 meq/L 136-145 drzw=855) POTASSIUM (BEAKER) (test 4.1 meq/L 3.5-5.1 glqw=931) CHLORIDE (BEAKER) (test 103 meq/L 98-107 qpgx=373) CO2 (BEAKER) (test 25 meq/L 22-29 calx=062) BLOOD UREA NITROGEN 9 mg/dL 7-21 (BEAKER) (test byin=387) CREATININE (BEAKER) (test 0.70 mg/dL 0.57-1.25 cjje=501) GLUCOSE RANDOM (BEAKER) 109 mg/dL 70-105 (test aihq=471) CALCIUM (BEAKER) (test 8.4 mg/dL 8.4-10.2 ycsz=156) EGFR (BEAKER) (test 141 mL/min/1.73 sq m ESTIMATED GFR IS NOT urvd=8277) ACCURATE CREATININE CLEARANCE IN PREDICTING GLOMERULAR FILTRATION RATE. ESTIMATED GFR IS NOT APPLICABLE FOR DIALYSIS PATIENTS. CBC (HEMOGRAM ONLY)2018-11-05 03:33:00 Test Item Value Reference Range Comments WHITE BLOOD CELL COUNT (BEAKER) (test hvsf=787) 18.8 K/ L 3.5-10.5 RED BLOOD CELL COUNT (BEAKER) (test jdym=929) 3.32 M/ L 4.63-6.08 HEMOGLOBIN (BEAKER) (test hydj=864) 10.0 GM/DL 13.7-17.5 HEMATOCRIT (BEAKER) (test timn=742) 30.4 % 40.1-51.0 MEAN CORPUSCULAR VOLUME (BEAKER) (test qnxb=596) 91.6 fL 79.0-92.2 MEAN CORPUSCULAR HEMOGLOBIN (BEAKER) (test 30.1 pg 25.7-32.2 ejzp=434) MEAN CORPUSCULAR HEMOGLOBIN CONC (BEAKER) (test 32.9 GM/DL 32.3-36.5 csqk=916) RED CELL DISTRIBUTION WIDTH (BEAKER) (test 13.1 % 11.6-14.4 oxtr=220) PLATELET COUNT (BEAKER) (test jtuh=601) 190 K/CU MM 150-450 MEAN PLATELET VOLUME (BEAKER) (test wvie=642) 10.3 fL 9.4-12.4 NUCLEATED RED BLOOD CELLS (BEAKER) (test 0 /100 WBC 0-0 iynf=726) [id number] 15:02:00 Test Item Value Reference Range Comments MAGNESIUM (BEAKER) (test gowm=291) 2.4 mg/dL 1.6-2.6 Check Serum Magnesium level 2 hours after IV magnesium replacement.POCT-GLUCOSE [id number] 13:14:00 Test Item Value Reference Range Comments POC-GLUCOSE METER (BEAKER) 120 mg/dL 70-110 TESTED AT [address] (test sxhl=1540) [place] [id number] HEMOGLOBIN [id number] 11:10:00 Test Item Value Reference Range Comments HEMOGLOBIN A1C (BEAKER) (test trdr=024) 5.5 % 4.3-6.1 RAD, CHEST, 1 VIEW, NON [id number] 07:17:00while patient is intubated or has chest [...] MDReport Verified Date/ Time:11/04/2018 07:17:57 Reading Location: [facility] Radiology Reading Room POCT-GLUCOSE [id number] 06:31:00 Test Item Value Reference Range Comments POC-GLUCOSE METER (BEAKER) 125 mg/dL 70-110 TESTED AT [address] (test szwh=3017) [place] [address] [id number] 06:26:00 Test Item Value Reference Range Comments ACTIVATED CLOTTING TIME (BEAKER) 98 sec TESTED AT [address] (test gomo=847) [place] [address] [id number] 06:26:00 Test Item Value Reference Range Comments ACTIVATED CLOTTING TIME 400 sec TESTED AT [place] [address] [address] (BEAKER) (test gssc=926) [place] [address] [id number] 06:26:00 Test Item Value Reference Range Comments ACTIVATED CLOTTING TIME 406 sec TESTED AT [place] [address] [address] (BEAKER) (test cvje=738) [place] [address] [id number] 06:26:00 Test Item Value Reference Range Comments ACTIVATED CLOTTING TIME 439 sec TESTED AT [facility] [address] (BEAKER) (test untt=744) [facility] [address] [id number] 06:13:00 Test Item Value Reference Range Comments FIBRINOGEN LEVEL (BEAKER) (test qdad=650) 264 mg/dl 225-434 [id number] 06:13:00 Test Item Value Reference Range Comments PARTIAL THROMBOPLASTIN TIME (BEAKER) (test 32.3 seconds 22.5-36.0 clpz=923) PROTHROMBIN [id number] 06:12:00 Test Item Value Reference Range Comments PROTIME (BEAKER) (test gths=186) 14.9 seconds 11.7-14.7 INR (BEAKER) (test ijrh=377) 1.2 <=5.9 RECOMMENDED COUMADIN/WARFARIN INR THERAPY RANGESSTANDARD DOSE: 2.0 - 3.0 Includes: PROPHYLAXIS forvenous thrombosis, systemic embolization; TREATMENT for venous thrombosis and/or pulmonary embolus.HIGH RISK: Target INR is 2.5-3.5 for patients with mechanical heart valves.BASIC METABOLIC [id number] 03:03: 00 Test Item Value Reference Range Comments SODIUM (BEAKER) (test 141 meq/L 136-145 hkmv=552) POTASSIUM (BEAKER) (test 4.0 meq/L 3.5-5.1 pldf=376) CHLORIDE (BEAKER) (test 110 meq/L 98-107 ibgm=291) CO2 (BEAKER) (test 24 meq/L 22-29 qmur=682) BLOOD UREA NITROGEN 11 mg/dL 7-21 (BEAKER) (test ugwu=223) CREATININE (BEAKER) (test 0.67 mg/dL 0.57-1.25 nlip=974) GLUCOSE RANDOM (BEAKER) 125 mg/dL 70-105 (test qdql=395) CALCIUM (BEAKER) (test 7.5 mg/dL 8.4-10.2 usto=231) EGFR (BEAKER) (test 148 mL/min/1.73 sq m ESTIMATED GFR IS NOT pqhg=0957) ACCURATE CREATININE CLEARANCE IN PREDICTING GLOMERULAR FILTRATION RATE. ESTIMATED GFR IS NOT APPLICABLE FOR DIALYSIS PATIENTS. [id number] 03:00:00 Test Item Value Reference Range Comments PHOSPHORUS (BEAKER) (test qlgm=844) 2.8 mg/dL 2.3-4.7 [id number] 03:00:00 Test Item Value Reference Range Comments MAGNESIUM (BEAKER) (test hbus=090) 2.1 mg/dL 1.6-2.6 BLOOD GAS, [id number] 02:53:00 Test Item Value Reference Range Comments PH ARTERIAL (BEAKER) (test awxi=716) 7.42 7.35-7.45 PCO2 ARTERIAL (BEAKER) (test ovwh=927) 41 mmHg 35-45 PO2 ARTERIAL (BEAKER) (test dwin=781) 192 mmHg 80-90 O2 SATURATION ARTERIAL (BEAKER) (test ggke=495) 99.3 % 96.0-97.0 HCO3 ARTERIAL (BEAKER) (test qgnk=351) 26 mmol/L 21-29 BASE EXCESS ARTERIAL (BEAKER) (test qjgy=494) 1.1 mmol/L -2.0-3.0 PATIENT TEMPERATURE (BEAKER) (test ytth=6755) 36.8 C FIO2 (BEAKER) (test vaec=9549) 100.0 % CBC (HEMOGRAM ONLY)2018-11-04 02:47:00 Test Item Value Reference Range Comments WHITE BLOOD CELL COUNT (BEAKER) (test xgpn=874) 16.1 K/ L 3.5-10.5 RED BLOOD CELL COUNT (BEAKER) (test kkck=097) 3.28 M/ L 4.63-6.08 HEMOGLOBIN (BEAKER) (test nekn=766) 9.9 GM/DL 13.7-17.5 HEMATOCRIT (BEAKER) (test lpes=560) 30.4 % 40.1-51.0 MEAN CORPUSCULAR VOLUME (BEAKER) (test dssb=707) 92.7 fL 79.0-92.2 MEAN CORPUSCULAR HEMOGLOBIN (BEAKER) (test 30.2 pg 25.7-32.2 bqha=722) MEAN CORPUSCULAR HEMOGLOBIN CONC (BEAKER) (test 32.6 GM/DL 32.3-36.5 kfuu=832) RED CELL DISTRIBUTION WIDTH (BEAKER) (test 13.3 % 11.6-14.4 hdwh=749) PLATELET COUNT (BEAKER) (test kagn=879) 214 K/CU MM 150-450 MEAN PLATELET VOLUME (BEAKER) (test sdcz=790) 9.7 fL 9.4-12.4 NUCLEATED RED BLOOD CELLS (BEAKER) (test 0 /100 WBC 0-0 yxvv=720) POCT-GLUCOSE [id number] 00:03:00 Test Item Value Reference Range Comments POC-GLUCOSE METER (BEAKER) 159 mg/dL 70-110 TESTED AT [facility] [address] [facility] (test rowz=6881) [facility] [address] BLOOD GAS, [id number] 22:48:00 Test Item Value Reference Range Comments PH ARTERIAL (BEAKER) (test hqah=832) 7.41 7.35-7.45 PCO2 ARTERIAL (BEAKER) (test ikgw=948) 35 mmHg 35-45 PO2 ARTERIAL (BEAKER) (test oked=655) 69 mmHg 80-90 O2 SATURATION ARTERIAL (BEAKER) (test krhe=903) 95.0 % 96.0-97.0 HCO3 ARTERIAL (BEAKER) (test wnxz=083) 22 mmol/L 21-29 BASE EXCESS ARTERIAL (BEAKER) (test vbgu=844) -2.6 mmol/L -2.0-3.0 PATIENT TEMPERATURE (BEAKER) (test xyah=4933) 35.7 C FIO2 (BEAKER) (test vore=1824) 80.0 % BLOOD GAS, [id number] 22:01:00 Test Item Value Reference Range Comments PH ARTERIAL (BEAKER) (test ugqo=168) 7.33 7.35-7.45 PCO2 ARTERIAL (BEAKER) (test mljt=268) 42 mmHg 35-45 PO2 ARTERIAL (BEAKER) (test osbt=650) 64 mmHg 80-90 O2 SATURATION ARTERIAL (BEAKER) (test iugv=565) 93.1 % 96.0-97.0 HCO3 ARTERIAL (BEAKER) (test xldz=924) 22 mmol/L 21-29 BASE EXCESS ARTERIAL (BEAKER) (test llwy=401) -4.7 mmol/L -2.0-3.0 PATIENT TEMPERATURE (BEAKER) (test oxqh=7888) 35.1 C FIO2 (BEAKER) (test fnzc=0982) 40.0 % BLOOD GAS, [id number] 21:01:00 Test Item Value Reference Range Comments PH ARTERIAL (BEAKER) (test ileo=882) 7.40 7.35-7.45 PCO2 ARTERIAL (BEAKER) (test bwvb=237) 41 mmHg 35-45 PO2 ARTERIAL (BEAKER) (test bzul=293) 66 mmHg 80-90 O2 SATURATION ARTERIAL (BEAKER) (test shwn=159) 95.1 % 96.0-97.0 HCO3 ARTERIAL (BEAKER) (test prrg=987) 25 mmol/L 21-29 BASE EXCESS ARTERIAL (BEAKER) (test eips=548) -0.2 mmol/L -2.0-3.0 PATIENT TEMPERATURE (BEAKER) (test siww=8088) 34.4 C FIO2 (BEAKER) (test wqym=6108) 50.0 % HGB/HCT (H&H) - STAT [id number] 21:01:00 Test Item Value Reference Range Comments HEMOGLOBIN (BEAKER) (test zipd=291) 9.7 g/dL 13.0-16.8 HEMATOCRIT (BEAKER) (test zgpp=882) 29.0 % 40.0-50.0 GLUCOSE-STAT [id number] 20:59:00 Test Item Value Reference Range Comments GLUCOSE RANDOM (BEAKER) (test ezmm=693) 107 mg/dL 70-110 SODIUM NA-STAT [id number] 20:59:00 Test Item Value Reference Range Comments SODIUM (BEAKER) (test isve=769) 136 meq/L 135-148 POTASSIUM-STAT [id number] 20:59:00 Test Item Value Reference Range Comments POTASSIUM (BEAKER) (test ksvo=683) 3.7 meq/L 3.6-5.5 PROTHROMBIN [id number] 20:13:00 Test Item Value Reference Range Comments PROTIME (BEAKER) (test szun=823) 18.1 seconds 11.7-14.7 INR (BEAKER) (test fezc=294) 1.5 <=5.9 RECOMMENDED COUMADIN/WARFARIN INR THERAPY RANGESSTANDARD DOSE: 2.0 - 3.0 Includes: PROPHYLAXIS forvenous thrombosis, systemic embolization; TREATMENT for venous thrombosis and/or pulmonary embolus.HIGH RISK: Target INR is 2.5-3.5 for patients with mechanical heart valves.[id number] 20:13:00 Test Item Value Reference Range Comments PARTIAL THROMBOPLASTIN TIME (BEAKER) (test 28.3 seconds 22.5-36.0 pmcm=232) [id number] 20:13:00 Test Item Value Reference Range Comments FIBRINOGEN LEVEL (BEAKER) (test trql=053) 194 mg/dl 225-434 BASIC METABOLIC [id number] 19:57:00 Test Item Value Reference Range Comments SODIUM (BEAKER) (test 142 meq/L 136-145 nrvv=010) POTASSIUM (BEAKER) (test 3.7 meq/L 3.5-5.1 snzl=886) CHLORIDE (BEAKER) (test 111 meq/L 98-107 rkls=099) CO2 (BEAKER) (test 24 meq/L 22-29 uiju=628) BLOOD UREA NITROGEN 13 mg/dL 7-21 (BEAKER) (test pjwb=112) CREATININE (BEAKER) (test 0.70 mg/dL 0.57-1.25 gdhy=541) GLUCOSE RANDOM (BEAKER) 139 mg/dL 70-105 (test zcwv=739) CALCIUM (BEAKER) (test 8.5 mg/dL 8.4-10.2 aoyi=811) EGFR (BEAKER) (test 141 mL/min/1.73 sq m ESTIMATED GFR IS NOT xuir=8549) ACCURATE CREATININE CLEARANCE IN PREDICTING GLOMERULAR FILTRATION RATE. ESTIMATED GFR IS NOT APPLICABLE FOR DIALYSIS PATIENTS. [id number] 19:53:00 Test Item Value Reference Range Comments PHOSPHORUS (BEAKER) (test ibpy=304) 3.2 mg/dL 2.3-4.7 [id number] 19:53:00 Test Item Value Reference Range Comments MAGNESIUM (BEAKER) (test mjbm=150) 2.4 mg/dL 1.6-2.6 CBC W/PLT COUNT & AUTO [id number] 19:50:00 Test Item Value Reference Range Comments WHITE BLOOD CELL COUNT (BEAKER) (test pefq=107) 23.7 K/ L 3.5-10.5 RED BLOOD CELL COUNT (BEAKER) (test jdzd=560) 3.73 M/ L 4.63-6.08 HEMOGLOBIN (BEAKER) (test qoru=839) 11.2 GM/DL 13.7-17.5 HEMATOCRIT (BEAKER) (test fscg=935) 34.8 % 40.1-51.0 MEAN CORPUSCULAR VOLUME (BEAKER) (test whog=138) 93.3 fL 79.0-92.2 MEAN CORPUSCULAR HEMOGLOBIN (BEAKER) (test 30.0 pg 25.7-32.2 qvuk=979) MEAN CORPUSCULAR HEMOGLOBIN CONC (BEAKER) (test 32.2 GM/DL 32.3-36.5 cgzx=397) RED CELL DISTRIBUTION WIDTH (BEAKER) (test 13.1 % 11.6-14.4 hwvn=837) PLATELET COUNT (BEAKER) (test vvcb=799) 225 K/CU MM 150-450 MEAN PLATELET VOLUME (BEAKER) (test vqpi=895) 10.2 fL 9.4-12.4 NUCLEATED RED BLOOD CELLS (BEAKER) (test 0 /100 WBC 0-0 ulvk=704) NEUTROPHILS RELATIVE PERCENT (BEAKER) (test 75 % swqn=381) LYMPHOCYTES RELATIVE PERCENT (BEAKER) (test 18 % qvpg=344) MONOCYTES RELATIVE PERCENT (BEAKER) (test 6 % pexf=238) EOSINOPHILS RELATIVE PERCENT (BEAKER) (test 1 % gzbv=429) BASOPHILS RELATIVE PERCENT (BEAKER) (test 0 % qnrg=323) NEUTROPHILS ABSOLUTE COUNT (BEAKER) (test 17.66 K/ L 1.78-5.38 sfio=313) LYMPHOCYTES ABSOLUTE COUNT (BEAKER) (test 4.16 K/ L 1.32-3.57 rslr=725) MONOCYTES ABSOLUTE COUNT (BEAKER) (test 1.37 K/ L 0.30-0.82 dygn=063) EOSINOPHILS ABSOLUTE COUNT (BEAKER) (test 0.15 K/ L 0.04-0.54 cdoj=677) BASOPHILS ABSOLUTE COUNT (BEAKER) (test 0.06 K/ L 0.01-0.08 xsxy=092) IMMATURE GRANULOCYTES-RELATIVE PERCENT (BEAKER) 1 % 0-1 (test mfvb=9839) BLOOD GAS, [id number] 19:46:00 Test Item Value Reference Range Comments PH ARTERIAL (BEAKER) (test rmcn=049) 7.37 7.35-7.45 PCO2 ARTERIAL (BEAKER) (test efwz=083) 44 mmHg 35-45 PO2 ARTERIAL (BEAKER) (test mywd=493) 89 mmHg 80-90 O2 SATURATION ARTERIAL (BEAKER) (test vspa=642) 97.0 % 96.0-97.0 HCO3 ARTERIAL (BEAKER) (test edef=547) 25 mmol/L 21-29 BASE EXCESS ARTERIAL (BEAKER) (test fhlt=080) -0.6 mmol/L -2.0-3.0 PATIENT TEMPERATURE (BEAKER) (test kipw=3475) 35.7 C FIO2 (BEAKER) (test itrn=4053) 60.0 % RAD, CHEST, 1 VIEW, NON [id number] 19:36:00Reason for exam:->Status post CV Surgery post [...] MDReport Verified Date/Time: 11/03/2018 19:36:24 Reading Location: [address] Ortho Consult Reading Room Electronically signedby: LUIS HAYS M.D. on 11/03/2018 07:36 PMLACTIC ACID, ARTERIAL, WHOLE [id number] 19:35:00 Test Item Value Reference Range Comments LACTATE BLOOD ARTERIAL (2) (BEAKER) (test 1.6 mmol/L 0.5-2.2 atck=9825) CALCIUM, [id number] 19:24:00 Test Item Value Reference Range Comments CALCIUM IONIZED (BEAKER) (test pgar=399) 1.17 mmol/L 1.12-1.27 PH, BLOOD (BEAKER) (test jfkl=8896) 7.29 OXYGEN SATURATION, [id number] 19:23:00 Test Item Value Reference Range Comments O2 SATURATION (MEASURED) (BEAKER) (test xcgx=4703) 79.9 % BLOOD GAS, [id number] 16:41:00 Test Item Value Reference Range Comments PH ARTERIAL (BEAKER) (test wlbm=886) 7.42 7.35-7.45 PCO2 ARTERIAL (BEAKER) (test llwx=556) 40 mmHg 35-45 PO2 ARTERIAL (BEAKER) (test ftfv=742) 370 mmHg 80-90 O2 SATURATION ARTERIAL (BEAKER) (test ssio=075) 99.8 % 96.0-97.0 HCO3 ARTERIAL (BEAKER) (test oyhs=887) 26 mmol/L 21-29 BASE EXCESS ARTERIAL (BEAKER) (test gcrr=899) 0.9 mmol/L -2.0-3.0 PATIENT TEMPERATURE (BEAKER) (test hyuo=4594) 35.0 C FIO2 (BEAKER) (test dlua=2250) 80.0 % SODIUM NA-STAT [id number] 16:41:00 Test Item Value Reference Range Comments SODIUM (BEAKER) (test zrxj=039) 134 meq/L 135-148 GLUCOSE-STAT [id number] 16:41:00 Test Item Value Reference Range Comments GLUCOSE RANDOM (BEAKER) (test xwpb=898) 187 mg/dL 70-110 HGB/HCT (H&H) - STAT [id number] 16:41:00 Test Item Value Reference Range Comments HEMOGLOBIN (BEAKER) (test uqyy=087) 9.5 g/dL 13.0-16.8 HEMATOCRIT (BEAKER) (test zigu=309) 28.0 % 40.0-50.0 POTASSIUM-STAT [id number] 16:40:00 Test Item Value Reference Range Comments POTASSIUM (BEAKER) (test uoub=487) 4.4 meq/L 3.6-5.5 SODIUM NA-STAT [id number] 16:11:00 Test Item Value Reference Range Comments SODIUM (BEAKER) (test qzdy=558) 136 meq/L 135-148 POTASSIUM-STAT [id number] 16:11:00 Test Item Value Reference Range Comments POTASSIUM (BEAKER) (test brvx=575) 3.9 meq/L 3.6-5.5 BLOOD GAS, [id number] 16:11:00 Test Item Value Reference Range Comments PH ARTERIAL (BEAKER) (test fjcw=228) 7.38 7.35-7.45 PCO2 ARTERIAL (BEAKER) (test axth=078) 41 mmHg 35-45 PO2 ARTERIAL (BEAKER) (test tblp=490) 360 mmHg 80-90 O2 SATURATION ARTERIAL (BEAKER) (test fcem=208) 99.8 % 96.0-97.0 HCO3 ARTERIAL (BEAKER) (test vvgc=569) 26 mmol/L 21-29 BASE EXCESS ARTERIAL (BEAKER) (test vdst=793) -1.3 mmol/L -2.0-3.0 PATIENT TEMPERATURE (BEAKER) (test zmms=9340) 30.0 C FIO2 (BEAKER) (test dkws=9894) 80.0 % GLUCOSE-STAT [id number] 16:11:00 Test Item Value Reference Range Comments GLUCOSE RANDOM (BEAKER) (test sygw=510) 169 mg/dL 70-110 HGB/HCT (H&H) - STAT [id number] 16:11:00 Test Item Value Reference Range Comments HEMOGLOBIN (BEAKER) (test fdsx=781) 9.3 g/dL 13.0-16.8 HEMATOCRIT (BEAKER) (test egdg=401) 27.0 % 40.0-50.0 SODIUM NA-STAT [id number] 15:24:00 Test Item Value Reference Range Comments SODIUM (BEAKER) (test wcfr=919) 141 meq/L 135-148 BLOOD GAS, [id number] 15:24:00 Test Item Value Reference Range Comments PH ARTERIAL (BEAKER) (test slyd=867) 7.39 7.35-7.45 PCO2 ARTERIAL (BEAKER) (test ypad=641) 42 mmHg 35-45 PO2 ARTERIAL (BEAKER) (test fkli=504) 260 mmHg 80-90 O2 SATURATION ARTERIAL (BEAKER) (test yjse=635) 99.6 % 96.0-97.0 HCO3 ARTERIAL (BEAKER) (test kepx=739) 25 mmol/L 21-29 BASE EXCESS ARTERIAL (BEAKER) (test himb=538) -0.2 mmol/L -2.0-3.0 PATIENT TEMPERATURE (BEAKER) (test hxad=0244) 35.8 C FIO2 (BEAKER) (test wdgm=1059) 100.0 % POTASSIUM-STAT [id number] 15:24:00 Test Item Value Reference Range Comments POTASSIUM (BEAKER) (test nsov=844) 3.2 meq/L 3.6-5.5 GLUCOSE-STAT [id number] 15:24:00 Test Item Value Reference Range Comments GLUCOSE RANDOM (BEAKER) (test zosp=784) 114 mg/dL 70-110 HGB/HCT (H&H) - STAT [id number] 15:24:00 Test Item Value Reference Range Comments HEMOGLOBIN (BEAKER) (test dxam=776) 13.3 g/dL 13.0-16.8 HEMATOCRIT (BEAKER) (test rsda=519) 39.0 % 40.0-50.0 RAD, CHEST, 1 VIEW, NON [id number] 14:37:00Reason for exam:->Pre op Screening Should this be performed at the bedside?->YesFINAL REPORT INDICATION: Pre op Screening COMPARISON:None. TECHNIQUE: Chest radiograph, single view, portable technique. FINDINGS / IMPRESSION: Lung volumes are normal. No consolidation, pulmonary edema, pneumothorax, or pleural effusion is demonstrated. Focal calcified plaque in the aortic arch is noted. Heart shadow is normal in size. Osseous structures unremarkable. Signed: [facility] Verified Date/Time: 11/03/2018 14:37:49 Reading Location: [address] Ortho Consult Reading Room CBC W/PLT COUNT & AUTO [id number] 13:09:00 Test Item Value Reference Range Comments WHITE BLOOD CELL COUNT (BEAKER) (test mobh=491) 15.4 K/ L 3.5-10.5 RED BLOOD CELL COUNT (BEAKER) (test wyxl=851) 4.81 M/ L 4.63-6.08 HEMOGLOBIN (BEAKER) (test lteo=207) 14.3 GM/DL 13.7-17.5 HEMATOCRIT (BEAKER) (test lfxx=786) 43.3 % 40.1-51.0 MEAN CORPUSCULAR VOLUME (BEAKER) (test jfpq=389) 90.0 fL 79.0-92.2 MEAN CORPUSCULAR HEMOGLOBIN (BEAKER) (test 29.7 pg 25.7-32.2 dkcz=658) MEAN CORPUSCULAR HEMOGLOBIN CONC (BEAKER) (test 33.0 GM/DL 32.3-36.5 smxh=441) RED CELL DISTRIBUTION WIDTH (BEAKER) (test 13.0 % 11.6-14.4 ccol=631) PLATELET COUNT (BEAKER) (test dabg=761) 335 K/CU MM 150-450 MEAN PLATELET VOLUME (BEAKER) (test rdst=042) 9.7 fL 9.4-12.4 NUCLEATED RED BLOOD CELLS (BEAKER) (test 0 /100 WBC 0-0 azss=644) (CELLAVISION MANUAL DIFF)2018-11-03 13:09:00 Test Item Value Reference Range Comments NEUTROPHILS - REL (CELLAVISION)(BEAKER) (test 68 % pkab=4216) LYMPHOCYTES - REL (CELLAVISION)(BEAKER) (test 24 % qwaj=9390) MONOCYTES - REL (CELLAVISION)(BEAKER) (test 5 % egvt=0894) BANDS - REL (CELLAVISION)(BEAKER) (test 1 % 0-10 zftw=4291) ATYPICAL LYMPHOCYTES - REL (CELLAVISION)(BEAKER) 2 % 0-0 (test bfau=7820) NEUTROPHILS - ABS (CELLAVISION)(BEAKER) (test 10.47 K/ul 1.78-5.38 xors=3254) LYMPHOCYTES - ABS (CELLAVISION)(BEAKER) (test 3.70 K/ul 1.32-3.57 eelh=8189) MONOCYTES - ABS (CELLAVISION)(BEAKER) (test 0.77 K/uL 0.30-0.82 bqzt=4589) BANDS - ABS (CELLAVISION)(BEAKER) (test 0.15 K/uL 0.00-0.80 onzo=6626) ATYPICAL LYMPHOCYTES - ABS (CELLAVISION)(BEAKER) 0.31 K/uL 0.00-0.00 (test dkcp=0003) TOTAL COUNTED (BEAKER) (test cxbc=0320) 100 RBC MORPHOLOGY (BEAKER) (test mxls=582) Normal WBC MORPHOLOGY (BEAKER) (test cont=668) Normal PLT MORPHOLOGY (BEAKER) (test nlbi=598) Normal ARTIFACT (CELLAVISION)(BEAKER) (test fvha=1827) Present PLATELET CONCENTRATION (CELLAVISION)(BEAKER) Adequate (test stmy=8062) Received comment: User comments: Slide comments:[id number] 12:37:00 Test Item Value Reference Range Comments MAGNESIUM (BEAKER) (test zuvf=078) 2.2 mg/dL 1.6-2.6 COMPREHENSIVE METABOLIC [id number] 12:37:00 Test Item Value Reference Range Comments TOTAL PROTEIN (BEAKER) 7.6 gm/dL 6.0-8.3 (test gozc=307) ALBUMIN (BEAKER) (test 4.1 g/dL 3.5-5.0 tdod=1832) ALKALINE PHOSPHATASE 76 U/L 40-150 (BEAKER) (test lbmn=632) BILIRUBIN TOTAL (BEAKER) 0.3 mg/dL 0.2-1.2 (test dfcx=698) SODIUM (BEAKER) (test 143 meq/L 136-145 aajd=578) POTASSIUM (BEAKER) (test 3.6 meq/L 3.5-5.1 tlhd=540) CHLORIDE (BEAKER) (test 108 meq/L 98-107 kpwa=232) CO2 (BEAKER) (test 25 meq/L 22-29 edcd=223) BLOOD UREA NITROGEN 14 mg/dL 7-21 (BEAKER) (test fxmg=937) CREATININE (BEAKER) (test 0.74 mg/dL 0.57-1.25 kxsw=435) GLUCOSE RANDOM (BEAKER) 88 mg/dL 70-105 (test jgte=116) CALCIUM (BEAKER) (test 9.6 mg/dL 8.4-10.2 gsuz=301) AST (SGOT) (BEAKER) (test 17 U/L 5-34 aswk=971) ALT (SGPT) (BEAKER) (test 18 U/L 6-55 zmcc=160) EGFR (BEAKER) (test 132 mL/min/1.73 sq ESTIMATED GFR IS NOT asfo=4490) m ACCURATE CREATININE CLEARANCE IN PREDICTING GLOMERULAR FILTRATION RATE. ESTIMATED GFR IS NOT APPLICABLE FOR DIALYSIS PATIENTS. LIPID [id number] 12:37:00 Test Item Value Reference Range Comments TRIGLYCERIDES (BEAKER) (test jriu=001) 168 mg/dL CHOLESTEROL (BEAKER) (test zzzt=783) 225 mg/dL HDL CHOLESTEROL (MICHAELAKER) (test qrrj=225) 45 mg/dL LDL CHOLESTEROL CALCULATED (MICHAELAKER) (test 146 mg/dL ueym=968) Triglyceride Reference Range: Low Risk <150 Borderline 150- 199 High Risk 200-499 Very High Risk >=500Cholesterol Reference Range: Low Risk <200 Borderline 200-239 High Risk > 240HDL Cholesterol Reference Range: Low Risk >=60 High Risk <40LDL Cholesterol Reference Range: Optimal <100 Near Optimal 100-129 Borderline 130-159 High 160-189 Very High >=[id number] 12:23:00 Test Item Value Reference Range Comments PARTIAL THROMBOPLASTIN TIME (MICHAELAKER) (test 26.4 seconds 22.5-36.0 mdap=453) PROTHROMBIN TIME/[id number] 12:22:00 Test Item Value Reference Range Comments PROTIME (VI) (test bggp=611) 12.8 seconds 11.7-14.7 INR (MICHAELAKER) (test rhaq=185) 1.0 <=5.9 RECOMMENDED COUMADIN/WARFARIN INR THERAPY RANGESSTANDARD DOSE: 2.0 - 3.0 Includes: PROPHYLAXIS forvenous thrombosis, systemic embolization; TREATMENT for venous thrombosis and/or pulmonary embolus.HIGH RISK: Target INR is 2.5-3.5 for patients with mechanical heart valves.
[2019-03-12 21:59] LABS: Absolute Lymphocytes (CBC) 2.8 K/uL (0.7-4.9); Basophils % 0.8 % (0-1.3); Eosinophils % 2.3 % (0-4.4); Hematocrit 39.3 % (39.6-49.0); Lymphocytes % 23.2 % (15.3-44.8); MPV 8.6 fL (7.6-11.3); Monocytes % 10.8 % (3.3-12.3); RBC Red Blood Cell Count 4.48 M/uL (4.33-5.43)
[2019-03-12] MEDS ORDERED: LIDOCAINE 2% W/EPI 1:200,000 MPF 20 ML VIAL IM ONE (21:59)
[2019-03-12 22:18] LABS: Albumin 3.4 g/dL (3.4-5.0); Bilirubin Total 0.2 mg/dL (0.2-1.0); Potassium 3.8 mmol/L (3.5-5.1); Protein, Total 7.1 g/dL (6.4-8.2); Uric Acid 9.8 mg/dL (3.5-7.2)
[2019-03-12 23:15] LABS: Appearance SLT. TURBID (CLEAR); Body Fluid Source SYNOVIAL; Body Fluid WBC 3 /mm^3; Color of fluid White (COLORLESS)
--- NOTE | 2019-03-12 23:36 | EDPHYS ---
Physician Documentation [facility] Name: Goyo Correa Jr Age: 58 yrs Sex: Male : 1960 Arrival Date: 03/12/2019 Time: 20:51 Bed 19 Private MD: Abner Oconnor T ED Physician John Beauchamp HPI: 03/12 22:12 This 58 yrs old Male presents to ER via Wheelchair with complaints of Knee ps1 Pain. 22:12 pt c/o atraumatic left knee pain and swelling. Onset yesterday. No fever or redness. ps1 Pain rated moderate worse with ambulation. Possible hx of gout in past. . Historical: - Allergies: 20:56 Bees; la1 20:56 Cefuroxime; la1 20:56 Zithromax; la1 - PMHx: 20:56 Hypertension; Myocardial infarction; la1 - Immunization history:: Adult Immunizations up to date. - Social history:: Smoking status: Patient/guardian denies using tobacco. - Ebola Screening: : No symptoms or risks identified at this time. ROS: 22:12 Constitutional: Negative for fever, chills, and weight loss, Eyes: Negative for injury, ps1 pain, redness, and discharge, Cardiovascular: Negative for chest pain, palpitations, and edema, Respiratory: Negative for shortness of breath, cough, wheezing, and pleuritic chest pain, Abdomen/GI: Negative for abdominal pain, nausea, vomiting, diarrhea, and constipation, Back: Negative for injury and pain, Neuro: Negative for headache, weakness, numbness, tingling, and seizure, Psych: Negative for depression, anxiety, suicide ideation, homicidal ideation, and hallucinations. 22:12 MS/extremity: Positive for swelling, tenderness. Exam: 22:12 Constitutional: This is a well developed, well nourished patient who is awake, alert, ps1 and in no acute distress. Head/Face: Normocephalic, atraumatic. Eyes: Pupils equal round and reactive to light, extra-ocular motions intact. Lids and lashes normal. Conjunctiva and sclera are non-icteric and not injected. Cardiovascular: Regular rate and rhythm. No gallops, murmurs, or rubs. Normal PMI, no JVD. No pulse deficits. Respiratory: Lungs have equal breath sounds bilaterally, clear to auscultation and percussion. No rales, rhonchi or wheezes noted. No increased work of breathing, no retractions or nasal flaring. Abdomen/GI: Soft, non-tender, with normal bowel sounds. No distension or tympany. No guarding or rebound. No evidence of tenderness throughout. 22:12 Musculoskeletal/extremity: Extremities: grossly normal except: noted in the left knee: swelling, tenderness, effusion, mild. Vital Signs: 20:58 BP 117 / 75; Pulse 74; Resp 18; Temp 98.4; Pulse Ox 98% on R/A; Weight 97.52 kg; Height la1 5 ft. 9 in. (175.26 cm); 23:07 BP 122 / 70; Pulse 64; Resp 16; Temp 98.3(O); Pulse Ox 98% on R/A; lt1 23:30 BP 122 / 70; Pulse 60; Resp 16; Pulse Ox 97% on R/A; rv 23:50 BP 138 / 74; Pulse 71; Resp 17; Temp 98; Pulse Ox 99% ; rv 20:58 Body Mass Index 31.75 (97.52 kg, 175.26 cm) la1 MDM: 21:35 Patient medically screened. ps1 03/12 21:34 Order name: CBC with Diff ps1 03/12 21:34 Order name: CMP ps1 03/12 21:34 Order name: Fluid Crystals; Complete Time: 23:32 ps1 03/12 21:34 Order name: Fluid Cell Count,Body; Complete Time: 23:32 ps1 03/12 21:34 Order name: ESR; Complete Time: 22:40 ps1 03/12 21:34 Order name: Uric Acid; Complete Time: 22:40 ps1 03/12 21:35 Order name: CBC with Automated Diff; Complete Time: 22:40 EDMS 03/12 21:35 Order name: Comprehensive Metabolic Panel; Complete Time: 22:40 EDMS Administered Medications: 23:48 Drug: [place] 10 mg-325 mg 1 tabs Route: PO; rv 23:58 Follow up: Response: Medication administered at discharge. rv Disposition: 03/12/19 23:35 Discharged to Home. Impression: inflammatory effusion left knee. - Condition is Stable. - Discharge Instructions: Gout. - Prescriptions for Colchicine- Probenecid 0.5-500 mg Oral Tablet - take 1 tablet by ORAL route every 1 hour up to 3 hours; 3 tablet. Allopurinol 100 mg Oral Tablet - take 1 tablet by ORAL route once daily; 30 tablet. indomethacin 50 mg Oral capsule - take 1 capsule by ORAL route 3 times per day with food; 30 capsule. - Medication Reconciliation Form, Thank You Letter, Antibiotic Education, Prescription Opioid Use, Work release form form. - Follow up: Yonis Zee MD; When: 48 Hours; Reason: Further diagnostic work-up, Recheck today's complaints. Follow up: Emergency Department; When: As needed; Reason: Fever > 102 F, Worsening of condition. - Problem is new. - Symptoms have improved. Signatures: Dispatcher [employer] EDMS Nemesio Everett RN RN la1 John Beauchamp MD MD ps1 Phoenix Iraheta RN RN rv Corrections: (The following items were deleted from the chart) 23:59 23:35 03/12/2019 23:35 Discharged to Home. Impression: inflammatory effusion left knee. rv Condition is Stable. Forms are Medication Reconciliation Form, Thank You Letter, Antibiotic Education, Prescription Opioid Use. Follow up: Yonis Zee; When: 48 Hours; Reason: Further diagnostic work-up, Recheck today's complaints. Follow up: Emergency Department; When: As needed; Reason: Fever > 102 F, Worsening of condition. Problem is new. Symptoms have improved. ps1
--- NOTE | 2019-03-12 23:36 | ER ---
Nurse's Notes [facility] Name: Goyo Correa Jr Age: 58 yrs Sex: Male : 1960 Arrival Date: 03/12/2019 Time: 20:51 Bed 19 Private MD: Abner Oconnor T Diagnosis: inflammatory effusion left knee Presentation: 03/12 20:56 Presenting complaint: Patient states: I was at home today and I started having a la1 throbbing pain in my knee and bruising to my inner thigh . Pt denies known injuries. Pt reports he is on blood thinner S/P CABG about 3 months ago. Transition of care: patient was not received from another setting of care. Onset of symptoms was March 12, 2019. Risk Assessment: Do you want to hurt yourself or someone else? Patient reports no desire to harm self or others. Initial Sepsis Screen: Does the patient meet any 2 criteria? No. Patient's initial sepsis screen is negative. Does the patient have a suspected source of infection? No. Patient's initial sepsis screen is negative. Care prior to arrival: None. 20:56 Method Of Arrival: Wheelchair la1 20:56 Acuity: BELLE 3 la1 Historical: - Allergies: 20:56 Bees; la1 20:56 Cefuroxime; la1 20:56 Zithromax; la1 - PMHx: 20:56 Hypertension; Myocardial infarction; la1 - Immunization history:: Adult Immunizations up to date. - Social history:: Smoking status: Patient/guardian denies using tobacco. - Ebola Screening: : No symptoms or risks identified at this time. Screenin:56 Abuse screen: Denies threats or abuse. Denies injuries from another. Nutritional aj screening: No deficits noted. Tuberculosis screening: No symptoms or risk factors identified. Fall Risk None identified. Assessment: 21:54 General: Appears in no apparent distress. uncomfortable, Behavior is calm, cooperative, aj appropriate for age. Pain: Complains of pain in left knee. Neuro: Level of Consciousness is awake, alert, obeys commands, Oriented to person, place, time, situation, Appropriate for age. Respiratory: Airway is patent Respiratory effort is even, unlabored, Respiratory pattern is regular, symmetrical. Derm: Skin is intact, is healthy with good turgor, Skin is pink, warm \T\ dry. normal. Musculoskeletal: Range of motion: limited in left knee Swelling present in left knee Reports pain in left knee. Vital Signs: 20:58 BP 117 / 75; Pulse 74; Resp 18; Temp 98.4; Pulse Ox 98% on R/A; Weight 97.52 kg; Height la1 5 ft. 9 in. (175.26 cm); 23:07 BP 122 / 70; Pulse 64; Resp 16; Temp 98.3(O); Pulse Ox 98% on R/A; lt1 23:30 BP 122 / 70; Pulse 60; Resp 16; Pulse Ox 97% on R/A; rv 23:50 BP 138 / 74; Pulse 71; Resp 17; Temp 98; Pulse Ox 99% ; rv 20:58 Body Mass Index 31.75 (97.52 kg, 175.26 cm) la1 ED Course: 20:51 Patient arrived in ED. mr 20:51 Abner Oconnor MD is Private Physician. mr 20:56 Arm band placed on left wrist. la1 20:58 Triage completed. la1 21:04 Alma Torrez, RN is Primary Nurse. aj 21:05 John Beauchamp MD is Attending Physician. ps1 21:55 Inserted saline lock: 22 gauge in right hand, using aseptic technique. Blood collected. aj 21:57 Patient has correct armband on for positive identification. Placed in gown. Bed in low aj position. Call light in reach. Report given to Phoenix CAMP. 21:59 Report received from ALMA CAMP. Pulse ox on. NIBP on. rv 23:34 Yonis Zee MD is Referral Physician. ps1 23:51 No provider procedures requiring assistance completed. IV discontinued, intact, rv bleeding controlled, No redness/swelling at site. Pressure dressing applied. Administered Medications: 23:48 Drug: [place] 10 mg-325 mg 1 tabs Route: PO; rv 23:58 Follow up: Response: Medication administered at discharge. rv Outcome: 23:35 Discharge ordered by . ps1 23:51 Discharged to home ambulatory. rv 23:51 Condition: good 23:51 Discharge instructions given to patient, family, Instructed on discharge instructions, follow up and referral plans. medication usage, Demonstrated understanding of instructions, follow-up care, medications, Prescriptions given X 3. 23:59 Patient left the ED. rv Signatures: Alma Torrez RN RN Emily Tapia mr Marguerite, Nemesio RN RN la1 John Beauchamp MD MD ps1 Vicente, Ronaldo, RN RN Rachel Mars [facility]
[2019-03-12] MEDS ORDERED: HYDROCODONE/APAP 10/325 TAB ONE (23:58)
[2019-03-13 00:45] VITALS: BP 138/74; TEMP 98; O2SAT 99
== END 2019-03-12 23:59 | disposition home or self-care (01) ==
LOC: ER 20:49
DX: M25.462 Effusion, left knee (principal); Z91.030 Bee allergy status; Z88.3 Allergy status to other anti-infective agents
CPT/HCPCS: 36415; 80053; 84550; 85025; 85652; 89050; 89060; 99284